=== PATIENT | female | born 1995 | race African-American/Black ===

== ENCOUNTER 2020-06-04 20:45 | Inpatient (IN) | payer SELFPAY ==
[2020-06-04 20:51] VITALS: BMI 21.8
--- NOTE | 2020-06-04 21:06 | PDOC ---
History of Present Illness - General Chief Complaint: Pain Stated Complaint: VOMITTING Time Seen by Provider: 06/04/20 21:05 - History of Present Illness Initial Comments: 25 yo F w/ history of ulcers p/w one day of vomiting and ABD pain. The vomiting started at 5am. She initially vomited a yellow-green, but by this evening it has turned brown w/ red streaks. She has been unable to eat since yesterday. States that when she cannot keep any food or drink down. A similar but less severe episode occurred in August 2019. She is prescribed pantoprazole, ranitidine, and carafate but admits to not being adherent. The ABD pain started this morning as well. It is on the R ABD anterior and posterior from the epigastric area to the level of the umbilicus. It is constant sharp and 7-8/10 that goes up to 10/10 when she wretches/dry heaves. She states the location of the pain is where her ulcers are/were. She has not had a recent endoscopy. Denies recent illness, recent travel, or EtOH use. Denies recent use of marijuana or any other illicit drug. +sexually active a few days ago with a man and does not use protection (no control or condom). Denies dysuria, hematuria, discharge +passed gas today and reports some diarrhea. 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 MSK: no loss of strength Neuro: no vertigo, WILSON, sleep changes. PE VS: 100.2deg F , 96bpm, 19RR, 100%ora Constitutional: Young female in moderate-severe distress. no odor of alcohol or marijuana Neuro: A/O x3 Skin: appears dry and hot HEENT: head is AT/NC, eyes not jaundiced, PERRLA, nares w/o erythema or exudate CV: RRR, normal S1/S2, no mgr appreciated Lungs: no deformities, normal expansion and respiratory effort, lungs are CTAB ABD: nondistended, no mottling appreciated, no deformities appreciated, ++bowel sounds , heartbeat auscultated on abdomen, non-tympanic, no HSM appreciated, palpation of R epigastric down to R umbilical region on anterior and posterior torso. +CVAtenderness on R. (-) Torres's sign. : deferred Assessment: :25yo sexually active febrile female w/ h/o ulcers p/w CVA tenderness, ABD pain + n/v today. Plan: 1. ABD pain - tylenol, Xray, ABD US, EKG,CT, test 2. n/v - zofran, reglan, IV rehydration, CMP, CBC, Past History - Medical History Allergies/Adverse Reactions: Allergies Allergy/AdvReac Type Severity Reaction Status Date / Time naproxen Allergy Verified 06/04/20 20:51 COPD: No GI Disorders: Yes (ulcer) - Psycho-Social/Smoking History Smoking History: Never smoked - Substance Abuse Hx (Audit-C & DAST Scrn) How often the patient has a drink containing alcohol: Monthly or less How often the patient has six or more drinks on one occasion: Less than monthly Score: In Men: 4 or > Positive; In Women: 3 or > Positive: 2 Screen Result (Pos requires Nsg. Audit-10AR): Negative In the last yr the pt used illegal drug/Rx for NonMed reason: No Score: Yes response is considered Positive: 0 Screen Result (Positive result requires Nsg. DAST-10): Negative *Physical Exam - Vital Signs Last Vital Signs Temp Pulse Resp BP Pulse Ox 98.7 F 96 H 19 100/78 100 06/04/20 20:48 06/04/20 20:48 06/04/20 20:48 06/04/20 20:48 06/04/20 20:48 ED Treatment Course - LABORATORY CBC & Chemistry Diagram: 06/04/20 21:25 06/04/20 21:25 Discharge - Discharge Information Problems reviewed: Yes Clinical Impression/Diagnosis: Intractable abdominal pain, Elevated temperature, History of ulcer disease Vomiting Qualifiers: Vomiting type: unspecified Vomiting Intractability: unspecified Condition: Fair - Admission Yes - Follow up/Referral Referrals: Joseph Muro MD [Staff Physician] - - Patient Discharge Instructions Patient Printed Discharge Instructions: DI for Prescription Opioid Use - Post Discharge Activity
[2020-06-04] MEDS ORDERED: SODIUM CHLORIDE 0.9% 500 ML INFUS.BAG IV ONE ×2 (21:16→23:51)
[2020-06-04] MEDS ORDERED: LACTATED RINGERS SOLUTION 1000 ML INFUS.BAG IV ONE (21:16)
[2020-06-04] MEDS ORDERED: ONDANSETRON 4 MG/2 ML VIAL IVPUSH ONE (21:17)
[2020-06-04] MEDS ORDERED: ACETAMINOPHEN 1000 MG/100 ML VIAL (NON FORMULARY) IVPB ONE (21:18)
--- NOTE | 2020-06-04 21:28 | PDOC ---
Attending Attestation - Resident Resident Name: Fabio Lainez - ED Attending Attestation I have performed the following: I have examined & evaluated the patient, The case was reviewed & discussed with the resident, I agree w/resident's findings & plan - HPI HPI: 06/04/20 21:28 Pt comes with complaint of vomiting and nausea since 5AM; she has a hx of peptic ulcers. Pt has RUQ pain no fam hx of disease. Pt not able to tolerate oral intake Pt smokes pot This may be cannabis hyperemesis - Physicial Exam PE: 06/05/20 00:17 Pt has musculoskeletal pain in her low back on the right side. Pt has no midline tenderness Afebrile VSS diffuse abd pain heart and lungs normal exam - Medical Decision Making 06/04/20 22:15 CBC is normal Hb/HCT is elevated; likely due to dehydration 06/05/20 02:37 Patient Name: ERIKA VALADEZ THIS IS A PRELIMINARY REPORT FROM [facility] DATE OF SERVICE: 2020-06-05 01:07:28 IMAGES: [id number] EXAM: Right upper quadrant abdominal ultrasound HISTORY: Abdominal pain nausea vomiting COMPARISON: None. FINDINGS: Heterogeneous appearing normal-sized liver. Normal gallbladder. No gallstones pericholecystic fluid or gallbladder wall thickening. Normal common bile duct measuring 1.5 mm. No right hydronephrosis. No right upper quadrant free fluid. No obvious pancreatic abnormalities) pancreatitis is best evaluated on CT). 06/05/20 02:38 Pt still feels nauseous and has right sided abd pain. She will get a CT scan of her bad pelvis to r/o pathology including appendicitis. Regardless of the finding, pt will be admitted, as she has nausea and cannot keep food down 06/05/20 03:38 Patient Name: ERIKA VALADEZ THIS IS A PRELIMINARY REPORT FROM [facility] DATE OF SERVICE: 2020-06-05 02:27:21 IMAGES: [id number] EXAM: CT abdomen and pelvis without and with contrast HISTORY: Vomiting and refractory nausea COMPARISON: None. FINDINGS There is no bowel obstruction or inflammation. Negative for diverticulitis or colitis. Normal appendix. No free intraperitoneal air or free fluid. Normal liver. Normal spleen. Normal pancreas. Normal adrenal glands. No urinary tract stone or obstruction. Left renal cyst. On the noncontrast scan the medullary pyramids are slightly dense and they do have a slight brush-like appearance. Nonspecific and not definitive that this can be seen in medullary sponge kidney/renal tubular ectasia. No obvious gallbladder abnormalities. Osseous structures are intact. 06/05/20 04:18 Pt will be admitted to hospitalists for continued pain and nausea. Heart Score/ECG Review - ECG Intrepretation Rhythm: Regular Rhythm - Archer Archer: Normal - P and NM Delta Wave(s) Present: No WPW: No - QRS Poor R Wave Progression: No Q Wave Present: No - ST and T Early Repolarization: No Non Specific ST-T Wave changes: No Flattened T Waves: No Prolonged Q-T Interval: No - ECG Impressions Normal ECG: Yes Non-specific ST Elevation: No Ischemic Changes: No Bradycardia: No Torsades lloyd Pointes: No Discharge - Discharge Information Problems reviewed: Yes Clinical Impression/Diagnosis: Intractable vomiting with nausea, Intractable abdominal pain, Elevated temperature, History of ulcer disease Vomiting Qualifiers: Vomiting type: unspecified Vomiting Intractability: unspecified Condition: Improved - Follow up/Referral - Patient Discharge Instructions - Post Discharge Activity
[2020-06-04 21:40] LABS: BASO % 0.7 % (0-2.0); HEMATOCRIT 46.3 % (32.4-45.2); HEMOGLOBIN 15.6 GM/dL (10.7-15.3); LYMPH % 7.9 % (8-40); MCH 31.1 pg (25.7-33.7); MCHC 33.7 g/dl (32.0-36.0); MEAN CELL VOLUME 92.4 fl (80-96); MEAN PLT VOLUME 9.5 fl (7.5-11.1); MONO % 6.7 % (3.8-10.2); NEUT % 84.7 % (42.8-82.8); PLATELET COUNT 286 K/MM3 (134-434); RBC 5.01 M/mm3 (3.60-5.2); RDW 13.9 % (11.6-15.6); WHITE BLOOD COUNT 10.3 K/mm3 (4.0-10.0)
[2020-06-04] MEDS ORDERED: ACETAMINOPHEN INJECTION 100 ML IVPB ONE (21:54)
[2020-06-04] MEDS ORDERED: DICYCLOMINE HCL 20 MG/2 ML AMPUL IM ONE (21:54)
[2020-06-04] MEDS ORDERED: METOCLOPRAMIDE HCL INJECTION 10 MG/2 ML VIAL IVPUSH ONE (21:55)
[2020-06-04] MEDS ORDERED: METOCLOPRAMIDE HCL INJECTION 10 MG/2 ML VIAL ONE (22:02)
[2020-06-04] MEDS ORDERED: FAMOTIDINE 20 MG/50 ML IVPB 20 MG/50 ML MG IVPB ONE ×2 (22:04→22:31)
[2020-06-04 22:18] LABS: ALBUMIN 5.4 g/dl (3.4-5.0); BLOOD UREA NITROGEN 23.3 mg/dL (7-18); CALCIUM 10.7 mg/dL (8.5-10.1); CREATININE 1.1 mg/dL (0.55-1.3); POTASSIUM 3.7 mmol/L (3.5-5.1); TOT PROT 9.4 g/dl (6.4-8.2)
[2020-06-04] MEDS ORDERED: LACTATED RINGERS SOLUTION 1,000 ML/1,000 ML INFUS.BAG IV STA (22:42)
[2020-06-04] MEDS ORDERED: PANTOPRAZOLE SODIUM 40 MG VIAL IVPUSH ONE (23:28)
[2020-06-04] MEDS ORDERED: PANTOPRAZOLE SODIUM 40 MG VIAL ONE (23:30)
[2020-06-04 23:44] LABS: COCAINE, UR NEGATIVE ng/ml (CUTOFF=300); OPIATES, URI NEGATIVE ng/ml (CUTOFF=300); URINE AMPHETAMINES NEGATIVE ng/ml (CUTOFF=500); URINE BARBITURATES NEGATIVE ng/ml (CUTOFF=200)
[2020-06-04 23:46] LABS: URINE COLOR YELLOW
[2020-06-04 23:47] LABS: PH,URINE 5.5 (5.0-8.0); URINE APPEARANCE CLOUDY; URINE BILIRUBIN NEGATIVE (NEGATIVE); URINE GLUCOSE (UA) NEGATIVE (NEGATIVE); URINE KETONE 3+ (NEGATIVE); URINE LEUK ESTERASE NEGATIVE (NEGATIVE); URINE NITRITE NEGATIVE (NEGATIVE); URINE PROTEIN 2+ (NEGATIVE)
[2020-06-04] MEDS ORDERED: HALOPERIDOL LACTATE 5 MG/ML IV ONE (23:51)
[2020-06-04] MEDS ORDERED: HALOPERIDOL LACTATE 5 MG/ML ONE (23:51)
[2020-06-04 23:52] LABS: METHADONE, UR NEGATIVE ng/ml (CUTOFF=300); PHENCYCLIDINE,URINE NEGATIVE ng/ml (CUTOFF=25); URINE BENZODIAZEPINES NEGATIVE ng/ml (CUTOFF=200)
[2020-06-05] MEDS ORDERED: morphine CARPU-JECT 2 MG/1 ML DISP.SYRIN IVPUSH ONE (01:43)
[2020-06-05] MEDS ORDERED: ONDANSETRON 4 MG/2 ML VIAL IVPUSH ONE (01:47)
[2020-06-05] MEDS ORDERED: LACTATED RINGERS SOLUTION 1,000 ML/1,000 ML INFUS.BAG IV STA (01:48)
[2020-06-05] MEDS ORDERED: MORPHINE SULFATE 2 MG/ML VIAL ONE (02:07)
--- NOTE | 2020-06-05 04:40 | PDOC ---
*Physical Exam - Vital Signs Last Vital Signs Temp Pulse Resp BP Pulse Ox 98.7 F 78 17 122/74 98 06/04/20 20:48 06/05/20 00:30 06/05/20 00:30 06/05/20 00:30 06/05/20 00:30 ED Treatment Course - LABORATORY CBC & Chemistry Diagram: 06/04/20 21:25 06/04/20 21:25 - ADDITIONAL ORDERS Additional order review: Laboratory Results 06/04/20 06/04/20 06/04/20 23:28 23:28 23:28 Sodium Potassium Chloride Carbon Dioxide Anion Gap BUN Creatinine Est GFR (CKD-EPI)AfAm Est GFR (CKD-EPI)NonAf Random Glucose Calcium Total Bilirubin AST ALT Alkaline Phosphatase Total Protein Albumin Lipase Urine Color Yellow Urine Appearance Cloudy Urine pH 5.5 Ur Specific [place] 1.038 H Urine Protein 2+ H Urine Glucose (UA) Negative Urine Ketones 3+ H Urine Blood Negative Urine Nitrite Negative Urine Bilirubin Negative Urine Urobilinogen 1.0 Ur Leukocyte Esterase Negative Urine HCG, Qual Negative Opiates Screen Negative Methadone Screen Negative Barbiturate Screen Negative Phencyclidine Screen Negative Ur Amphetamines Screen Negative MDMA (Ecstasy) Screen Negative Benzodiazepines Screen Negative Cocaine Screen Negative U Marijuana (THC) Screen Positive A* 06/04/20 21:25 Sodium 136 Potassium 3.7 Chloride 95 L Carbon Dioxide 24 Anion Gap 17 H BUN 23.3 H Creatinine 1.1 Est GFR (CKD-EPI)AfAm 79.68 Est GFR (CKD-EPI)NonAf 68.75 Random Glucose 117 H Calcium 10.7 H Total Bilirubin 1.0 AST 23 ALT 22 Alkaline Phosphatase 72 Total Protein 9.4 H Albumin 5.4 H Lipase 31 L Urine Color Urine Appearance Urine pH Ur Specific [place] Urine Protein Urine Glucose (UA) Urine Ketones Urine Blood Urine Nitrite Urine Bilirubin Urine Urobilinogen Ur Leukocyte Esterase Urine HCG, Qual Opiates Screen Methadone Screen Barbiturate Screen Phencyclidine Screen Ur Amphetamines Screen MDMA (Ecstasy) Screen Benzodiazepines Screen Cocaine Screen U Marijuana (THC) Screen 06/04/20 21:25 RBC 5.01 MCV 92.4 MCHC 33.7 RDW 13.9 MPV 9.5 Neutrophils % 84.7 H Lymphocytes % 7.9 L Monocytes % 6.7 Eosinophils % 0.0 Basophils % 0.7 - Medications Given in the ED: ED Medications Discontinued Medications Generic Name Dose Route Start Last Admin Trade Name Itz PRN Reason Stop Dose Admin Acetaminophen 1,000 mg 06/04/20 21:18 06/04/20 21:59 Ofirmev Injection - IVPB 06/04/20 21:19 1,000 mg ONCE ONE Administration Dicyclomine HCl 20 mg 06/04/20 21:54 06/04/20 22:08 Bentyl Injection - IM 06/04/20 21:55 20 mg ONCE ONE Administration Diphenhydramine HCl 50 mg 06/04/20 23:32 06/05/20 03:45 Benadryl Injection - IVPB 06/04/20 23:33 Not Given ONCE ONE Haloperidol 5 mg 06/04/20 23:51 06/04/20 23:58 Haldol Injection (Fast Acting) - IV 06/04/20 23:52 5 mg ONCE ONE Administration Famotidine/Sodium Chloride 20 mg in 50 mls @ 100 mls/hr 06/04/20 22:04 06/04/20 22:43 Pepcid 20 Mg Premixed Ivpb - IVPB 06/04/20 22:33 100 mls/hr ONCE ONE Administration Lactated Ringer's 1,000 ml in 1,000 mls @ 1,000 mls/hr 06/04/20 22:42 06/04/20 23:06 Lactated Ringers Solution IV 06/04/20 23:41 1,000 mls/hr ONCE STA Administration Lactated Ringer's 1,000 ml in 1,000 mls @ 1,000 mls/hr 06/05/20 01:48 06/05/20 02:24 Lactated Ringers Solution IV 06/05/20 02:47 1,000 mls/hr ONCE STA Administration Lactated Ringer's 1,000 ml 06/04/20 21:16 06/04/20 21:59 Lactated Ringers Solution IV 06/04/20 21:17 1,000 ml NOW ONE Administration Metoclopramide HCl 10 mg 06/04/20 21:55 06/04/20 22:08 Reglan Injection - IVPUSH 06/04/20 21:56 10 mg ONCE ONE Administration Morphine Sulfate 1 mg 06/05/20 01:43 06/05/20 03:45 Morphine Injection - IVPUSH 06/05/20 01:44 Not Given ONCE ONE Ondansetron HCl 4 mg 06/04/20 21:17 06/04/20 21:27 Zofran Injection IVPUSH 06/04/20 21:18 4 mg ONCE ONE Administration Ondansetron HCl 4 mg 06/05/20 01:47 06/05/20 02:24 Zofran Injection IVPUSH 06/05/20 01:48 4 mg ONCE ONE Administration Pantoprazole Sodium 40 mg 06/04/20 23:28 06/04/20 23:29 Protonix Iv IVPUSH 06/04/20 23:29 40 mg ONCE ONE Administration Sodium Chloride 1,000 ml 06/04/20 21:16 06/04/20 21:52 Normal Saline - IV 06/04/20 21:17 Not Given ONCE ONE Sodium Chloride 1,000 ml 06/04/20 23:51 06/05/20 00:34 Normal Saline - IV 06/04/20 23:52 1,000 ml ONCE ONE Administration Medical Decision Making - Medical Decision Making Discussed case with Dr. Bruce who accepted patient for admission under Dr. Barker 06/05/20 04:39 Discharge - Discharge Information Problems reviewed: Yes Clinical Impression/Diagnosis: Intractable vomiting with nausea Condition: Guarded - Admission Yes - Follow up/Referral Referrals: Joseph Muro MD [Staff Physician] - - Patient Discharge Instructions - Post Discharge Activity
--- NOTE | 2020-06-05 05:32 | HP ---
CHIEF COMPLAINT: I have abdominal pain PCP: none HISTORY OF PRESENT ILLNESS: 25 y F with a PMH of Peptic ulcer disease, presents to ED with 1 d of Abdominal pain associated with nausea, vomiting, anorexia and diarrhea. Patient report that the abdominal pain started while she was sleeping around 5 am. She has vomited about 40x since then. She reports that the pain was 10/10 sharp, constant and now in ED its crampy. She denies any recent endoscopy. She admits that she takes home meds(Zofran and Pepcid) for Ulcers, but is not compliant with her medications. She reports her LMP was at the end of last month with no abnormalities noted. She is currently sexually active with 1 partner, denies use of any control. Patient has no previous admissions to [facility]. ED Course: Patient was given multiple, medications (Acetaminophen 1000mg, Dicyclomine 20mg, Haloperidol 5mg, Metoclopromid inj 4mg, pepcid 20mg, pantoprazole 40mg) for pain and nausea, but patient reports no improvements. Labs were significant for WBC 10.3, BUN/Crea 23.3/1.1, Anion Gap 17 with Calium 10.7 albumin 5.4, UA reveal Protein +3 and Ketones 3+. Negative test. Imaging ( u/s, ABD/pelv CT, CXR, ABD XR) did not reveal any acute pathology. The patient is admitted to [facility] for Management of her acute abdominal pain. ER course was notable for: (1) WBC 10.3 (2) Calcium 10.7 / Albumin 5.4 (3) Proteins +3 albumin 5.4 Recent Travel: Denies PAST MEDICAL HISTORY: As above in HPI PAST SURGICAL HISTORY: Denies Social History: Smoking: Denies Alcohol: Occasionally Drugs: Denies Allergies naproxen Allergy (Verified 06/04/20 20:51) HOME MEDICATIONS: REVIEW OF SYSTEMS CONSTITUTIONAL: Present: loss of appetite Absent: fever, chills, diaphoresis, generalized weakness, malaise HEENT: Absent: rhinorrhea, nasal congestion, throat pain, difficulty swallowing, CARDIOVASCULAR: Absent: chest pain, syncope, palpitations, irregular heart rate, lightheadedness, peripheral edema RESPIRATORY: Absent: cough, shortness of breath, dyspnea with exertion, orthopnea, wheezing GASTROINTESTINAL: Absent: abdominal pain, abdominal distension, nausea, vomiting, diarrhea, constipation GENITOURINARY: Absent: dysuria, frequency, urgency, hesitancy, hematuria, flank pain, genital pain MUSCULOSKELETAL: Present: Back pain Absent: myalgia, arthralgia, joint swelling, back pain, neck pain PHYSICAL EXAMINATION Vital Signs - 24 hr 06/04/20 06/05/20 20:48 00:30 Temperature 98.7 F Pulse Rate 96 H Pulse Rate [ 78 Left Radial] Respiratory 19 17 Rate Blood Pressure 100/78 Blood Pressure 122/74 [Right Arm] O2 Sat by Pulse 100 98 Oximetry (%) GENERAL: Awake, alert, and fully oriented, in no acute distress. HEAD: Normal with no signs of trauma. EYES: Pupils equal, round and reactive to light, extraocular movements intact, sclera anicteric, conjunctiva clear. EARS, NOSE, THROAT: Ears normal, nares patent, oropharynx clear without exudates. Moist mucous membranes. NECK: Normal range of motion, supple without lymphadenopathy, JVD, or masses. LUNGS: Breath sounds equal, clear to auscultation bilaterally. No wheezes, and no crackles. No accessory muscle use. HEART: Regular rate and rhythm, normal S1 and S2 without murmur, rub or gallop. ABDOMEN: Soft, Tenderness to palpation of RUQ and RLQ, not distended, normoactive bowel sounds, no guarding, no rebound, no masses. MUSCULOSKELETAL: Normal range of motion at all joints. No bony deformities or tenderness. CVA tenderness. UPPER EXTREMITIES: 2+ pulses, warm, well-perfused. No cyanosis. No clubbing. No peripheral edema. LOWER EXTREMITIES: 2+ pulses, warm, well-perfused. No calf tenderness. No peripheral edema. NEUROLOGICAL: Cranial nerves II-XII intact. Normal speech. Normal gait. PSYCHIATRIC: Cooperative. Good eye contact. Appropriate mood and affect. SKIN: Warm, dry, normal turgor, no rashes or lesions noted, normal capillary refill. Laboratory Results - last 24 hr 06/04/20 06/04/20 06/04/20 21:25 21:25 23:28 WBC 10.3 H RBC 5.01 Hgb 15.6 H Hct 46.3 H MCV 92.4 MCH 31.1 MCHC 33.7 RDW 13.9 Plt Count 286 MPV 9.5 Absolute Neuts (auto) 8.7 H Neutrophils % 84.7 H Lymphocytes % 7.9 L Monocytes % 6.7 Eosinophils % 0.0 Basophils % 0.7 Nucleated RBC % 0 Sodium 136 Potassium 3.7 Chloride 95 L Carbon Dioxide 24 Anion Gap 17 H BUN 23.3 H Creatinine 1.1 Est GFR (CKD-EPI)AfAm 79.68 Est GFR (CKD-EPI)NonAf 68.75 Random Glucose 117 H Calcium 10.7 H Total Bilirubin 1.0 AST 23 ALT 22 Alkaline Phosphatase 72 Total Protein 9.4 H Albumin 5.4 H Lipase 31 L Urine Color Urine Appearance Urine pH Ur Specific [place] Urine Protein Urine Glucose (UA) Urine Ketones Urine Blood Urine Nitrite Urine Bilirubin Urine Urobilinogen Ur Leukocyte Esterase Urine HCG, Qual Negative Opiates Screen Methadone Screen Barbiturate Screen Phencyclidine Screen Ur Amphetamines Screen MDMA (Ecstasy) Screen Benzodiazepines Screen Cocaine Screen U Marijuana (THC) Screen 06/04/20 06/04/20 23:28 23:28 WBC RBC Hgb Hct MCV MCH MCHC RDW Plt Count MPV Absolute Neuts (auto) Neutrophils % Lymphocytes % Monocytes % Eosinophils % Basophils % Nucleated RBC % Sodium Potassium Chloride Carbon Dioxide Anion Gap BUN Creatinine Est GFR (CKD-EPI)AfAm Est GFR (CKD-EPI)NonAf Random Glucose Calcium Total Bilirubin AST ALT Alkaline Phosphatase Total Protein Albumin Lipase Urine Color Yellow Urine Appearance Cloudy Urine pH 5.5 Ur Specific [place] 1.038 H Urine Protein 2+ H Urine Glucose (UA) Negative Urine Ketones 3+ H Urine Blood Negative Urine Nitrite Negative Urine Bilirubin Negative Urine Urobilinogen 1.0 Ur Leukocyte Esterase Negative Urine HCG, Qual Opiates Screen Negative Methadone Screen Negative Barbiturate Screen Negative Phencyclidine Screen Negative Ur Amphetamines Screen Negative MDMA (Ecstasy) Screen Negative Benzodiazepines Screen Negative Cocaine Screen Negative U Marijuana (THC) Screen Positive A* ASSESSMENT/PLAN: 25 y F with a PMH of Peptic ulcer disease, presents to ED with 1 d of Abdominal pain associated with nausea, vomiting, anorexia and diarrhea. Labs were significant for WBC 10.3, BUN/Crea 23.3/1.1, Anion Gap 17 with Calium 10.7 albumin 5.4, UA reveal Protein +3 and Ketones 3+. Negative test. Imaging ( u/s, ABD/pelv CT, CXR, ABD XR) did not reveal any acute pathology. Physical exam was significant for CVA tenderness. Patient was admitted to [place] for management for her Intractable abdominal pain. #Intractable abdominal pain: - 1 D of 09/02 abdominal pain w/ vomiting, diarrhea and anorexia - Imaging revealed no acute pathology - Sexually active, No contraceptions, Negative urine test - Continue Pain med Acetaminophen 650mg - Continue Zofran 4mg - F/U with Blood culture and Urine Culture - F/U with STI (chlamydia and N. gonorrhea), HIV panel - Continue IVF N/S #Anion Gap #Hypercalcemia #Hyperalbuminemia - Anion Gap 17, Calcium 10.7, Albumin 5.4 - F/U PTH, TSH - F/U Magnesium - F/U HbA1c and BGM #FEN - N/S 83 mls/Hr - Monitor Mg, Calcium, and Albumin - Clear liquid diet # DVT PPx: No chemical PPX at this time, Hx of PUD - SCDs # Dispo: - will continue to monitor patient in [place] Visit type - Emergency Visit Emergency Visit: Yes ED Registration Date: 06/05/20 Care time: The patient presented to the Emergency Department on the above date and was hospitalized for further evaluation of their emergent condition. - New Patient This patient is new to me today: Yes Date on this admission: 06/05/20 - Critical Care Critical Care patient: No ATTENDING PHYSICIAN STATEMENT I saw and evaluated the patient. I reviewed the resident's note and discussed the case with the resident. I agree with the resident's findings and plan as documented. SUBJECTIVE: OBJECTIVE: ASSESSMENT AND PLAN:
--- NOTE | 2020-06-05 07:05 | PN ---
Teaching Attending Note Name of Resident: Louise Faustin ATTENDING PHYSICIAN STATEMENT I saw and evaluated the patient. I reviewed the resident's note and discussed the case with the resident. I agree with the resident's findings and plan as documented. SUBJECTIVE: OBJECTIVE: ASSESSMENT AND PLAN: 25 y Female with a PMHx notable for Peptic ulcer disease, who presents to ED with epigastric pain x [address] abdomen/pelvis with no acute findings. Agree further work-up : check hemoglobin A1c/thyroid function tests, follow-up UA
[2020-06-05] MEDS ORDERED: ACETAMINOPHEN 325 MG TABLET (FP) PO PRN (07:12)
[2020-06-05] MEDS ORDERED: ONDANSETRON 4 MG/2 ML VIAL IVPUSH PRN (07:14)
[2020-06-05] MEDS ORDERED: SODIUM CHLORIDE 1,000 ML IV SCH (07:15)
--- NOTE | 2020-06-05 08:14 | PN ---
Teaching Attending Note Name of Resident: Juliane Carrasco ATTENDING PHYSICIAN STATEMENT I saw and evaluated the patient. I reviewed the resident's note and discussed the case with the resident. I agree with the resident's findings and plan as documented. SUBJECTIVE: Patient feels improved able to tolerate p.o. wants to go home OBJECTIVE: Vital Signs Temperature 98.3 F 06/05/20 06:45 Pulse Rate 69 06/05/20 06:45 Respiratory Rate 17 06/05/20 06:45 Blood Pressure 111/53 L 06/05/20 06:45 O2 Sat by Pulse Oximetry (%) 98 06/05/20 06:45 General: Young female, comfortable, not in distress HEENT mucous membranes moist, no anemia, no jaundice, PERRLA, no nystagmus Neck: No JVD, supple, no bruit, thyroid palpably normal, normal carotid pulsations. Chest: Nontender, clear to auscultation bilaterally CVS: S1-S2 regular no murmur/gallop/rub Abdomen: Mild epigastric tenderness: Nondistended, soft, bowel sounds present. 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 , no gross motor sensory deficit CBC, BMP 06/05/20 11:10 06/05/20 11:10 Hepatic Panel Total Bilirubin 0.8 mg/dL (0.2-1) 06/05/20 11:10 AST 18 U/L (15-37) 06/05/20 11:10 ALT 19 U/L (13-61) 06/05/20 11:10 Alkaline Phosphatase 57 U/L (45-117) 06/05/20 11:10 Albumin 4.0 g/dl (3.4-5.0) 06/05/20 11:10 Lipase: Normal CT abdomen: No acute changes Abdominal ultrasound: No hepatobiliary abnormality ASSESSMENT AND PLAN: 25-year-old female no past medical history presents with acute onset nausea vomiting unable to tolerate, imaging unremarkable for Patient has starvation ketoacidosis with anion gap greatly improved overnight patient improved with conservative management IV hydration stop Zofran and PPI able to tolerate p.o. wants to go home Activity: 1. Acute gastritis: Improved switch to p.o. famotidine and PRN Zofran 2. A starvation ketoacidosis: Resolved tolerating p.o. 3. Anion gap acidosis:) IV hydration 4. Hypokalemia: We will replete before discharge Patient can be discharged home after hypokalemia repletion follow-up with the PMD.
[2020-06-05] MEDS ORDERED: D5-1/2NS+10 MEQ KCL - 10 MEQ/1,000 ML INFUS.BAG IV SCH (08:30)
[2020-06-05] MEDS ORDERED: FAMOTIDINE 20 MG/50 ML IVPB 20 MG/50 ML MG IVPB ONE (09:24)
--- NOTE | 2020-06-05 09:33 | EKG ---
Test Reason : Blood Pressure : / mmHG Vent. Rate : 068 BPM Atrial Rate : 068 BPM P-R Int : 144 ms QRS Dur : 082 ms QT Int : 426 ms P-R-T Axes : 072 072 060 degrees QTc Int : 452 ms SINUS RHYTHM WITH MARKED SINUS ARRHYTHMIA OTHERWISE NORMAL ECG NO PREVIOUS ECGS AVAILABLE Confirmed by Dwaine Chakraborty ([id number]) on 06/05/2020 9:33:18 AM Referred By: Confirmed By:Dwaine Chakraborty
[2020-06-05] MEDS ORDERED: FAMOTIDINE 20 MG/50 ML IVPB 20 MG/50 ML MG IVPB SCH (10:00)
[2020-06-05 11:30] LABS: BASO % 1.1 % (0-2.0); EOS % 0.4 % (0-4.5); HEMATOCRIT 37.2 % (32.4-45.2); HEMOGLOBIN 12.7 GM/dL (10.7-15.3); LYMPH % 26.8 % (8-40); MCH 31.5 pg (25.7-33.7); MCHC 34.1 g/dl (32.0-36.0); MEAN CELL VOLUME 92.2 fl (80-96); MEAN PLT VOLUME 8.7 fl (7.5-11.1); MONO % 12.1 % (3.8-10.2); NEUT % 59.6 % (42.8-82.8); PLATELET COUNT 203 K/MM3 (134-434); RBC 4.04 M/mm3 (3.60-5.2); RDW 14.1 % (11.6-15.6); WHITE BLOOD COUNT 5.4 K/mm3 (4.0-10.0)
[2020-06-05 12:14] LABS: BILIRUBIN,TOTAL 0.8 mg/dL (0.2-1); CALCIUM 8.7 mg/dL (8.5-10.1); CREATININE 0.7 mg/dL (0.55-1.3); MAGNESIUM 2.2 mg/dL (1.8-2.4); PHOSPHOROUS 3.5 mg/dL (2.5-4.9); POTASSIUM 3.3 mmol/L (3.5-5.1)
--- NOTE | 2020-06-05 12:15 | DS ---
Physical Exam: SUBJECTIVE: Patient seen and examined. Patient reports feeling well, has no complaints, and wants to go home. OBJECTIVE: Vital Signs Temperature 98.4 F 06/05/20 12:34 Pulse Rate 83 06/05/20 12:34 Respiratory Rate 20 06/05/20 12:34 Blood Pressure 116/69 06/05/20 12:34 O2 Sat by Pulse Oximetry (%) 98 06/05/20 12:34 PHYSICAL EXAM GENERAL: The patient is awake, alert, and fully oriented, in no acute distress. HEAD: Normal with no signs of trauma. EYES:PERRLA, EOMI, sclera anicteric, conjunctiva clear. ENT:moist mucous membranes. NECK: supple. LUNGS: Breath sounds equal, clear to auscultation bilaterally HEART: Regular rate and rhythm, S1, S2 ABDOMEN: Soft, nontender, nondistended, normoactive bowel sounds NEUROLOGICAL: Cranial nerves II through XII grossly intact. Normal speech PSYCH: Normal mood, normal affect. SKIN: Warm, dry, normal turgor LABS Laboratory Results - last 24 hr 06/04/20 06/04/20 06/04/20 21:25 21:25 23:28 WBC 10.3 H RBC 5.01 Hgb 15.6 H Hct 46.3 H MCV 92.4 MCH 31.1 MCHC 33.7 RDW 13.9 Plt Count 286 MPV 9.5 Absolute Neuts (auto) 8.7 H Neutrophils % 84.7 H Lymphocytes % 7.9 L Monocytes % 6.7 Eosinophils % 0.0 Basophils % 0.7 Nucleated RBC % 0 Sodium 136 Potassium 3.7 Chloride 95 L Carbon Dioxide 24 Anion Gap 17 H BUN 23.3 H Creatinine 1.1 Est GFR (CKD-EPI)AfAm 79.68 Est GFR (CKD-EPI)NonAf 68.75 Random Glucose 117 H Hemoglobin A1c % Calcium 10.7 H Phosphorus Magnesium Total Bilirubin 1.0 AST 23 ALT 22 Alkaline Phosphatase 72 Total Protein 9.4 H Albumin 5.4 H Lipase 31 L Urine Color Urine Appearance Urine pH Ur Specific [place] Urine Protein Urine Glucose (UA) Urine Ketones Urine Blood Urine Nitrite Urine Bilirubin Urine Urobilinogen Ur Leukocyte Esterase Urine HCG, Qual Negative Opiates Screen Methadone Screen Barbiturate Screen Phencyclidine Screen Ur Amphetamines Screen MDMA (Ecstasy) Screen Benzodiazepines Screen Cocaine Screen U Marijuana (THC) Screen 06/04/20 06/04/20 06/05/20 23:28 23:28 11:10 WBC 5.4 RBC 4.04 Hgb 12.7 Hct 37.2 D MCV 92.2 MCH 31.5 MCHC 34.1 RDW 14.1 Plt Count 203 D MPV 8.7 Absolute Neuts (auto) 3.2 Neutrophils % 59.6 D Lymphocytes % 26.8 D Monocytes % 12.1 H D Eosinophils % 0.4 D Basophils % 1.1 Nucleated RBC % 0 Sodium Potassium Chloride Carbon Dioxide Anion Gap BUN Creatinine Est GFR (CKD-EPI)AfAm Est GFR (CKD-EPI)NonAf Random Glucose Hemoglobin A1c % Calcium Phosphorus Magnesium Total Bilirubin AST ALT Alkaline Phosphatase Total Protein Albumin Lipase Urine Color Yellow Urine Appearance Cloudy Urine pH 5.5 Ur Specific [place] 1.038 H Urine Protein 2+ H Urine Glucose (UA) Negative Urine Ketones 3+ H Urine Blood Negative Urine Nitrite Negative Urine Bilirubin Negative Urine Urobilinogen 1.0 Ur Leukocyte Esterase Negative Urine HCG, Qual Opiates Screen Negative Methadone Screen Negative Barbiturate Screen Negative Phencyclidine Screen Negative Ur Amphetamines Screen Negative MDMA (Ecstasy) Screen Negative Benzodiazepines Screen Negative Cocaine Screen Negative U Marijuana (THC) Screen Positive A* 06/05/20 06/05/20 11:10 11:10 WBC RBC Hgb Hct MCV MCH MCHC RDW Plt Count MPV Absolute Neuts (auto) Neutrophils % Lymphocytes % Monocytes % Eosinophils % Basophils % Nucleated RBC % Sodium 138 Potassium 3.3 L Chloride 102 Carbon Dioxide 29 Anion Gap 7 L BUN 12.0 Creatinine 0.7 Est GFR (CKD-EPI)AfAm 137.62 Est GFR (CKD-EPI)NonAf 118.74 Random Glucose 96 Hemoglobin A1c % 5.4 Calcium 8.7 Phosphorus 3.5 Magnesium 2.2 Total Bilirubin 0.8 AST 18 ALT 19 Alkaline Phosphatase 57 Total Protein Albumin 4.0 Lipase Urine Color Urine Appearance Urine pH Ur Specific [place] Urine Protein Urine Glucose (UA) Urine Ketones Urine Blood Urine Nitrite Urine Bilirubin Urine Urobilinogen Ur Leukocyte Esterase Urine HCG, Qual Opiates Screen Methadone Screen Barbiturate Screen Phencyclidine Screen Ur Amphetamines Screen MDMA (Ecstasy) Screen Benzodiazepines Screen Cocaine Screen U Marijuana (THC) Screen HOSPITAL COURSE: Date of Admission:06/05/20 Date of Discharge: 06/05/20 Patient is a 25 y F with a PMH of Peptic ulcer disease, presents to ED with 1 d of Abdominal pain associated with nausea, vomiting, anorexia and diarrhea. Labs were significant for WBC 10.3, BUN/Crea 23.3/1.1, Anion Gap 17 with Calcium 10.7 albumin 5.4, UA reveal Protein +3 and Ketones 3+. Negative test. Imaging ( abdominal u/s, ABD/pelv CT, CXR, ABD XR) did not reveal any acute pathology. Patient was given Tylenol for pain. Patient reported resolution of pain and wanted to go home. Repeat labs in the morning were unremarkable except for hypokalemia. Patient was given KCl prior to discharge and was advised to follow up with [facility]. Minutes to complete discharge: 36 Discharge Summary Problems reviewed: Yes Reason For Visit: INTRACTABLE VOMITTING WITH NAUSEA Current Active Problems Elevated temperature (Acute) History of ulcer disease (Acute) Intractable abdominal pain (Acute) Vomiting (Acute) Condition: Improved - Instructions Diet, Activity, Other Instructions: Your visit You were admitted to the hospital because you had belly pain. CAT scan and ultrasound of your belly was done which was unremarkable. Medications Please take the following medications as prescribed. 1. Famotidine 20mg twice a day. 2. Zofran 4mg every 8 hours as needed for Followup Please follow up with your primary care provider in 1-2 weeks. If you do not have one, we provided you a referral. Additional info Please call 911 or go to the ED if with any worsening fevers, chills, headache, dizziness, chest pain, shortness of breath, belly pain, or any new concerns noted. Referrals: [facility] [place] [facility] [place] [Provider Group] Disposition: HOME - Home Medications Comprehensive Discharge Medication List: Ambulatory Orders Famotidine [Pepcid] 20 mg PO BID #30 tablet 06/05/20 Ondansetron HCl [Zofran] 4 mg PO Q8H PRN #10 tablet 06/05/20 This patient is new to me today: Yes Date on this admission: 06/05/20 Emergency Visit: Yes ED Registration Date: 06/05/20 Care time: The patient presented to the Emergency Department on the above date and was hospitalized for further evaluation of their emergent condition. Critical Care patient: No - Discharge Referral Referred to [facility] No ATTENDING PHYSICIAN STATEMENT I saw and evaluated the patient. I reviewed the resident's note and discussed the case with the resident. I agree with the resident's findings and plan as documented. SUBJECTIVE: OBJECTIVE: ASSESSMENT AND PLAN:
[2020-06-05 12:18] LABS: TOT PROT 7.1 g/dl (6.4-8.2)
[2020-06-05] MEDS ORDERED: POTASSIUM CHLORIDE TABS 10 MEQ TABLET.ER (FP) PO ONE (12:26)
[2020-06-05 12:34] VITALS: BP 116/69; PULSE 83; TEMP 98.4
[2020-06-05] MEDS ORDERED: POTASSIUM CHLORIDE TABS 20 MEQ TABLET.ER (FP) PO ONE (12:41)
[2020-06-05] MEDS ORDERED: POTASSIUM CHLORIDE ORAL LIQUID 20 MEQ/15 ML PO ONE (13:00)
== END 2020-06-05 12:36 | disposition home or self-care (01) | DRG 241 ==
LOC: JER 20:45 → JERBED 06-05 03:40
PROVIDERS: ADMIT Internal Medicine; ATTEND Internal Medicine
DX: K29.00 Acute gastritis without bleeding (principal); E83.52 Hypercalcemia; R10.9 Unspecified abdominal pain; R63.0 Anorexia; Z68.21 Body mass index [BMI] 21.0-21.9, adult; F12.90 Cannabis use, unspecified, uncomplicated; E87.6 Hypokalemia; R11.2 Nausea with vomiting, unspecified; E86.0 Dehydration; N28.1 Cyst of kidney, acquired; E87.2 Acidosis; Z87.11 Personal history of peptic ulcer disease
CPT/HCPCS: 36415; 71046-TC-FY; 74019-TC-FY; 74178-TC; 76705-TC; 80053; 80307; 81003; 83036; 83690; 83735; 83970; 84100; 84443; 84703; 85025; 87040; 87389; 93005; 93010; 99285-25; J0131; Q9967

== ENCOUNTER 2020-06-16 18:58 | Inpatient (IN) | payer OTHER ==
--- NOTE | 2020-06-16 19:10 | PDOC ---
Rapid Medical Evaluation Time Seen by Provider: 06/16/20 19:07 Medical Evaluation: Allergies Allergy/AdvReac Type Severity Reaction Status Date / Time naproxen Allergy Verified 06/04/20 20:51 06/16/20 19:07 Pt presents for evaluation of vomiting. Admits to marijuana use. States warm showers helps her symptoms. Currently with blood tinged vomit in her vomit back Exam: hunched over, actively vomiting Orders: labs, IV, meds Pt to proceed to the ER for further evaluation Discharge Disposition - Diagnosis Intractable vomiting with nausea - Referrals - Patient Instructions - Post Discharge Activity
[2020-06-16] MEDS ORDERED: ACETAMINOPHEN 1000 MG/100 ML VIAL (NON FORMULARY) IVPB ONE (19:11)
[2020-06-16] MEDS ORDERED: METOCLOPRAMIDE HCL INJECTION 10 MG/2 ML VIAL IVPB ONE (19:11)
[2020-06-16] MEDS ORDERED: SODIUM CHLORIDE 1,000 ML IV STA (19:11)
[2020-06-16] MEDS ORDERED: ONDANSETRON 4 MG/2 ML VIAL IVPUSH ONE ×2 (19:11→22:12)
[2020-06-16] MEDS ORDERED: ACETAMINOPHEN INJECTION 100 ML IVPB ONE (19:34)
[2020-06-16] MEDS ORDERED: METOCLOPRAMIDE HCL INJECTION 10 MG/2 ML VIAL ONE (19:34)
[2020-06-16 19:54] LABS: BASO % 0.8 % (0-2.0); EOS % 0.2 % (0-4.5); HEMATOCRIT 45.7 % (32.4-45.2); HEMOGLOBIN 15.6 GM/dL (10.7-15.3); LYMPH % 19.7 % (8-40); MCH 31.6 pg (25.7-33.7); MCHC 34.2 g/dl (32.0-36.0); MEAN CELL VOLUME 92.5 fl (80-96); MEAN PLT VOLUME 9.2 fl (7.5-11.1); MONO % 9.2 % (3.8-10.2); NEUT % 70.1 % (42.8-82.8); PLATELET COUNT 240 K/MM3 (134-434); RBC 4.93 M/mm3 (3.60-5.2); RDW 13.5 % (11.6-15.6); WHITE BLOOD COUNT 6.9 K/mm3 (4.0-10.0)
--- NOTE | 2020-06-16 20:01 | PDOC ---
History of Present Illness - General Chief Complaint: Pain Stated Complaint: ABD PAIN/VOMITING Time Seen by Provider: 06/16/20 19:07 - History of Present Illness Initial Comments: Lana Damon is a 25 y/o female with PMH significant for gastric ulcers presenting today with 1 week of abdominal pain, nausea and vomiting. Reports that she has been vomiting "hundreds" of times per day. Reports blood in the vomit. States that she has not eaten or drank anything for days because of the vomiting. She was recently seen here two weeks ago for similar symptoms and admitted for pain control. Reports diffuse abdominal pain and right flank pain. States that nausea is relieved with pressure on right CVA. No dysuria/diarrhea. Reports that she smokes marijuana 2-3x a day to help with her abdominal pain. No chest pain/shortness of breath. Reports lightheadedness. No leg swelling. No back pain. No fever/chills. Past History - Medical History Allergies/Adverse Reactions: Allergies Allergy/AdvReac Type Severity Reaction Status Date / Time naproxen Allergy Verified 06/16/20 19:11 Home Medications: Ambulatory Orders Famotidine [Pepcid] 20 mg PO BID #30 tablet 06/05/20 Ondansetron HCl [Zofran] 4 mg PO Q8H PRN #10 tablet 06/05/20 COPD: No GI Disorders: Yes (ulcer) - Psycho-Social/Smoking History Smoking History: Current every day smoker Information on smoking cessation initiated: No - Substance Abuse Hx (Audit-C & DAST Scrn) How often the patient has a drink containing alcohol: Never Score: In Men: 4 or > Positive; In Women: 3 or > Positive: 0 Screen Result (Pos requires Nsg. Audit-10AR): Negative In the last yr the pt used illegal drug/Rx for NonMed reason: Yes Score: Yes response is considered Positive: 1 Screen Result (Positive result requires Nsg. DAST-10): Positive Review of Systems - Review of Systems Comments:: GENERAL/CONSTITUTIONAL: No fever or chills. No weakness._ HEAD, EYES, EARS, NOSE AND THROAT: No change in vision. No change in hearing. No sore throat._ CARDIOVASCULAR: No chest pain or shortness of breath_ RESPIRATORY: Denies cough, hemoptysis_ GASTROINTESTINAL: Reports abdominal pain. Reports nausea and vomiting. No diarrhea or constipation._ GENITOURINARY: No dysuria, frequency, or change in urination._ MUSCULOSKELETAL: No joint or muscle swelling or pain. No neck or back pain._ SKIN: No rash_ NEUROLOGIC: Reports lightheadedness. No headache, vertigo, loss of consciousness, or change in strength/sensation._ ENDOCRINE: No increased thirst. No abnormal weight change_ HEMATOLOGIC/LYMPHATIC: No anemia, easy bleeding, or history of blood clots._ ALLERGIC/IMMUNOLOGIC: No hives or skin allergy._ *Physical Exam - Vital Signs Last Vital Signs Temp Pulse Resp BP Pulse Ox 98 F 105 H 18 107/77 99 06/16/20 19:07 06/16/20 19:07 06/16/20 19:07 06/16/20 19:07 06/16/20 19:07 - Physical Exam GENERAL: Awake, alert, and oriented to person/place/time, in no acute distress_ HEAD: No signs of trauma, normocephalic, atraumatic _ EYES: PERRLA, EOMI, sclera anicteric, conjunctiva clear_ ENT: Hearing grossly normal, nares patent, oropharynx clear without exudates. No uvular deviation. Moist mucosa_ NECK: Normal ROM, supple, no lymphadenopathy, JVD, or masses_ LUNGS: No distress, speaks in full sentences, clear to auscultation bilaterally _ HEART: Regular rate and rhythm, normal S1 and S2, no murmurs appreciated, lianna pheral pulses normal and equal bilaterally._ ABDOMEN: Soft, minimal TTP diffusely, normoactive bowel sounds. No guarding, no rebound. No masses_ BACK: No CVA TTP bilaterally. EXTREMITIES: Normal inspection, Normal range of motion, no edema. No clubbing or cyanosis_ NEUROLOGICAL: Cranial nerves II through XII grossly intact. Normal speech, normal gait, no focal sensorimotor deficits _ SKIN: Warm, Dry, normal turgor, no rashes or lesions noted_ ED Treatment Course - LABORATORY CBC & Chemistry Diagram: 06/18/20 04:50 06/18/20 04:50 - ADDITIONAL ORDERS Additional order review: 06/16/20 19:40 RBC 4.93 MCV 92.5 MCHC 34.2 RDW 13.5 MPV 9.2 Neutrophils % 70.1 Lymphocytes % 19.7 D Monocytes % 9.2 Eosinophils % 0.2 Basophils % 0.8 - Medications Given in the ED: ED Medications Discontinued Medications Generic Name Dose Route Start Last Admin Trade Name Itz PRN Reason Stop Dose Admin Acetaminophen 1,000 mg 06/16/20 19:11 06/16/20 19:59 Ofirmev Injection - IVPB 06/16/20 19:12 1,000 mg ONCE ONE Administration Diphenhydramine HCl 12.5 mg 06/16/20 19:11 06/16/20 19:59 Benadryl Injection - IVPB 06/16/20 19:12 Not Given ONCE ONE Metoclopramide HCl 10 mg 06/16/20 19:11 06/16/20 19:59 Reglan Injection - IVPB 06/16/20 19:12 10 mg ONCE ONE Administration Ondansetron HCl 4 mg 06/16/20 19:11 06/16/20 19:59 Zofran Injection IVPUSH 06/16/20 19:12 4 mg ONCE ONE Administration Medical Decision Making - Medical Decision Making 25F presenting today with abdominal pain, nausea, and vomiting for the past week. -labs -ekg -reglan -fluids -benadryl -lipase -urine 06/16/20 20:35 EKG 74 bpm, sinus rhythm, no axis deviation, WI 136, QTc 437, no ST elevation/depression. 06/16/20 20:39 Will obtain CXR to r/o perforation. Pt reassessed after reglan/fluids. Reports continued burning abdominal pain. Will give GI cocktail. Labs reviewed. Laboratory Last Values WBC 6.9 K/mm3 (4.0-10.0) 06/16/20 19:40 RBC 4.93 M/mm3 (3.60-5.2) 06/16/20 19:40 Hgb 15.6 GM/dL (10.7-15.3) H 06/16/20 19:40 Hct 45.7 % (32.4-45.2) H D 06/16/20 19:40 MCV 92.5 fl (80-96) 06/16/20 19:40 MCH 31.6 pg (25.7-33.7) 06/16/20 19:40 MCHC 34.2 g/dl (32.0-36.0) 06/16/20 19:40 RDW 13.5 % (11.6-15.6) 06/16/20 19:40 Plt Count 240 K/MM3 (134-434) 06/16/20 19:40 MPV 9.2 fl (7.5-11.1) 06/16/20 19:40 Absolute Neuts (auto) 4.9 K/mm3 (1.5-8.0) 06/16/20 19:40 Neutrophils % 70.1 % (42.8-82.8) 06/16/20 19:40 Lymphocytes % 19.7 % (8-40) D 06/16/20 19:40 Monocytes % 9.2 % (3.8-10.2) 06/16/20 19:40 Eosinophils % 0.2 % (0-4.5) 06/16/20 19:40 Basophils % 0.8 % (0-2.0) 06/16/20 19:40 Nucleated RBC % 0 % (0-0) 06/16/20 19:40 Sodium 138 mmol/L (136-145) 06/16/20 19:40 Potassium 3.4 mmol/L (3.5-5.1) L 06/16/20 19:40 Chloride 99 mmol/L (98-107) 06/16/20 19:40 Carbon Dioxide 22 mmol/L (21-32) 06/16/20 19:40 Anion Gap 17 MMOL/L (8-16) H 06/16/20 19:40 BUN 11.5 mg/dL (7-18) 06/16/20 19:40 Creatinine 0.9 mg/dL (0.55-1.3) 06/16/20 19:40 Est GFR (CKD-EPI)AfAm 101.56 06/16/20 19:40 Est GFR (CKD-EPI)NonAf 87.63 06/16/20 19:40 Random Glucose 100 mg/dL (74-106) 06/16/20 19:40 Calcium 10.0 mg/dL (8.5-10.1) 06/16/20 19:40 Total Bilirubin 0.7 mg/dL (0.2-1) 06/16/20 19:40 AST 15 U/L (15-37) 06/16/20 19:40 ALT 22 U/L (13-61) 06/16/20 19:40 Alkaline Phosphatase 52 U/L (45-117) 06/16/20 19:40 Total Protein 8.8 g/dl (6.4-8.2) H 06/16/20 19:40 Albumin 4.9 g/dl (3.4-5.0) 06/16/20 19:40 Lipase 45 U/L (73-393) L 06/16/20 19:40 Urine Color Yellow 06/16/20 21:52 Urine Appearance Clear 06/16/20 21:52 Urine pH 5.5 (5.0-8.0) 06/16/20 21:52 Ur Specific [place] 1.038 (1.010-1.035) H 06/16/20 21:52 Urine Protein 1+ (NEGATIVE) H 06/16/20 21:52 Urine Glucose (UA) Negative (NEGATIVE) 06/16/20 21:52 Urine Ketones 4+ (NEGATIVE) H 06/16/20 21:52 Urine Blood Negative (NEGATIVE) 06/16/20 21:52 Urine Nitrite Negative (NEGATIVE) 06/16/20 21:52 Urine Bilirubin Negative (NEGATIVE) 06/16/20 21:52 Urine Urobilinogen 1.0 mg/dL (0.2-1.0) 06/16/20 21:52 Ur Leukocyte Esterase Negative (NEGATIVE) 06/16/20 21:52 Urine WBC (Auto) 8 /uL (0-25.8) 06/16/20 21:52 Urine RBC (Auto) 3 /uL (0-23.9) 06/16/20 21:52 Urine Casts (Auto) 5 /uL (0-3.1) 06/16/20 21:52 U Epithel Cells (Auto) >36 /uL (0-25.1) 06/16/20 21:52 Urine Bacteria (Auto) 551 /uL (0-1359) 06/16/20 21:52 Urine HCG, Qual Negative 06/16/20 21:52 06/16/20 23:30 CXR negative for acute intrathoracic pathology. No obvious free air seen. 06/16/20 23:31 EKG #2 shows 71 bpm, sinus rhythm, no axis deviation, WI 150, QTc 449, no ST elevation/depression. Pt reassessed after GI cocktail. Reports continued abdominal pain and vomiting. Will give IV haldol. 06/17/20 00:17 Pt reassessed after haldol. Reports that the pain has not resolved and she does not think that she can go home. Will admit for intractable abdominal pain and vomiting. 06/17/20 00:33 D/w [facility] [place] who accepts the patient for admission. Discharge - Discharge Information Problems reviewed: Yes Clinical Impression/Diagnosis: Intractable vomiting with nausea - Follow up/Referral - Patient Discharge Instructions - Post Discharge Activity
[2020-06-16] MEDS ORDERED: FAMOTIDINE 20 MG/50 ML IVPB 20 MG/50 ML MG IVPB ONE (20:38)
[2020-06-16] MEDS ORDERED: MAG HYDROX/AL HYDROX/SIMETH -MYLANTA- ORAL SUSPENSION PO ONE ×2 (20:38→22:29)
[2020-06-16] MEDS ORDERED: LIDOCAINE VISCOUS 2% ORAL/TOP 20 ML UNIT-DOSE CUP MM ONE (20:38)
[2020-06-16 20:55] LABS: ALBUMIN 4.9 g/dl (3.4-5.0); BILIRUBIN,TOTAL 0.7 mg/dL (0.2-1); BLOOD UREA NITROGEN 11.5 mg/dL (7-18); CREATININE 0.9 mg/dL (0.55-1.3); POTASSIUM 3.4 mmol/L (3.5-5.1); TOT PROT 8.8 g/dl (6.4-8.2)
[2020-06-16] MEDS ORDERED: LIDOCAINE VISCOUS 2% ORAL/TOP 20 ML UNIT-DOSE CUP ONE (22:03)
[2020-06-16] MEDS ORDERED: FAMOTIDINE 20 MG TABLET ONE (22:04)
[2020-06-16] MEDS ORDERED: MAG HYDROX/AL HYDROX/SIMETH 30 ML UNIT-DOSE CUP ONE ×2 (22:04→23:32)
[2020-06-16 22:06] LABS: EPI CELLS >36 /uL (0-25.1); HYALINE CASTS 5 /uL (0-3.1); PH,URINE 5.5 (5.0-8.0); URINE APPEARANCE CLEAR; URINE BACTERIA 551 /uL (0-1359); URINE BILIRUBIN NEGATIVE (NEGATIVE); URINE COLOR YELLOW; URINE GLUCOSE (UA) NEGATIVE (NEGATIVE); URINE KETONE 4+ (NEGATIVE); URINE LEUK ESTERASE NEGATIVE (NEGATIVE); URINE NITRITE NEGATIVE (NEGATIVE); URINE PROTEIN 1+ (NEGATIVE); URINE RBC 3 /uL (0-23.9); URINE WBC 8 /uL (0-25.8)
[2020-06-16] MEDS ORDERED: SODIUM CHLORIDE 0.9% 500 ML INFUS.BAG IV ONE (22:29)
[2020-06-16] MEDS ORDERED: HALOPERIDOL LACTATE 5 MG/ML IV ONE (23:34)
[2020-06-16] MEDS ORDERED: HALOPERIDOL LACTATE 5 MG/ML ONE (23:40)
--- NOTE | 2020-06-17 00:28 | PDOC ---
Attending Attestation - Resident Resident Name: Marcelo Beckman - HPI HPI: 06/17/20 00:15 Pt presents to the ED complaining of burning epigastric pain, nausea and profuse watery nausea and vomiting. History of cyclic vomiting that has required multiple doses of antiemetics in the past. - Physicial Exam PE: 06/17/20 00:28 Agree with resident exam. Patient is alert, appears uncomfortable. + actively vomiting clear saliva. Abdomen soft, non tender, non distended, no guarding or rebound. - Medical Decision Making 06/17/20 00:31 Pt presents to the ED complaining of persistent nausea and vomiting. History of cyclic vomiting syndrome, symptoms are similar today. Labs are within normal limits. Patient is persistently vomiting despite multiple antiemetics. Abdominal imaging (CT and US) obtained on last visit and were negative. Will not repeat on this visit since her symptoms are extremely similar. Will admit for intractable vomiting. 06/17/20 00:32 06/17/20 00:33 Discharge - Discharge Information Problems reviewed: Yes Clinical Impression/Diagnosis: Intractable vomiting with nausea - Follow up/Referral - Patient Discharge Instructions - Post Discharge Activity
[2020-06-17] MEDS ORDERED: KCL 10 MEQ IVPB 10 MEQ/100 ML INFUS.BAG IVPB SCH (00:45)
--- NOTE | 2020-06-17 00:45 | HP ---
CHIEF COMPLAINT: Abdominal Pain, Nausea and Vomiting PCP: None HISTORY OF PRESENT ILLNESS: This is a 25 y/o female with a PMHx of PUD, Gastritis, Marijuana Dependency, recent admission 06/05 for Gastritis. Who presents to the ED for abdominal pain with episodes of nausea and NBNB emesis x 1 week. Patient reports not being able to tolerate anything PO since last admission. She has not followed up with GI or a PCP due to lack of insurance. Patient reports smoking Marijuana daily for pain relief. Patient denies eating spicy, greasy or acidic foods. Patient denies fever, chills, cough, SOB, dizziness, WILSON, CP, palpitations, diarrhea, constipation, vaginal discharge, dysuria. Patient denies recent sick contacts or travel. ER course was notable for: (1) K 3.4 (2) UA- +4 Ketones, +1 Protein, 551 Bacteria (3) Recent Travel: None PAST MEDICAL HISTORY: see HPI PAST SURGICAL HISTORY: Denies Social History: Smoking: Denies Alcohol: Denies Drugs: Marijuana use daily Allergies naproxen Allergy (Verified 06/16/20 19:11) HOME MEDICATIONS: Home Medications Medication Instructions Recorded Famotidine [Pepcid] 20 mg PO BID #30 tablet 06/05/20 Ondansetron HCl [Zofran] 4 mg PO Q8H PRN #10 tablet 06/05/20 REVIEW OF SYSTEMS CONSTITUTIONAL: loss of appetite Absent: fever, chills, diaphoresis, generalized weakness, malaise, weight change HEENT: Absent: rhinorrhea, nasal congestion, throat pain, throat swelling, difficulty swallowing, mouth swelling, ear pain, eye pain, visual changes CARDIOVASCULAR: Absent: chest pain, syncope, palpitations, irregular heart rate, lightheadedness, peripheral edema RESPIRATORY: Absent: cough, shortness of breath, dyspnea with exertion, orthopnea, wheezing, stridor, hemoptysis GASTROINTESTINAL:abdominal pain, nausea, vomiting Absent: abdominal distension, diarrhea, constipation, melena, hematochezia GENITOURINARY: Absent: dysuria, frequency, urgency, hesitancy, hematuria, flank pain, genital pain MUSCULOSKELETAL: Absent: myalgia, arthralgia, joint swelling, back pain, neck pain SKIN: Absent: rash, itching, pallor HEMATOLOGIC/IMMUNOLOGIC: Absent: easy bleeding, easy bruising, lymphadenopathy, frequent infections ENDOCRINE: Absent: unexplained weight gain, unexplained weight loss, heat intolerance, cold intolerance NEUROLOGIC: Absent: headache, focal weakness or paresthesias, dizziness, unsteady gait, seizure, mental status changes, bladder or bowel incontinence PSYCHIATRIC: Absent: anxiety, depression, suicidal or homicidal ideation, hallucinations. PHYSICAL EXAMINATION Vital Signs - 24 hr 06/16/20 06/16/20 19:07 22:08 Temperature 98 F Pulse Rate 105 H Pulse Rate [ 77 Apical] Respiratory 18 20 Rate Blood Pressure 107/77 Blood Pressure 105/73 [Left Arm] O2 Sat by Pulse 99 100 Oximetry (%) GENERAL: Awake, alert, and fully oriented, in moderate distress. HEAD: Normal with no signs of trauma. EYES: Pupils equal, round and reactive to light, extraocular movements intact, sclera anicteric, conjunctiva clear. No lid lag. EARS, NOSE, THROAT: Ears normal, nares patent, oropharynx clear without exudates. Dry mucous membranes. NECK: Normal range of motion, supple without lymphadenopathy, JVD, or masses. LUNGS: Breath sounds equal, clear to auscultation bilaterally. No wheezes, and no crackles. No accessory muscle use. HEART: Regular rate and rhythm, normal S1 and S2 without murmur, rub or gallop. ABDOMEN:generalized tenderness,hyperactive bowel sounds, soft, not distended, no guarding, no rebound, no masses. No hepatomegaly or splenomegaly. MUSCULOSKELETAL: Bilateral CVA tenderness. Normal range of motion at all joints. No bony deformities or tenderness. UPPER EXTREMITIES: 2+ pulses, warm, well-perfused. No cyanosis. No clubbing. No peripheral edema. LOWER EXTREMITIES: 2+ pulses, warm, well-perfused. No calf tenderness. No peripheral edema. NEUROLOGICAL: Cranial nerves II-XII intact. Normal speech. Normal gait. PSYCHIATRIC: Cooperative. Good eye contact. Appropriate mood and affect. SKIN: Warm, dry, normal turgor, no rashes or lesions noted, normal capillary refill. Laboratory Results - last 24 hr 06/16/20 06/16/20 06/16/20 19:40 19:40 21:52 WBC 6.9 RBC 4.93 Hgb 15.6 H Hct 45.7 H D MCV 92.5 MCH 31.6 MCHC 34.2 RDW 13.5 Plt Count 240 MPV 9.2 Absolute Neuts (auto) 4.9 Neutrophils % 70.1 Lymphocytes % 19.7 D Monocytes % 9.2 Eosinophils % 0.2 Basophils % 0.8 Nucleated RBC % 0 Sodium 138 Potassium 3.4 L Chloride 99 Carbon Dioxide 22 Anion Gap 17 H BUN 11.5 Creatinine 0.9 Est GFR (CKD-EPI)AfAm 101.56 Est GFR (CKD-EPI)NonAf 87.63 Random Glucose 100 Calcium 10.0 Total Bilirubin 0.7 AST 15 ALT 22 Alkaline Phosphatase 52 Total Protein 8.8 H Albumin 4.9 Lipase 45 L Urine Color Yellow Urine Appearance Clear Urine pH 5.5 Ur Specific [place] 1.038 H Urine Protein 1+ H Urine Glucose (UA) Negative Urine Ketones 4+ H Urine Blood Negative Urine Nitrite Negative Urine Bilirubin Negative Urine Urobilinogen 1.0 Ur Leukocyte Esterase Negative Urine WBC (Auto) 8 Urine RBC (Auto) 3 Urine Casts (Auto) 5 U Epithel Cells (Auto) >36 Urine Bacteria (Auto) 551 Urine HCG, Qual 06/16/20 21:52 WBC RBC Hgb Hct MCV MCH MCHC RDW Plt Count MPV Absolute Neuts (auto) Neutrophils % Lymphocytes % Monocytes % Eosinophils % Basophils % Nucleated RBC % Sodium Potassium Chloride Carbon Dioxide Anion Gap BUN Creatinine Est GFR (CKD-EPI)AfAm Est GFR (CKD-EPI)NonAf Random Glucose Calcium Total Bilirubin AST ALT Alkaline Phosphatase Total Protein Albumin Lipase Urine Color Urine Appearance Urine pH Ur Specific [place] Urine Protein Urine Glucose (UA) Urine Ketones Urine Blood Urine Nitrite Urine Bilirubin Urine Urobilinogen Ur Leukocyte Esterase Urine WBC (Auto) Urine RBC (Auto) Urine Casts (Auto) U Epithel Cells (Auto) Urine Bacteria (Auto) Urine HCG, Qual Negative ASSESSMENT/PLAN: This is a 25 y/o female with a PMhx of PUD, Gastritis, Marijuana Dependency. Admitted for Intractable Abdominal Pain, Vomiting, Hypokalemia for further evaluation of their emergent condition. Plan: See Problem List FEN D50.45%NS@125ml/hr Repleted K with K- rider, monitor lytes NPO DVT ppx OOB SCDs Dispo: Requires Inpatient Care Family Medical History Family Hx Cancer: Grandmother (maternal) (Breast, Maternal Aunt- Diabetes) Other Family History: Uncle- Ulcer Problem List - Problem (1) Intractable abdominal pain Assessment/Plan: Likely due to Gastritis vs Cyclic Vomiting Syndrome Abdominal US 06/05- normal abdominal US CTAP- no acute inflammatory changes, no signs of bowel obstruction or hernia Ofirmev prn IVF Monitor CBC, CMP Consider GI consult if condition worsens Code(s): R10.9 - UNSPECIFIED ABDOMINAL PAIN (2) Vomiting Assessment/Plan: Likely secondary to Cyclic Vomiting Syndrome due to Cannabis use Abdominal US 06/05 reviewed- no acute pathology CTAP 06/05 reviewed- no acute pathology Continue IVF Reglan prn NPO Monitor CMP EKG reviewed no ischemic changes Code(s): R11.10 - VOMITING, UNSPECIFIED Qualifiers: Vomiting type: unspecified Vomiting Intractability: unspecified (3) UTI (urinary tract infection) Assessment/Plan: Will treat secondary to b/l Flank Pain on exam UA showed +1 protein, +4 ketones, 8WBC, 551 bacteria Urine Culture-ordered Rocephin to treat empirically, adjust when urine culture resulted Monitor CBC, CMP Monitor vitals Code(s): N39.0 - URINARY TRACT INFECTION, SITE NOT SPECIFIED (4) Cannabis dependence Assessment/Plan: Counseled patient on Cannibus cessation, she is not amendable Risks and Benefits discussed Code(s): F12.20 - CANNABIS DEPENDENCE, UNCOMPLICATED (5) History of ulcer disease Assessment/Plan: Continue PPI Code(s): Z87.898 - PERSONAL HISTORY OF OTHER SPECIFIED CONDITIONS (6) Encounter for screening laboratory testing for COVID-19 virus Assessment/Plan: [employer] 0. low risk Covid PCR-pending Isolation Precautions Code(s): Z11.59 - ENCOUNTER FOR SCREENING FOR OTHER VIRAL DISEASES Visit type - Emergency Visit Emergency Visit: Yes ED Registration Date: 06/16/20 Care time: The patient presented to the Emergency Department on the above date and was hospitalized for further evaluation of their emergent condition. - New Patient This patient is new to me today: Yes Date on this admission: 06/17/20 - Critical Care Critical Care patient: No
[2020-06-17] MEDS ORDERED: KCL 10 MEQ IVPB 10 MEQ/100 ML INFUS.BAG IVPB ONE (01:00)
[2020-06-17] MEDS: DEXTROSE 5%-0.45% SALINE 1,000 ML IV SCH ×2 (01:05→09:14)
[2020-06-17] MEDS ORDERED: ONDANSETRON 4 MG/2 ML VIAL IVPUSH ONE ×2 (01:24→01:29)
[2020-06-17] MEDS ORDERED: CEFTRIAXONE 1 GM in DEXTROSE 5%-WATER - 50 ML IVPB ONE (02:12)
[2020-06-17] MEDS ORDERED: CEFTRIAXONE 1 GM/50 ML BAG ONE (02:21)
[2020-06-17] MEDS: ACETAMINOPHEN 1000 MG/100 ML VIAL (NON FORMULARY) IVPB PRN ×3 (03:30→18:45)
[2020-06-17 04:24] VITALS: BMI 19.3
[2020-06-17] MEDS: METOCLOPRAMIDE HCL INJECTION 10 MG/2 ML VIAL IVPUSH PRN ×3 (05:17→22:56)
[2020-06-17 08:26] LABS: BASO % 0.8 % (0-2.0); EOS % 1.2 % (0-4.5); HEMATOCRIT 35.9 % (32.4-45.2); HEMOGLOBIN 12.1 GM/dL (10.7-15.3); LYMPH % 30.5 % (8-40); MCH 30.8 pg (25.7-33.7); MCHC 33.8 g/dl (32.0-36.0); MONO % 14.6 % (3.8-10.2); NEUT % 52.9 % (42.8-82.8); PLATELET COUNT 188 K/MM3 (134-434); RBC 3.94 M/mm3 (3.60-5.2); RDW 13.5 % (11.6-15.6); WHITE BLOOD COUNT 5.7 K/mm3 (4.0-10.0)
[2020-06-17 08:54] LABS: ALBUMIN 3.6 g/dl (3.4-5.0); BILIRUBIN,TOTAL 0.7 mg/dL (0.2-1); BLOOD UREA NITROGEN 8.6 mg/dL (7-18); CALCIUM 8.1 mg/dL (8.5-10.1); CREATININE 0.6 mg/dL (0.55-1.3); TOT PROT 6.7 g/dl (6.4-8.2)
[2020-06-17 09:01] LABS: COCAINE, UR NEGATIVE ng/ml (CUTOFF=300); METHADONE, UR NEGATIVE ng/ml (CUTOFF=300); OPIATES, URI NEGATIVE ng/ml (CUTOFF=300); PHENCYCLIDINE,URINE NEGATIVE ng/ml (CUTOFF=25); URINE AMPHETAMINES NEGATIVE ng/ml (CUTOFF=500); URINE BARBITURATES NEGATIVE ng/ml (CUTOFF=200); URINE BENZODIAZEPINES NEGATIVE ng/ml (CUTOFF=200)
[2020-06-17] MEDS: FAMOTIDINE 20 MG/50 ML IVPB 20 MG/50 ML MG IVPB SCH ×2 (09:14→21:52)
--- NOTE | 2020-06-17 13:33 | PN ---
Physical Exam: SUBJECTIVE: Patient seen and examined at bedside, stated her nausea is better and no recent episodes of vomiting OBJECTIVE: Vital Signs Period Temp Pulse Resp BP Sys/Shields Pulse Ox Last 24 Hr 98 F-98.7 F 66-105 16-20 85-122/49-77 97-100 GENERAL: The patient is awake, alert, and fully oriented, in no acute distress. HEAD: Normal with no signs of trauma. EYES: PERRL, extraocular movements intact, sclera anicteric, conjunctiva clear. No ptosis. ENT: Ears normal, nares patent, oropharynx clear without exudates, moist mucous membranes. NECK: Trachea midline, full range of motion, supple. LUNGS: Breath sounds equal, clear to auscultation bilaterally, no wheezes, no crackles, no accessory muscle use. HEART: Regular rate and rhythm, S1, S2 without murmur, rub or gallop. ABDOMEN: Soft, nontender, nondistended, normoactive bowel sounds, no guarding, no rebound, no hepatosplenomegaly, no masses. EXTREMITIES: 2+ pulses, warm, well-perfused, no edema. NEUROLOGICAL: Cranial nerves II through XII grossly intact. Normal speech, gait not observed. slightly tender rt lower chestwall. PSYCH: Normal mood, normal affect. SKIN: Warm, dry, normal turgor, no rashes or lesions noted Laboratory Results - last 24 hr 06/16/20 06/16/20 06/16/20 19:40 19:40 21:52 WBC 6.9 RBC 4.93 Hgb 15.6 H Hct 45.7 H D MCV 92.5 MCH 31.6 MCHC 34.2 RDW 13.5 Plt Count 240 MPV 9.2 Absolute Neuts (auto) 4.9 Neutrophils % 70.1 Lymphocytes % 19.7 D Monocytes % 9.2 Eosinophils % 0.2 Basophils % 0.8 Nucleated RBC % 0 Sodium 138 Potassium 3.4 L Chloride 99 Carbon Dioxide 22 Anion Gap 17 H BUN 11.5 Creatinine 0.9 Est GFR (CKD-EPI)AfAm 101.56 Est GFR (CKD-EPI)NonAf 87.63 Random Glucose 100 Calcium 10.0 Total Bilirubin 0.7 AST 15 ALT 22 Alkaline Phosphatase 52 Total Protein 8.8 H Albumin 4.9 Lipase 45 L Urine Color Yellow Urine Appearance Clear Urine pH 5.5 Ur Specific [place] 1.038 H Urine Protein 1+ H Urine Glucose (UA) Negative Urine Ketones 4+ H Urine Blood Negative Urine Nitrite Negative Urine Bilirubin Negative Urine Urobilinogen 1.0 Ur Leukocyte Esterase Negative Urine WBC (Auto) 8 Urine RBC (Auto) 3 Urine Casts (Auto) 5 U Epithel Cells (Auto) >36 Urine Bacteria (Auto) 551 Urine HCG, Qual Opiates Screen Methadone Screen Barbiturate Screen Phencyclidine Screen Ur Amphetamines Screen MDMA (Ecstasy) Screen Benzodiazepines Screen Cocaine Screen U Marijuana (THC) Screen 06/16/20 06/17/20 06/17/20 21:52 07:12 07:12 WBC 5.7 RBC 3.94 Hgb 12.1 Hct 35.9 D MCV 91.0 MCH 30.8 MCHC 33.8 RDW 13.5 Plt Count 188 D MPV 9.0 Absolute Neuts (auto) 3.0 Neutrophils % 52.9 D Lymphocytes % 30.5 D Monocytes % 14.6 H Eosinophils % 1.2 D Basophils % 0.8 Nucleated RBC % 0 Sodium 137 Potassium 3.0 L Chloride 102 Carbon Dioxide 24 Anion Gap 11 BUN 8.6 Creatinine 0.6 Est GFR (CKD-EPI)AfAm 144.78 Est GFR (CKD-EPI)NonAf 124.92 Random Glucose 112 H Calcium 8.1 L Total Bilirubin 0.7 AST 10 L ALT 15 Alkaline Phosphatase 40 L Total Protein 6.7 Albumin 3.6 Lipase Urine Color Urine Appearance Urine pH Ur Specific [place] Urine Protein Urine Glucose (UA) Urine Ketones Urine Blood Urine Nitrite Urine Bilirubin Urine Urobilinogen Ur Leukocyte Esterase Urine WBC (Auto) Urine RBC (Auto) Urine Casts (Auto) U Epithel Cells (Auto) Urine Bacteria (Auto) Urine HCG, Qual Negative Opiates Screen Methadone Screen Barbiturate Screen Phencyclidine Screen Ur Amphetamines Screen MDMA (Ecstasy) Screen Benzodiazepines Screen Cocaine Screen U Marijuana (THC) Screen 06/17/20 07:30 WBC RBC Hgb Hct MCV MCH MCHC RDW Plt Count MPV Absolute Neuts (auto) Neutrophils % Lymphocytes % Monocytes % Eosinophils % Basophils % Nucleated RBC % Sodium Potassium Chloride Carbon Dioxide Anion Gap BUN Creatinine Est GFR (CKD-EPI)AfAm Est GFR (CKD-EPI)NonAf Random Glucose Calcium Total Bilirubin AST ALT Alkaline Phosphatase Total Protein Albumin Lipase Urine Color Urine Appearance Urine pH Ur Specific [place] Urine Protein Urine Glucose (UA) Urine Ketones Urine Blood Urine Nitrite Urine Bilirubin Urine Urobilinogen Ur Leukocyte Esterase Urine WBC (Auto) Urine RBC (Auto) Urine Casts (Auto) U Epithel Cells (Auto) Urine Bacteria (Auto) Urine HCG, Qual Opiates Screen Negative Methadone Screen Negative Barbiturate Screen Negative Phencyclidine Screen Negative Ur Amphetamines Screen Negative MDMA (Ecstasy) Screen Negative Benzodiazepines Screen Negative Cocaine Screen Negative U Marijuana (THC) Screen Positive A* Active Medications Generic Name Dose Route Start Last Admin Trade Name Freq PRN Reason Stop Dose Admin Acetaminophen 1,000 mg 06/17/20 01:00 06/17/20 10:40 Ofirmev Injection - IVPB 1,000 mg Q6H PRN Administration PAIN LEVEL 6-10 Dextrose/Sodium Chloride 1,000 mls @ 125 mls/hr 06/17/20 00:30 06/17/20 09:14 D5-1/2ns - IV 125 mls/hr ASDIR KWAME Administration Famotidine/Sodium Chloride 20 mg in 50 mls @ 100 mls/hr 06/17/20 10:00 06/17/20 09:14 Pepcid 20 Mg Premixed Ivpb - IVPB 100 mls/hr BID KWAME Administration Ceftriaxone Sodium 1 gm/ 50 mls @ 100 mls/hr 06/18/20 10:00 Dextrose IVPB DAILY KWAME Protocol Metoclopramide HCl 10 mg 06/17/20 04:00 06/17/20 13:17 Reglan Injection - IVPUSH 10 mg Q8H PRN Administration NAUSEA AND/OR VOMITING ASSESSMENT/PLAN: 25 y/o female with a PMhx of PUD, Gastritis, Marijuana Dependency. Admitted for Intractable Abdominal Pain, Vomiting # Intractable vomiting cyclic vomiting vs marijuana hyperemesis syndrome pt uses marijuana, last use was yesterday discuss risks and benefits of behavior c/w antiemetics PRN, IVF, PPI CXR reviewed will keep NPO today, may advance diet in AM replace electrolytes as needed encourage to ambulate DVT prophylaxis with SCD Visit type - Emergency Visit Emergency Visit: Yes ED Registration Date: 06/17/20 Care time: The patient presented to the Emergency Department on the above date and was hospitalized for further evaluation of their emergent condition. - New Patient This patient is new to me today: Yes Date on this admission: 07/25/20 - Critical Care Critical Care patient: No - Discharge Referral Referred to [facility] Med P.C.: No
[2020-06-17] MEDS ORDERED: LIDOCAINE 5% TOPICAL PATCH TP ONE (13:34)
[2020-06-17] MEDS ORDERED: LIDOCAINE PATCH REMOVAL MC SCH (22:00)
[2020-06-18] MEDS: ACETAMINOPHEN 1000 MG/100 ML VIAL (NON FORMULARY) IVPB PRN ×3 (00:38→19:59)
[2020-06-18] MEDS: DEXTROSE 5%-0.45% SALINE 1,000 ML IV SCH ×2 (00:41→13:41)
[2020-06-18] MEDS ORDERED: MORPHINE SULFATE 2 MG/ML VIAL IVPUSH PRN (00:50)
[2020-06-18] MEDS: ONDANSETRON 4 MG/2 ML VIAL IVPUSH PRN ×4 (01:12→23:27)
[2020-06-18] MEDS ORDERED: POTASSIUM CHLORIDE TABS 20 MEQ TABLET.ER (FP) PO ONE (04:08)
[2020-06-18] MEDS ORDERED: traMADol HCL 50 MG TABLET PO ONE (04:16)
[2020-06-18] MEDS ORDERED: PANTOPRAZOLE SODIUM 40 MG VIAL IVPUSH ONE (04:34)
[2020-06-18] MEDS ORDERED: MORPHINE SULFATE 2 MG/ML VIAL IVPUSH ONE (04:35)
[2020-06-18 05:14] LABS: BASO % 2.6 % (0-2.0); EOS % 1.6 % (0-4.5); HEMATOCRIT 39.4 % (32.4-45.2); HEMOGLOBIN 13.3 GM/dL (10.7-15.3); LYMPH % 26.7 % (8-40); MCH 30.8 pg (25.7-33.7); MCHC 33.8 g/dl (32.0-36.0); MEAN CELL VOLUME 91.3 fl (80-96); MEAN PLT VOLUME 9.2 fl (7.5-11.1); MONO % 8.9 % (3.8-10.2); NEUT % 60.2 % (42.8-82.8); PLATELET COUNT 199 K/MM3 (134-434); RBC 4.31 M/mm3 (3.60-5.2); RDW 13.4 % (11.6-15.6); WHITE BLOOD COUNT 4.2 K/mm3 (4.0-10.0)
[2020-06-18] MEDS: KCL 10 MEQ IVPB 10 MEQ/100 ML INFUS.BAG IVPB SCH ×5 (05:20→13:08)
[2020-06-18 05:37] LABS: ALBUMIN 4.1 g/dl (3.4-5.0); BILIRUBIN,TOTAL 0.6 mg/dL (0.2-1); BLOOD UREA NITROGEN 5.8 mg/dL (7-18); CALCIUM 8.8 mg/dL (8.5-10.1); CREATININE 0.7 mg/dL (0.55-1.3); POTASSIUM 3.3 mmol/L (3.5-5.1); TOT PROT 7.2 g/dl (6.4-8.2)
[2020-06-18] MEDS: METOCLOPRAMIDE HCL INJECTION 10 MG/2 ML VIAL IVPUSH PRN ×2 (06:51→18:21)
[2020-06-18 09:16] LABS: MAGNESIUM 2.3 mg/dL (1.8-2.4)
[2020-06-18] MEDS ORDERED: CEFTRIAXONE 1 GM in DEXTROSE 5%-WATER - 50 ML IVPB SCH (10:00)
[2020-06-18] MEDS: FAMOTIDINE 20 MG/50 ML IVPB 20 MG/50 ML MG IVPB SCH (10:15)
--- NOTE | 2020-06-18 12:04 | CON.GI ---
Consult Consult Specialty:: Gastroenterology ( covering the [facility] GI service) Referred by:: Dr Francisco Muller Reason for Consultation:: Abdominal pain - History of Present Illness Chief Complaint: Epigastric pain, nausea and vomiting History of Present Illness: 25F presents with c/o epigastric burning pain, nausea, vomiting and unable to keep any substantial nutrition down. She reports that she has chronic GI problems that include variable food intolerances, postprandial vomiting and constipation. She tells me that she was found to have a duodenal ulcer at EGD at [facility] 5 years ago. She last had an EGD there in August when only gastritis was found. She has noted blood in her emesis and reports several episodes of black loose BMs. She takes no medications and does not have medical followup as she has no medical insurance. She has had multiple ER visits for this pain but has never had to be transfused. She denies taking NSAIDs. She smokes marijuana daily as this alleviates both her pain and her nausea and vomiting - History Source History Provided By: Patient Limitations to Obtaining History: No Limitations - Past Medical History Gastrointestinal: Yes: Constipation, Peptic Ulcer Disease - Past Surgical History Past Surgical History: Yes: None, Upper Endoscopy - Alcohol/Substance Use Hx Alcohol Use: Yes (rare) History of Substance Use: reports: Marijuana (smokes daily) - Smoking History Smoking history: Never smoked Have you smoked in the past 12 months: No - Social History Usual Living Arrangement: Alone ADL: Independent 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 Loss, Weakness Eyes: reports: No Symptoms HENT: reports: No Symptoms Neck: reports: No Symptoms Cardiovascular: reports: No Symptoms Respiratory: reports: No Symptoms Gastrointestinal: reports: Abdominal Pain, Constipation, Melena, Nausea, Vomiting, Vomiting Blood Genitourinary: reports: No Symptoms Musculoskeletal: reports: Muscle Pain Physical Exam-GI Vital Signs: Vital Signs Temperature 98.5 F 06/18/20 03:00 Pulse Rate 72 06/18/20 03:00 Respiratory Rate 18 06/17/20 21:00 Blood Pressure 114/62 06/18/20 03:00 O2 Sat by Pulse Oximetry (%) 100 06/17/20 21:00 CBC, BMP 06/18/20 04:50 06/18/20 04:50 CBC,CMP WBC 4.2 K/mm3 (4.0-10.0) 06/18/20 04:50 RBC 4.31 M/mm3 (3.60-5.2) 06/18/20 04:50 Hgb 13.3 GM/dL (10.7-15.3) 06/18/20 04:50 Hct 39.4 % (32.4-45.2) 06/18/20 04:50 MCV 91.3 fl (80-96) 06/18/20 04:50 MCH 30.8 pg (25.7-33.7) 06/18/20 04:50 MCHC 33.8 g/dl (32.0-36.0) 06/18/20 04:50 RDW 13.4 % (11.6-15.6) 06/18/20 04:50 Plt Count 199 K/MM3 (134-434) 06/18/20 04:50 MPV 9.2 fl (7.5-11.1) 06/18/20 04:50 Absolute Neuts (auto) 2.5 K/mm3 (1.5-8.0) 06/18/20 04:50 Neutrophils % 60.2 % (42.8-82.8) 06/18/20 04:50 Lymphocytes % 26.7 % (8-40) 06/18/20 04:50 Monocytes % 8.9 % (3.8-10.2) 06/18/20 04:50 Eosinophils % 1.6 % (0-4.5) 06/18/20 04:50 Basophils % 2.6 % (0-2.0) H D 06/18/20 04:50 Nucleated RBC % 0 % (0-0) 06/18/20 04:50 Sodium 140 mmol/L (136-145) 06/18/20 04:50 Potassium 3.3 mmol/L (3.5-5.1) L 06/18/20 04:50 Chloride 107 mmol/L (98-107) 06/18/20 04:50 Carbon Dioxide 22 mmol/L (21-32) 06/18/20 04:50 Anion Gap 10 MMOL/L (8-16) 06/18/20 04:50 BUN 5.8 mg/dL (7-18) L 06/18/20 04:50 Creatinine 0.7 mg/dL (0.55-1.3) 06/18/20 04:50 Est GFR (CKD-EPI)AfAm 137.62 06/18/20 04:50 Est GFR (CKD-EPI)NonAf 118.74 06/18/20 04:50 POC Glucometer 102 UNITS (80-120) 06/18/20 04:30 Random Glucose 104 mg/dL (74-106) 06/18/20 04:50 Calcium 8.8 mg/dL (8.5-10.1) 06/18/20 04:50 Magnesium 2.3 mg/dL (1.8-2.4) 06/18/20 04:50 Total Bilirubin 0.6 mg/dL (0.2-1) 06/18/20 04:50 AST 13 U/L (15-37) L 06/18/20 04:50 ALT 18 U/L (13-61) 06/18/20 04:50 Alkaline Phosphatase 43 U/L (45-117) L 06/18/20 04:50 Total Protein 7.2 g/dl (6.4-8.2) 06/18/20 04:50 Albumin 4.1 g/dl (3.4-5.0) 06/18/20 04:50 Lipase 45 U/L (73-393) L 06/16/20 19:40 Current Medications Generic Name Dose Route Start Last Admin Trade Name Freq PRN Reason Stop Dose Admin Acetaminophen 1,000 mg 06/18/20 11:38 Ofirmev Injection - IVPB 06/19/20 11:38 Q6H PRN PAIN LEVEL 6-10 Dextrose/Sodium Chloride 1,000 mls @ 125 mls/hr 06/17/20 00:30 06/18/20 00:41 D5-1/2ns - IV 125 mls/hr ASDIR KWAME Administration Famotidine/Sodium Chloride 20 mg in 50 mls @ 100 mls/hr 06/17/20 10:00 06/18/20 10:15 Pepcid 20 Mg Premixed Ivpb - IVPB 100 mls/hr BID KWAME Administration Metoclopramide HCl 10 mg 06/17/20 04:00 06/18/20 06:51 Reglan Injection - IVPUSH 10 mg Q8H PRN Administration NAUSEA AND/OR VOMITING Ondansetron HCl 4 mg 06/18/20 00:51 06/18/20 04:49 Zofran Injection IVPUSH 4 mg Q4H PRN Administration NAUSEA AND/OR VOMITING Constitutional: Yes: Anxious Eyes: Yes: Conjunctiva Clear HENT: Yes: Atraumatic Neck: Yes: Supple Cardiovascular: Yes: Regular Rate and Rhythm Respiratory: Yes: CTA Bilaterally Gastrointestinal Inspection: Yes: WNL ...Auscultate: Yes: Normoactive Bowel Sounds ...Palpate: Yes: Soft, Other (mild right epigastric tendernes) ...Rectal Exam: Yes: Deferred (declined) Labs: CBC, BMP 06/18/20 04:50 06/18/20 04:50 Laboratory Tests 06/05/20 06/05/20 06/05/20 11:10 11:10 11:10 Hemoglobin A1c % 5.4 TSH 1.06 COVID-19 ([facility]) HIV Ag/Ab Combo Qual Negative 06/17/20 01:10 Hemoglobin A1c % TSH COVID-19 ([facility]Y) Not detected HIV Ag/Ab Combo Qual Imaging - Results Cat Scan: Report Reviewed ( Final Report CT ABDOMEN & PELVIS CT W/WO CONTR Show Printer-Friendly Version Patient Name: Lana Valadez : 1995 ID: [id number] Study Date: 05-Jun-2020 02:27 [place] Jo Name: LANA VALADEZ DEPARTMENT OF RADIOLOGY Phys: Fabio Lainze RES EM : 1995 Age: 25 Sex: F [facility] Acct: [id number] Loc: [address] Exam Date: 06/05/20 Status: [place] [address] Unit Number: [id number] EXAM#: [id number] PE/EXAM: RESULT: [id number] CT/ABDOMEN PELVIS CT W/WO CONTR CT abdomen and pelvis with and without intravenous contrast Comparison studies: None Clinical history: Persistent nausea and vomiting Axial imaging completed with coronal and sagittal reformations before and after injection of 94 cc Omnipaque 350, oral contrast is not administered. Lung windows demonstrate no suspicious findings in the lung bases with no signs of pneumonia, nodule or effusion. Bone windows demonstrate no suspicious osseous lesions. CT imaging completed with no free air or free fluid and no signs of bowel obstruction or hernia No CT evidence of appendicitis, colitis or diverticulitis No bowel wall thickening. Normal visualization of the liver and spleen including region of pancreas and adrenal glands. Normal gallbladder Noncontrast images demonstrate symmetric appearance of slightly dense medullary elements , this finding is nonspecific and can be seen in cases of dehydration and less likely the possibility of medullary sponge kidney or renal tubular ectasia . Corresponding sonogram was performed with normal appearance of the kidneys and therefore these findings are unlikely. Normal visualization of the urinary bladder including region of uterus and both ovaries. No hydronephrosis or stones in the kidneys, incidental findings in the left kidney of a renal cyst. Small subcentimeter cyst anterior portion of midpole left kidney. There are foci of subcutaneous emphysema in the right gluteal subcutaneous tissues possibly due to injection in the region with some localized soft tissue edema, correlate if there has been intramuscular injection in the region. No signs of abscess or fluid collection identified. No enlarged inguinal lymph nodes, small superficial subcentimeter short axis inguinal lymph nodes are seen. Impression: CT imaging completed with no free air or free fluid, no acute inflammatory changes, no signs of bowel obstruction or hernia. Reported By: Flip Babb MD 06/05/20 1315 Fabio Lainez RES EM Technologist: Flip Shrestha Transcribed Date/Time: 06/05/201314 Digital Marketing Officer: Flip Babb Printed Date/Time: By: Signed by: Flip Babb Signed on: 05-Jun-2020 13:16) Problem List - Problems (1) Chronic upper abdominal pain Code(s): R10.10 - UPPER ABDOMINAL PAIN, UNSPECIFIED; G89.29 - OTHER CHRONIC PAIN (2) Nausea and vomiting Code(s): R11.2 - NAUSEA WITH VOMITING, UNSPECIFIED (3) Hematemesis Code(s): K92.0 - HEMATEMESIS (4) History of ulcer disease Code(s): Z87.898 - PERSONAL HISTORY OF OTHER SPECIFIED CONDITIONS Assessment/Plan Impression: - Given the burning quality of her pain and previous peptic ulcer disease I have advised an EGD to exclude a recurrent ulcer, GERD and celiac disease. She had recent imaging of the biliary tract, liver and pancreas so I will not repeat it. Does not fit cyclical vomiting syndrome pattern as she has no periods of normality in between and no triggers. Plan: -- PPI drip -- Antacids prn -- Serum gastrin level, PBG, SPEP, RISSA, IBD and celiac panels - I have informed Lana of the potential for such complications as perforation and hemorrhage associated with an EGD and she has signed an informed consent. I have scheduled for tomorrow with Dr. Turpin or perhaps by me -- If unrevealing then she may need a gastric emptying study
--- NOTE | 2020-06-18 12:41 | PN ---
Physical Exam: SUBJECTIVE: Patient seen and examined, feeling tired from vomiting episodes overnight OBJECTIVE: Vital Signs Period Temp Pulse Resp BP Sys/Shields Pulse Ox Last 24 Hr 98.5 F-98.8 F 72-76 16-18 114-118/56-62 100-100 GENERAL: The patient is awake, alert, and fully oriented, in no acute distress. HEAD: Normal with no signs of trauma. EYES: PERRL, extraocular movements intact, sclera anicteric, conjunctiva clear. No ptosis. ENT: Ears normal, nares patent, oropharynx clear without exudates, moist mucous membranes. NECK: Trachea midline, full range of motion, supple. LUNGS: Breath sounds equal, clear to auscultation bilaterally, no wheezes, no crackles, no accessory muscle use. HEART: Regular rate and rhythm, S1, S2 without murmur, rub or gallop. ABDOMEN: Soft, nontender, nondistended, normoactive bowel sounds, no guarding, no rebound, no hepatosplenomegaly, no masses. EXTREMITIES: 2+ pulses, warm, well-perfused, no edema. NEUROLOGICAL: Cranial nerves II through XII grossly intact. Normal speech, gait not observed. slightly tender rt lower chestwall. PSYCH: Normal mood, normal affect. SKIN: Warm, dry, normal turgor, no rashes or lesions noted Laboratory Results - last 24 hr 06/17/20 06/18/20 06/18/20 01:10 04:30 04:50 WBC 4.2 RBC 4.31 Hgb 13.3 Hct 39.4 MCV 91.3 MCH 30.8 MCHC 33.8 RDW 13.4 Plt Count 199 MPV 9.2 Absolute Neuts (auto) 2.5 Neutrophils % 60.2 Lymphocytes % 26.7 Monocytes % 8.9 Eosinophils % 1.6 Basophils % 2.6 H D Nucleated RBC % 0 Sodium Potassium Chloride Carbon Dioxide Anion Gap BUN Creatinine Est GFR (CKD-EPI)AfAm Est GFR (CKD-EPI)NonAf POC Glucometer 102 Random Glucose Calcium Magnesium Total Bilirubin AST ALT Alkaline Phosphatase Total Protein Albumin COVID-19 (ROSY) Not detected 06/18/20 04:50 WBC RBC Hgb Hct MCV MCH MCHC RDW Plt Count MPV Absolute Neuts (auto) Neutrophils % Lymphocytes % Monocytes % Eosinophils % Basophils % Nucleated RBC % Sodium 140 Potassium 3.3 L Chloride 107 Carbon Dioxide 22 Anion Gap 10 BUN 5.8 L Creatinine 0.7 Est GFR (CKD-EPI)AfAm 137.62 Est GFR (CKD-EPI)NonAf 118.74 POC Glucometer Random Glucose 104 Calcium 8.8 Magnesium 2.3 Total Bilirubin 0.6 AST 13 L ALT 18 Alkaline Phosphatase 43 L Total Protein 7.2 Albumin 4.1 COVID-19 (ROSY) Active Medications Generic Name Dose Route Start Last Admin Trade Name Freq PRN Reason Stop Dose Admin Acetaminophen 1,000 mg 06/18/20 11:38 Ofirmev Injection - IVPB 06/19/20 11:38 Q6H PRN PAIN LEVEL 6-10 Al Hydroxide/Mg Hydroxide 30 ml 06/18/20 12:32 Mylanta Oral Suspension - PO Q6H PRN DYSPEPSIA Dextrose/Sodium Chloride 1,000 mls @ 125 mls/hr 06/17/20 00:30 06/18/20 00:41 D5-1/2ns - IV 125 mls/hr ASDIR KWAME Administration Pantoprazole Sodium 80 mg/ 100 mls @ 10 mls/hr 06/18/20 12:45 Sodium Chloride IVPB 06/21/20 12:32 Q10H KWAME 8 MG/HR Metoclopramide HCl 10 mg 06/17/20 04:00 06/18/20 06:51 Reglan Injection - IVPUSH 10 mg Q8H PRN Administration NAUSEA AND/OR VOMITING Ondansetron HCl 4 mg 06/18/20 00:51 06/18/20 04:49 Zofran Injection IVPUSH 4 mg Q4H PRN Administration NAUSEA AND/OR VOMITING ASSESSMENT/PLAN: 25 y/o female with a PMhx of PUD, Gastritis, Marijuana Dependency. Admitted for Intractable Abdominal Pain, Vomiting # Intractable vomiting cyclic vomiting vs marijuana hyperemesis syndrome couldn't tolerate liquid, placed back on NPO c/w antiemetics PRN, IVF, PPI Plan for EGD in AM to work up gastritis/PUD GI recommended S.gastrin level, PBG, SPEP, RISSA, IBD and celiac panels replace electrolytes as needed encourage to ambulate DVT prophylaxis with SCD Visit type - Emergency Visit Emergency Visit: Yes ED Registration Date: 06/17/20 Care time: The patient presented to the Emergency Department on the above date and was hospitalized for further evaluation of their emergent condition. - New Patient This patient is new to me today: No - Critical Care Critical Care patient: No - Discharge Referral Referred to [facility] Med P.C.: No
[2020-06-18] MEDS: MAG HYDROX/AL HYDROX/SIMETH 30 ML UNIT-DOSE CUP PO PRN ×2 (13:39→15:41)
[2020-06-18] MEDS: PANTOPRAZOLE SODIUM 80 MG in SODIUM CHLORIDE 100 ML IVPB SCH ×2 (15:41→23:30)
--- NOTE | 2020-06-18 17:33 | EKG ---
Test Reason : Blood Pressure : / mmHG Vent. Rate : 071 BPM Atrial Rate : 071 BPM P-R Int : 150 ms QRS Dur : 084 ms QT Int : 414 ms P-R-T Axes : 068 074 057 degrees QTc Int : 449 ms SINUS RHYTHM WITH MARKED SINUS ARRHYTHMIA OTHERWISE NORMAL ECG WHEN COMPARED WITH ECG OF 16-JUN-2020 20:15, NONSPECIFIC T WAVE ABNORMALITY, IMPROVED IN ANTERIOR LEADS Confirmed by MD Robbin, Gary ([id number]) on 06/18/2020 5:33:09 PM Referred By: Confirmed By:Gary Siegel MD
--- NOTE | 2020-06-18 17:34 | EKG ---
Test Reason : Blood Pressure : / mmHG Vent. Rate : 074 BPM Atrial Rate : 074 BPM P-R Int : 136 ms QRS Dur : 084 ms QT Int : 394 ms P-R-T Axes : 073 080 056 degrees QTc Int : 437 ms SINUS RHYTHM WITH MARKED SINUS ARRHYTHMIA OTHERWISE NORMAL ECG WHEN COMPARED WITH ECG OF 04-JUN-2020 21:48, NO SIGNIFICANT CHANGE WAS FOUND Confirmed by MD Robbin, Gary ([id number]) on 06/18/2020 5:33:52 PM Referred By: Confirmed By:Gary Siegel MD
[2020-06-19] MEDS: ACETAMINOPHEN 1000 MG/100 ML VIAL (NON FORMULARY) IVPB PRN ×3 (01:50→16:43)
[2020-06-19] MEDS: METOCLOPRAMIDE HCL INJECTION 10 MG/2 ML VIAL IVPUSH PRN (01:51)
[2020-06-19] MEDS: DEXTROSE 5%-0.45% SALINE 1,000 ML IV SCH ×2 (03:49→17:00)
[2020-06-19] MEDS ORDERED: ONDANSETRON 4 MG/2 ML VIAL IVPUSH ONE (05:53)
[2020-06-19 08:55] LABS: EOS % 1.4 % (0-4.5); HEMATOCRIT 38.6 % (32.4-45.2); LYMPH % 28.8 % (8-40); MCH 30.7 pg (25.7-33.7); MCHC 33.6 g/dl (32.0-36.0); MEAN CELL VOLUME 91.2 fl (80-96); MEAN PLT VOLUME 9.5 fl (7.5-11.1); MONO % 9.7 % (3.8-10.2); NEUT % 59.1 % (42.8-82.8); PLATELET COUNT 197 K/MM3 (134-434); RBC 4.23 M/mm3 (3.60-5.2); RDW 13.5 % (11.6-15.6); WHITE BLOOD COUNT 4.1 K/mm3 (4.0-10.0)
--- NOTE | 2020-06-19 09:18 | PN.GI ---
GI Progress Note Subjective: GI Procedure NOte ( covering Dr Turpin): Please see EGD report. GERD and gastritis noted. Has gaseous discomfort but has finally had a BM. Had not moved her bowels in several days. - Objective Vital Signs: Vital Signs Temperature 97.8 F 06/19/20 08:29 Pulse Rate 70 06/19/20 08:44 Respiratory Rate 16 06/19/20 08:44 Blood Pressure 102/89 06/19/20 08:44 O2 Sat by Pulse Oximetry (%) 100 06/19/20 08:44 Constitutional: Anxious ...Auscultate: Yes: Hypoactive Bowel Sounds ...Palpate: Yes: Other (nonlocalizing tenderness) Labs: CBC, BMP 06/19/20 07:40 Assessment/Plan Impression: - Gastritis and GERD on EGD. Plan: -- PPI BID -- Antacids prn -- Serum gastrin level, PBG, SPEP, RISSA, IBD and celiac panels -- Miralax TID Discussed with Dr Turpin Problem List - Problems (1) Gastritis Code(s): K29.70 - GASTRITIS, UNSPECIFIED, WITHOUT BLEEDING (2) GERD with esophagitis Code(s): K21.0 - GASTRO-ESOPHAGEAL REFLUX DISEASE WITH ESOPHAGITIS (3) Chronic upper abdominal pain Code(s): R10.10 - UPPER ABDOMINAL PAIN, UNSPECIFIED; G89.29 - OTHER CHRONIC PAIN (4) Nausea and vomiting Code(s): R11.2 - NAUSEA WITH VOMITING, UNSPECIFIED (5) Hematemesis Code(s): K92.0 - HEMATEMESIS (6) History of ulcer disease Code(s): Z87.898 - PERSONAL HISTORY OF OTHER SPECIFIED CONDITIONS (7) Constipation Code(s): K59.00 - CONSTIPATION, UNSPECIFIED
[2020-06-19 09:25] LABS: ALBUMIN 3.8 g/dl (3.4-5.0); ALK PHOS 41 U/L (45-117); ANION GAP 9 MMOL/L (8-16); BILIRUBIN,TOTAL 0.7 mg/dL (0.2-1); BLOOD UREA NITROGEN 4.7 mg/dL (7-18); CHLORIDE 106 mmol/L (98-107); CO2 24 mmol/L (21-32); CREATININE 0.7 mg/dL (0.55-1.3); GLUCOSE,RANDOM 83 mg/dL (74-106); LIPASE 39 U/L (73-393); POTASSIUM 3.9 mmol/L (3.5-5.1); SGOT/AST 11 U/L (15-37); SGPT/ALT 15 U/L (13-61); SODIUM 139 mmol/L (136-145); TOT PROT 6.8 g/dl (6.4-8.2)
--- NOTE | 2020-06-19 09:44 | PN ---
Teaching Attending Note Name of Resident: Juliane Carrasco ATTENDING PHYSICIAN STATEMENT I saw and evaluated the patient. I reviewed the resident's note and discussed the case with the resident. I agree with the resident's findings and plan as documented. SUBJECTIVE: seen and examined post EGD OBJECTIVE: Last Vital Signs Temp Pulse Resp BP Pulse Ox 97.8 F 70 16 102/89 100 06/19/20 08:29 06/19/20 08:44 06/19/20 08:44 06/19/20 08:44 06/19/20 08:44 GENERAL: The patient is awake, alert, and fully oriented, in no acute distress. HEENT: NC/AT, not pale/cyanosed or jaundiced, PERRLA LUNGS: CTA bilaterally, no wheezes, no crackles, no accessory muscle use. HEART: Regular rate and rhythm, S1, S2 without murmur, rub or gallop. ABDOMEN: Soft, nontender, nondistended, normoactive bowel sounds, no guarding, no rebound, no hepatosplenomegaly, no masses. EXTREMITIES: 2+ pulses, warm, well-perfused, no edema. NEUROLOGICAL: Cranial nerves II through XII grossly intact. Normal speech, gait not observed. slightly tender rt lower chestwall. PSYCH: Normal mood, normal affect. SKIN: Warm, dry, normal turgor, no rashes or lesions noted CBCD WBC 4.1 K/mm3 (4.0-10.0) 06/19/20 07:40 RBC 4.23 M/mm3 (3.60-5.2) 06/19/20 07:40 Hgb 13.0 GM/dL (10.7-15.3) 06/19/20 07:40 Hct 38.6 % (32.4-45.2) 06/19/20 07:40 MCV 91.2 fl (80-96) 06/19/20 07:40 MCHC 33.6 g/dl (32.0-36.0) 06/19/20 07:40 RDW 13.5 % (11.6-15.6) 06/19/20 07:40 Plt Count 197 K/MM3 (134-434) 06/19/20 07:40 MPV 9.5 fl (7.5-11.1) 06/19/20 07:40 CMP Sodium 139 mmol/L (136-145) 06/19/20 07:40 Potassium 3.9 mmol/L (3.5-5.1) 06/19/20 07:40 Chloride 106 mmol/L (98-107) 06/19/20 07:40 Carbon Dioxide 24 mmol/L (21-32) 06/19/20 07:40 Anion Gap 9 MMOL/L (8-16) 06/19/20 07:40 BUN 4.7 mg/dL (7-18) L 06/19/20 07:40 Creatinine 0.7 mg/dL (0.55-1.3) 06/19/20 07:40 Calcium 9.0 mg/dL (8.5-10.1) 06/19/20 07:40 Total Bilirubin 0.7 mg/dL (0.2-1) 06/19/20 07:40 AST 11 U/L (15-37) L 06/19/20 07:40 ALT 15 U/L (13-61) 06/19/20 07:40 Alkaline Phosphatase 41 U/L (45-117) L 06/19/20 07:40 Total Protein 6.8 g/dl (6.4-8.2) 06/19/20 07:40 Albumin 3.8 g/dl (3.4-5.0) 06/19/20 07:40 Active Medications Acetaminophen (Ofirmev Injection -) 1,000 mg IVPB Q6H PRN PRN Reason: PAIN LEVEL 6-10 Stop: 06/19/20 11:38 Last Admin: 06/19/20 01:50 Dose: 1,000 mg Documented by: Al Hydroxide/Mg Hydroxide (Mylanta Oral Suspension -) 30 ml PO Q6H PRN PRN Reason: DYSPEPSIA Last Admin: 06/18/20 15:41 Dose: 30 ml Documented by: Dextrose/Sodium Chloride (D5-1/2ns -) 1,000 mls @ 125 mls/hr IV ASDIR KWAME Last Admin: 06/19/20 03:49 Dose: Not Given Documented by: Pantoprazole Sodium (Protonix Iv) 40 mg IVPUSH BID KWAME Polyethylene Glycol (Miralax (For Daily Use) -) 17 gm PO TID KWAME ASSESSMENT AND PLAN: 25 y/o female with a PMhx of PUD, Gastritis, Marijuana Dependency. Admitted for Intractable Abdominal Pain, Vomiting # Intractable vomiting marijuana hyperemesis syndrome s/p EGD, gastritis and GERD c/w antiemetics PRN, IVF, PPI, Mylanta S.gastrin level, PBG, SPEP, RISSA, IBD and celiac panels pending clear liquid diet as tolerated DVT prophylaxis with SCD Plan: still unable to tolerate solid diet, will plan discharge once tolerated regular diet
[2020-06-19] MEDS: PANTOPRAZOLE SODIUM 40 MG VIAL IVPUSH SCH ×2 (09:59→21:21)
[2020-06-19] MEDS: MAG HYDROX/AL HYDROX/SIMETH 30 ML UNIT-DOSE CUP PO PRN ×3 (09:59→21:30)
[2020-06-19] MEDS: PANTOPRAZOLE SODIUM 80 MG in SODIUM CHLORIDE 100 ML IVPB SCH (09:59)
--- NOTE | 2020-06-19 11:07 | PN ---
Physical Exam: SUBJECTIVE: Patient seen and examined at bedside this morning. Patient sleeping comfortably. She reported having NBNB vomiting overnight and abdominal pain from the vomiting, but denies any fevers, chills, headache, chest pain, SOB, diarrhea, urinary symptoms. OBJECTIVE: Vital Signs Temperature 98.2 F 06/19/20 10:00 Pulse Rate 63 06/19/20 10:00 Respiratory Rate 18 06/19/20 10:00 Blood Pressure 130/75 06/19/20 10:00 O2 Sat by Pulse Oximetry (%) 100 06/19/20 10:00 GENERAL: The patient is awake, alert, and fully oriented, in no acute distress. NECK: full range of motion, supple. LUNGS: Breath sounds equal, clear to auscultation bilaterally HEART: Regular rate and rhythm, S1, S2 ABDOMEN: Soft, nontender, nondistended, normoactive bowel sounds EXTREMITIES: 2+ pulses, warm, well-perfused, no edema. NEUROLOGICAL: Cranial nerves II through XII grossly intact. Normal speech PSYCH: Normal mood, normal affect. SKIN: Warm, dry, normal turgor Laboratory Results - last 24 hr 06/19/20 06/19/20 07:40 07:40 WBC 4.1 RBC 4.23 Hgb 13.0 Hct 38.6 MCV 91.2 MCH 30.7 MCHC 33.6 RDW 13.5 Plt Count 197 MPV 9.5 Absolute Neuts (auto) 2.4 Neutrophils % 59.1 Lymphocytes % 28.8 Monocytes % 9.7 Eosinophils % 1.4 Basophils % 1.0 Nucleated RBC % 0 Sodium 139 Potassium 3.9 Chloride 106 Carbon Dioxide 24 Anion Gap 9 BUN 4.7 L Creatinine 0.7 Est GFR (CKD-EPI)AfAm 137.62 Est GFR (CKD-EPI)NonAf 118.74 Random Glucose 83 Calcium 9.0 Total Bilirubin 0.7 AST 11 L ALT 15 Alkaline Phosphatase 41 L C-Reactive Protein < 0.3 Total Protein 6.8 Albumin 3.8 Lipase 39 L Active Medications Generic Name Dose Route Start Last Admin Trade Name Freq PRN Reason Stop Dose Admin Acetaminophen 1,000 mg 06/18/20 11:38 06/19/20 09:58 Ofirmev Injection - IVPB 06/19/20 11:38 1,000 mg Q6H PRN Administration PAIN LEVEL 6-10 Al Hydroxide/Mg Hydroxide 30 ml 06/18/20 12:32 06/19/20 09:59 Mylanta Oral Suspension - PO 30 ml Q6H PRN Administration DYSPEPSIA Dextrose/Sodium Chloride 1,000 mls @ 125 mls/hr 06/17/20 00:30 06/19/20 03:49 D5-1/2ns - IV Not Given ASDIR KWAME Pantoprazole Sodium 40 mg 06/19/20 10:00 06/19/20 09:59 Protonix Iv IVPUSH 40 mg BID KWAME Administration Polyethylene Glycol 17 gm 06/19/20 14:00 Miralax (For Daily Use) - PO TID KWAME ASSESSMENT/PLAN: Patient is a 25 y/o female with a PMhx of PUD, Gastritis, Marijuana Dependency. Admitted for Intractable Abdominal Pain, Vomiting, Hypokalemia. #Abdominal pain and intractable vomiting -possibly 2/2 cyclical vomiting 2/2 marijuana use -EGD done showed Gastritis and GERD -Continue Protonix 40mg bid -Mylanta prn, antiemetics prn -Miralax for constipation -Serum gastrin level, PBG, SPEP, RISSA, IBD and celiac panels pending -GI (Dr. Stanley) cosulted. Recommendations appreciated. #FEn -D5-1/2NS @ 125cc/hr -Electrolytes wnl, routine bmp monitoring -Soft diet #PRophylaxis -SCDs, early ambulation #Disposition -full code -med surg Visit type - Emergency Visit Emergency Visit: Yes ED Registration Date: 06/17/20 Care time: The patient presented to the Emergency Department on the above date and was hospitalized for further evaluation of their emergent condition. - New Patient This patient is new to me today: Yes Date on this admission: 06/19/20 - Critical Care Critical Care patient: No ATTENDING PHYSICIAN STATEMENT I saw and evaluated the patient. I reviewed the resident's note and discussed the case with the resident. I agree with the resident's findings and plan as documented. SUBJECTIVE: OBJECTIVE: ASSESSMENT AND PLAN:
[2020-06-19] MEDS ORDERED: ONDANSETRON 4 MG/2 ML VIAL IVPUSH PRN (11:33)
[2020-06-19] MEDS: ONDANSETRON 4 MG/2 ML VIAL IVPUSH PRN ×2 (12:25→16:43)
[2020-06-19] MEDS ORDERED: POLYETHYLENE GLYCOL 3350 119 GM BTL PO SCH (14:00)
[2020-06-19 18:19] LABS: ALBUMIN 3.7 g/dl (3.4-5.0); BILIRUBIN,TOTAL 0.4 mg/dL (0.2-1); BLOOD UREA NITROGEN 5.4 mg/dL (7-18); CALCIUM 8.7 mg/dL (8.5-10.1); CREATININE 0.6 mg/dL (0.55-1.3); POTASSIUM 3.4 mmol/L (3.5-5.1); TOT PROT 6.6 g/dl (6.4-8.2)
[2020-06-20] MEDS: ONDANSETRON 4 MG/2 ML VIAL IVPUSH PRN ×3 (00:34→11:45)
[2020-06-20] MEDS: DEXTROSE 5%-0.45% SALINE 1,000 ML IV SCH (03:00)
[2020-06-20] MEDS ORDERED: POTASSIUM CHLORIDE ORAL LIQUID 20 MEQ/15 ML PO ONE (06:49)
[2020-06-20] MEDS: ACETAMINOPHEN 1000 MG/100 ML VIAL (NON FORMULARY) IVPB PRN (07:43)
[2020-06-20] MEDS ORDERED: POTASSIUM CHLORIDE TABS 20 MEQ TABLET.ER (FP) PO ONE (08:15)
[2020-06-20] MEDS: PANTOPRAZOLE SODIUM 40 MG VIAL IVPUSH SCH (09:18)
[2020-06-20] MEDS: MAG HYDROX/AL HYDROX/SIMETH 30 ML UNIT-DOSE CUP PO PRN (09:39)
--- NOTE | 2020-06-20 11:59 | PN.GI ---
GI Progress Note Subjective: Was walking round room, appeared comfortable States that her "stomach is unsettld but doesn't know why". EGD yesterday revealed antral gastritis and mild reflux esophagitis - Objective Vital Signs: Vital Signs Temperature 98.6 F 06/20/20 05:56 Pulse Rate 78 06/20/20 10:00 Respiratory Rate 18 06/20/20 10:00 Blood Pressure 119/73 06/20/20 10:00 O2 Sat by Pulse Oximetry (%) 99 06/20/20 10:00 Constitutional: Calm Eyes: No: Sclera Icterus Cardiovascular: Yes: Regular Rate and Rhythm. No: Murmur Respiratory: Yes: CTA Bilaterally Gastrointestinal Inspection: Yes: Other (decorative umbilica ring) ...Auscultate: Yes: Normoactive Bowel Sounds ...Palpate: Yes: Tenderness (marked TTP right paramedian and RLQ. This caused her to cry when palpated and retched) ...Percussion: No: Tympanitic Edema: No (No LE edema) Neurological: Yes: Alert Labs: CBC, BMP 06/19/20 07:40 Problem List - Problems (1) Abdominal pain Assessment/Plan: Significant abdominal tenderness on exam today Advise: NPO except meds IV hydration per primary team CT scan A/P Ordered CBC/CMP for today Serum gastrin level pending Dr. Stanley ordered SPEP: F/U per primary team Random Urine PBG pending Needs complete marijuana cessation Code(s): R10.9 - UNSPECIFIED ABDOMINAL PAIN Qualifiers: Abdominal location: right lower quadrant Qualified Code(s): R10.31 - Right lower quadrant pain
[2020-06-20 12:08] LABS: ALBUMIN 4.2 g/dl (3.4-5.0); BILIRUBIN,TOTAL 0.6 mg/dL (0.2-1); CALCIUM 9.3 mg/dL (8.5-10.1); CREATININE 0.8 mg/dL (0.55-1.3); MAGNESIUM 2.5 mg/dL (1.8-2.4)
[2020-06-20 12:14] LABS: TOT PROT 7.6 g/dl (6.4-8.2)
[2020-06-20 12:26] LABS: BLOOD UREA NITROGEN 2.2 mg/dL (7-18)
[2020-06-20 13:33] LABS: BASO % 0.7 % (0-2.0); HEMATOCRIT 33.5 % (32.4-45.2); LYMPH % 41.1 % (8-40); MCH 30.8 pg (25.7-33.7); MCHC 32.8 g/dl (32.0-36.0); MEAN CELL VOLUME 93.9 fl (80-96); MEAN PLT VOLUME 10.3 fl (7.5-11.1); MONO % 10.6 % (3.8-10.2); NEUT % 43.6 % (42.8-82.8); PLATELET COUNT 165 K/MM3 (134-434); RBC 3.57 M/mm3 (3.60-5.2); RDW 13.8 % (11.6-15.6); WHITE BLOOD COUNT 3.3 K/mm3 (4.0-10.0)
[2020-06-20 14:45] VITALS: BP 115/65; PULSE 59; TEMP 98.5
--- NOTE | 2020-06-20 14:50 | PATH ---
Surgical Pathology Report Patient Name: ERIKA VALADEZ [facility]. Rec. #: [id number] /Age/Gender: 1995 (Age: 25) / F Account: [id number] Location: [address] [place] [address] Taken: 06/19/2020 Received: 06/19/2020 Reported: 06/20/2020 Physicians: Leta Stanley M.D. Specimen(s) Received A: DUODENUM AND DUODENAL BULB B: ANTRUM C: GE JUNCTION AND MID ESOPHAGUS Clinical History Abdominal pain Final Diagnosis A. SECOND PORTION DUODENAL AND DUODENAL BULB, BIOPSY: DUODENAL MUCOSA WITH NO SIGNIFICANT PATHOLOGIC CHANGE. NO HISTOLOGIC EVIDENCE OF INTRAEPITHELIAL LYMPHOCYTOSIS. B. ANTRUM, BIOPSY: GASTRIC MUCOSA WITH CHRONIC GASTRITIS AND REACTIVE GASTROPATHY. IMMUNOSTAIN FOR H. PYLORI IS NEGATIVE. NEGATIVE FOR INTESTINAL METAPLASIA. C. GE JUNCTION AND ESOPHAGUS, BIOPSY: SQUAMOUS MUCOSA WITH NO SIGNIFICANT PATHOLOGIC CHANGE. NO HISTOLOGIC EVIDENCE OF EOSINOPHILIC ESOPHAGITIS. NEGATIVE FOR INTESTINAL METAPLASIA. Electronically Signed Augusto Gonzalez M.D. Gross Description A. Received in formalin, labeled "second portion duodenum and duodenal bulb" are 4 rubio, irregular soft tissue measuring 0.3 cm. in greatest dimension. The specimen is submitted in toto in one cassette. B. Received in formalin, labeled "antrum" are 4 rubio soft tissue measuring 0.1-0.3 cm. in greatest dimension. The specimen is submitted in toto in one cassette. C. Received in formalin, labeled "GE junction and mid esophagus" are 4 rubio, irregular soft tissue measuring 0.1 to 0.2 cm. in greatest dimension. The specimen is submitted in toto in one cassette. KWJacey/06/19/2020 jt/06/19/2020
--- NOTE | 2020-06-20 16:50 | DS ---
Physical Exam: SUBJECTIVE: Patient seen and examined. OBJECTIVE: Vital Signs Temperature 98.5 F 06/20/20 14:43 Pulse Rate 59 L 06/20/20 14:43 Respiratory Rate 18 06/20/20 14:43 Blood Pressure 115/65 06/20/20 14:43 O2 Sat by Pulse Oximetry (%) 99 06/20/20 10:00 PHYSICAL EXAM GENERAL: The patient is awake, alert, and fully oriented, in no acute distress. NECK: full range of motion, supple. LUNGS: Breath sounds equal, clear to auscultation bilaterally HEART: Regular rate and rhythm, S1, S2 ABDOMEN: Soft, nontender, nondistended, normoactive bowel sounds EXTREMITIES: 2+ pulses, warm, well-perfused, no edema. NEUROLOGICAL: Cranial nerves II through XII grossly intact. Normal speech PSYCH: Normal mood, normal affect. SKIN: Warm, dry, normal turgor LABS Laboratory Results - last 24 hr 06/19/20 06/20/20 06/20/20 14:34 06:40 06:40 WBC 3.3 L RBC 3.57 L Hgb 11.0 Hct 33.5 MCV 93.9 MCH 30.8 MCHC 32.8 RDW 13.8 Plt Count 165 MPV 10.3 Absolute Neuts (auto) 1.4 L Neutrophils % 43.6 D Lymphocytes % 41.1 H D Monocytes % 10.6 H Eosinophils % 4.0 D Basophils % 0.7 Nucleated RBC % 0 Sodium 135 L Cancelled Potassium 3.4 L Cancelled Chloride 106 Cancelled Carbon Dioxide 22 Cancelled Anion Gap 7 L Cancelled BUN 5.4 L Cancelled Creatinine 0.6 Cancelled Est GFR (CKD-EPI)AfAm 144.78 Cancelled Est GFR (CKD-EPI)NonAf 124.92 Cancelled Random Glucose 99 Cancelled Calcium 8.7 Cancelled Phosphorus Cancelled Magnesium Cancelled Total Bilirubin 0.4 Cancelled AST 10 L Cancelled ALT 15 Cancelled Alkaline Phosphatase 42 L Cancelled Total Protein 6.6 Cancelled Albumin 3.7 Cancelled 06/20/20 10:20 WBC RBC Hgb Hct MCV MCH MCHC RDW Plt Count MPV Absolute Neuts (auto) Neutrophils % Lymphocytes % Monocytes % Eosinophils % Basophils % Nucleated RBC % Sodium 139 Potassium 4.0 Chloride 106 Carbon Dioxide 26 Anion Gap 6 L BUN 2.2 L* Creatinine 0.8 Est GFR (CKD-EPI)AfAm 117.10 Est GFR (CKD-EPI)NonAf 101.04 Random Glucose 81 Calcium 9.3 Phosphorus Magnesium 2.5 H Total Bilirubin 0.6 AST 10 L ALT 15 Alkaline Phosphatase 46 Total Protein 7.6 Albumin 4.2 HOSPITAL COURSE: Date of Admission:06/17/20 Date of Discharge: 06/20/20 Patient is a 25 y/o female with a PMhx of PUD, Gastritis, Marijuana Dependency. Admitted for Intractable Abdominal Pain, Vomiting, Hypokalemia, possibly cyclical vomiting 2/2 marijuana use. Patient was evaluated by GI. EGD was done which showed gastritis and GERD. Patient was placed on PPI and antiemetics prn. Serum gastrin level, PBG, SPEP, RISSA, IBD and celiac panels pending. Patient continued to have episodes of vomiting, and was placed back on NPo and CT abdomen ordered. Patient however, refused any more care, understands the risk of leaving against medical advise, but she still signed out AMA. Minutes to complete discharge: 36 Discharge Summary Problems reviewed: Yes Reason For Visit: INTRACTABLE ABDOMINAL PAIN, INTRACTABLE VOMITING - Instructions Disposition: AGAINST MEDICAL ADVICE - Home Medications Comprehensive Discharge Medication List: Ambulatory Orders Famotidine [Pepcid] 20 mg PO BID #30 tablet 06/05/20 Ondansetron HCl [Zofran] 4 mg PO Q8H PRN #10 tablet 06/05/20 This patient is new to me today: No Emergency Visit: Yes ED Registration Date: 06/17/20 Care time: The patient presented to the Emergency Department on the above date and was hospitalized for further evaluation of their emergent condition. Critical Care patient: No - Discharge Referral Referred to [facility] Med P.C.: No ATTENDING PHYSICIAN STATEMENT I saw and evaluated the patient. I reviewed the resident's note and discussed the case with the resident. I agree with the resident's findings and plan as documented. SUBJECTIVE: OBJECTIVE: ASSESSMENT AND PLAN:
[2020-06-21] MEDS ORDERED: BANATROL PLUS POWDER PACKET PO SCH (06:00)
[2020-06-21 17:08] LABS: ATYPICAL pANCA <1:20 titer (Neg:<1:20); C-ANCA <1:20 titer (Neg:<1:20)
--- NOTE | 2020-06-21 18:26 | PN ---
Teaching Attending Note Name of Resident: Juliane Carrasco ATTENDING PHYSICIAN STATEMENT I saw and evaluated the patient. I reviewed the resident's note and discussed the case with the resident. I agree with the resident's findings and plan as documented. SUBJECTIVE: Patient seen and examined at bedside, denies abdominal pain currently and abdominal exam benign, ?Still vomiting but not witnessed. VSS. OBJECTIVE: GENERAL: The patient is awake, alert, and fully oriented, in no acute distress. HEENT: NC/AT, not pale/cyanosed or jaundiced, PERRLA LUNGS: CTA bilaterally, no wheezes, no crackles, no accessory muscle use. HEART: Regular rate and rhythm, S1, S2 without murmur, rub or gallop. ABDOMEN: Soft, nontender, nondistended, normoactive bowel sounds, no guarding, no rebound, no hepatosplenomegaly, no masses. EXTREMITIES: 2+ pulses, warm, well-perfused, no edema. NEUROLOGICAL: Cranial nerves II through XII grossly intact. Normal speech, gait not observed. slightly tender rt lower chestwall. PSYCH: Anxious, answers to questions appropriately SKIN: Warm, dry, normal turgor, no rashes or lesions noted Vital Signs (72 hours) 06/18/20 06/19/20 06/19/20 21:00 03:00 05:46 Temperature 98.7 F 98.6 F 98.4 F Pulse Rate 68 66 73 Respiratory 18 17 18 Rate Blood Pressure 120/78 123/80 100/55 L O2 Sat by Pulse 100 100 75 L Oximetry (%) 06/19/20 06/19/20 06/19/20 08:29 08:44 09:00 Temperature 97.8 F Pulse Rate 83 70 Respiratory 20 16 Rate Blood Pressure 123/76 102/89 O2 Sat by Pulse 100 100 100 Oximetry (%) 06/19/20 06/19/20 06/19/20 09:05 10:00 14:31 Temperature 98.2 F Pulse Rate 74 63 96 H Respiratory 16 18 Rate Blood Pressure 126/79 130/75 137/70 O2 Sat by Pulse 100 100 100 Oximetry (%) 06/19/20 06/19/20 06/20/20 20:10 20:13 05:56 Temperature 98.8 F 98.6 F Pulse Rate 74 64 Respiratory 18 18 18 Rate Blood Pressure 134/66 129/64 O2 Sat by Pulse 99 99 99 Oximetry (%) 06/20/20 06/20/20 10:00 14:43 Temperature 98.5 F Pulse Rate 78 59 L Respiratory 18 18 Rate Blood Pressure 119/73 115/65 O2 Sat by Pulse 99 Oximetry (%) Microbiology 06/17/20 07:30 Urine - Urine Clean Catch Urine Culture - Final Diphtheroid/Corynebacterium Laboratory Tests 06/16/20 06/16/20 06/16/20 19:40 19:40 21:52 WBC 6.9 RBC 4.93 Hgb 15.6 H Hct 45.7 H D MCV 92.5 MCH 31.6 MCHC 34.2 RDW 13.5 Plt Count 240 MPV 9.2 Absolute Neuts (auto) 4.9 Neutrophils % 70.1 Lymphocytes % 19.7 D Monocytes % 9.2 Eosinophils % 0.2 Basophils % 0.8 Nucleated RBC % 0 Sodium 138 Potassium 3.4 L Chloride 99 Carbon Dioxide 22 Anion Gap 17 H BUN 11.5 Creatinine 0.9 Est GFR (CKD-EPI)AfAm 101.56 Est GFR (CKD-EPI)NonAf 87.63 POC Glucometer Random Glucose 100 Calcium 10.0 Phosphorus Magnesium Total Bilirubin 0.7 AST 15 ALT 22 Alkaline Phosphatase 52 C-Reactive Protein Total Protein 8.8 H Albumin 4.9 Lipase 45 L Gastrin Urine Color Yellow Urine Appearance Clear Urine pH 5.5 Ur Specific [place] 1.038 H Urine Protein 1+ H Urine Glucose (UA) Negative Urine Ketones 4+ H Urine Blood Negative Urine Nitrite Negative Urine Bilirubin Negative Urine Urobilinogen 1.0 Ur Leukocyte Esterase Negative Urine WBC (Auto) 8 Urine RBC (Auto) 3 Urine Casts (Auto) 5 U Epithel Cells (Auto) >36 Urine Bacteria (Auto) 551 Urine HCG, Qual Opiates Screen Methadone Screen Barbiturate Screen Phencyclidine Screen Ur Amphetamines Screen MDMA (Ecstasy) Screen Benzodiazepines Screen Cocaine Screen U Marijuana (THC) Screen c-ANCA Proteinase 3 (PR3) p-ANCA Atypical p-ANCA Myeloperoxidase Ab COVID-19 (ROSY) S.cerevisiae IgG Ab S. cerevisiae IgG/IgA 06/16/20 06/17/20 06/17/20 21:52 01:10 07:12 WBC 5.7 RBC 3.94 Hgb 12.1 Hct 35.9 D MCV 91.0 MCH 30.8 MCHC 33.8 RDW 13.5 Plt Count 188 D MPV 9.0 Absolute Neuts (auto) 3.0 Neutrophils % 52.9 D Lymphocytes % 30.5 D Monocytes % 14.6 H Eosinophils % 1.2 D Basophils % 0.8 Nucleated RBC % 0 Sodium Potassium Chloride Carbon Dioxide Anion Gap BUN Creatinine Est GFR (CKD-EPI)AfAm Est GFR (CKD-EPI)NonAf POC Glucometer Random Glucose Calcium Phosphorus Magnesium Total Bilirubin AST ALT Alkaline Phosphatase C-Reactive Protein Total Protein Albumin Lipase Gastrin Urine Color Urine Appearance Urine pH Ur Specific [place] Urine Protein Urine Glucose (UA) Urine Ketones Urine Blood Urine Nitrite Urine Bilirubin Urine Urobilinogen Ur Leukocyte Esterase Urine WBC (Auto) Urine RBC (Auto) Urine Casts (Auto) U Epithel Cells (Auto) Urine Bacteria (Auto) Urine HCG, Qual Negative Opiates Screen Methadone Screen Barbiturate Screen Phencyclidine Screen Ur Amphetamines Screen MDMA (Ecstasy) Screen Benzodiazepines Screen Cocaine Screen U Marijuana (THC) Screen c-ANCA Proteinase 3 (PR3) p-ANCA Atypical p-ANCA Myeloperoxidase Ab COVID-19 (ROSY) Not detected S.cerevisiae IgG Ab S. cerevisiae IgG/IgA 06/17/20 06/17/20 06/18/20 07:12 07:30 04:30 WBC RBC Hgb Hct MCV MCH MCHC RDW Plt Count MPV Absolute Neuts (auto) Neutrophils % Lymphocytes % Monocytes % Eosinophils % Basophils % Nucleated RBC % Sodium 137 Potassium 3.0 L Chloride 102 Carbon Dioxide 24 Anion Gap 11 BUN 8.6 Creatinine 0.6 Est GFR (CKD-EPI)AfAm 144.78 Est GFR (CKD-EPI)NonAf 124.92 POC Glucometer 102 Random Glucose 112 H Calcium 8.1 L Phosphorus Magnesium Total Bilirubin 0.7 AST 10 L ALT 15 Alkaline Phosphatase 40 L C-Reactive Protein Total Protein 6.7 Albumin 3.6 Lipase Gastrin Urine Color Urine Appearance Urine pH Ur Specific [place] Urine Protein Urine Glucose (UA) Urine Ketones Urine Blood Urine Nitrite Urine Bilirubin Urine Urobilinogen Ur Leukocyte Esterase Urine WBC (Auto) Urine RBC (Auto) Urine Casts (Auto) U Epithel Cells (Auto) Urine Bacteria (Auto) Urine HCG, Qual Opiates Screen Negative Methadone Screen Negative Barbiturate Screen Negative Phencyclidine Screen Negative Ur Amphetamines Screen Negative MDMA (Ecstasy) Screen Negative Benzodiazepines Screen Negative Cocaine Screen Negative U Marijuana (THC) Screen Positive A* c-ANCA Proteinase 3 (PR3) p-ANCA Atypical p-ANCA Myeloperoxidase Ab COVID-19 (ROSY) S.cerevisiae IgG Ab S. cerevisiae IgG/IgA 06/18/20 06/18/20 06/19/20 04:50 04:50 07:40 WBC 4.2 RBC 4.31 Hgb 13.3 Hct 39.4 MCV 91.3 MCH 30.8 MCHC 33.8 RDW 13.4 Plt Count 199 MPV 9.2 Absolute Neuts (auto) 2.5 Neutrophils % 60.2 Lymphocytes % 26.7 Monocytes % 8.9 Eosinophils % 1.6 Basophils % 2.6 H D Nucleated RBC % 0 Sodium 140 139 Potassium 3.3 L 3.9 Chloride 107 106 Carbon Dioxide 22 24 Anion Gap 10 9 BUN 5.8 L 4.7 L Creatinine 0.7 0.7 Est GFR (CKD-EPI)AfAm 137.62 137.62 Est GFR (CKD-EPI)NonAf 118.74 118.74 POC Glucometer Random Glucose 104 83 Calcium 8.8 9.0 Phosphorus Magnesium 2.3 Total Bilirubin 0.6 0.7 AST 13 L 11 L ALT 18 15 Alkaline Phosphatase 43 L 41 L C-Reactive Protein < 0.3 Total Protein 7.2 6.8 Albumin 4.1 3.8 Lipase 39 L Gastrin Urine Color Urine Appearance Urine pH Ur Specific [place] Urine Protein Urine Glucose (UA) Urine Ketones Urine Blood Urine Nitrite Urine Bilirubin Urine Urobilinogen Ur Leukocyte Esterase Urine WBC (Auto) Urine RBC (Auto) Urine Casts (Auto) U Epithel Cells (Auto) Urine Bacteria (Auto) Urine HCG, Qual Opiates Screen Methadone Screen Barbiturate Screen Phencyclidine Screen Ur Amphetamines Screen MDMA (Ecstasy) Screen Benzodiazepines Screen Cocaine Screen U Marijuana (THC) Screen c-ANCA Proteinase 3 (PR3) p-ANCA Atypical p-ANCA Myeloperoxidase Ab COVID-19 (ROSY) S.cerevisiae IgG Ab S. cerevisiae IgG/IgA 06/19/20 06/19/20 06/19/20 07:40 07:40 14:34 WBC 4.1 RBC 4.23 Hgb 13.0 Hct 38.6 MCV 91.2 MCH 30.7 MCHC 33.6 RDW 13.5 Plt Count 197 MPV 9.5 Absolute Neuts (auto) 2.4 Neutrophils % 59.1 Lymphocytes % 28.8 Monocytes % 9.7 Eosinophils % 1.4 Basophils % 1.0 Nucleated RBC % 0 Sodium 135 L Potassium 3.4 L Chloride 106 Carbon Dioxide 22 Anion Gap 7 L BUN 5.4 L Creatinine 0.6 Est GFR (CKD-EPI)AfAm 144.78 Est GFR (CKD-EPI)NonAf 124.92 POC Glucometer Random Glucose 99 Calcium 8.7 Phosphorus Magnesium Total Bilirubin 0.4 AST 10 L ALT 15 Alkaline Phosphatase 42 L C-Reactive Protein Total Protein 6.6 Albumin 3.7 Lipase [place] 170 H Urine Color Urine Appearance Urine pH Ur Specific [place] Urine Protein Urine Glucose (UA) Urine Ketones Urine Blood Urine Nitrite Urine Bilirubin Urine Urobilinogen Ur Leukocyte Esterase Urine WBC (Auto) Urine RBC (Auto) Urine Casts (Auto) U Epithel Cells (Auto) Urine Bacteria (Auto) Urine HCG, Qual Opiates Screen Methadone Screen Barbiturate Screen Phencyclidine Screen Ur Amphetamines Screen MDMA (Ecstasy) Screen Benzodiazepines Screen Cocaine Screen U Marijuana (THC) Screen c-ANCA <1:20 Proteinase 3 (PR3) <3.5 p-ANCA <1:20 Atypical p-ANCA <1:20 Myeloperoxidase Ab <9.0 COVID-19 (ROSY) S.cerevisiae IgG Ab <20.0 S. cerevisiae IgG/IgA <20.0 06/20/20 06/20/20 06/20/20 06:40 06:40 10:20 WBC 3.3 L RBC 3.57 L Hgb 11.0 Hct 33.5 MCV 93.9 MCH 30.8 MCHC 32.8 RDW 13.8 Plt Count 165 MPV 10.3 Absolute Neuts (auto) 1.4 L Neutrophils % 43.6 D Lymphocytes % 41.1 H D Monocytes % 10.6 H Eosinophils % 4.0 D Basophils % 0.7 Nucleated RBC % 0 Sodium Cancelled 139 Potassium Cancelled 4.0 Chloride Cancelled 106 Carbon Dioxide Cancelled 26 Anion Gap Cancelled 6 L BUN Cancelled 2.2 L* Creatinine Cancelled 0.8 Est GFR (CKD-EPI)AfAm Cancelled 117.10 Est GFR (CKD-EPI)NonAf Cancelled 101.04 POC Glucometer Random Glucose Cancelled 81 Calcium Cancelled 9.3 Phosphorus Cancelled Magnesium Cancelled 2.5 H Total Bilirubin Cancelled 0.6 AST Cancelled 10 L ALT Cancelled 15 Alkaline Phosphatase Cancelled 46 C-Reactive Protein Total Protein Cancelled 7.6 Albumin Cancelled 4.2 Lipase Gastrin Urine Color Urine Appearance Urine pH Ur Specific [place] Urine Protein Urine Glucose (UA) Urine Ketones Urine Blood Urine Nitrite Urine Bilirubin Urine Urobilinogen Ur Leukocyte Esterase Urine WBC (Auto) Urine RBC (Auto) Urine Casts (Auto) U Epithel Cells (Auto) Urine Bacteria (Auto) Urine HCG, Qual Opiates Screen Methadone Screen Barbiturate Screen Phencyclidine Screen Ur Amphetamines Screen MDMA (Ecstasy) Screen Benzodiazepines Screen Cocaine Screen U Marijuana (THC) Screen c-ANCA Proteinase 3 (PR3) p-ANCA Atypical p-ANCA Myeloperoxidase Ab COVID-19 (ROSY) S.cerevisiae IgG Ab S. cerevisiae IgG/IgA Home Medications Medication Instructions Recorded Famotidine [Pepcid] 20 mg PO BID #30 tablet 06/05/20 Ondansetron HCl [Zofran] 4 mg PO Q8H PRN #10 tablet 06/05/20 ASSESSMENT AND PLAN: 25 F THC induced cyclical vomiting syndrome H/o depression Anxiety GERD Plan: Cont. PPI, Zofran PRN for nausea Recommend strict abstinence from THC use, avoid ETOH use as well Patient under stress d/t grandmother being in hospital, denies SI/HI/AH/VH, ?psychologically induced vomiting Wanting to leave AMA and follow with PMD Dispo: Patient signed out of unit AMA
== END 2020-06-20 15:12 | disposition left against medical advice (07) | DRG 241 ==
LOC: JER 18:58 → JERBED 06-17 00:32 → J6S 06-17 03:26
PROVIDERS: ADMIT Internal Medicine
PROC: 0DB68ZX Excision of Stomach, Via Natural or Artificial Opening Endoscopic, Diagnostic (ICD-10-PCS; 2020-06-19)
PROC: 0DB98ZX Excision of Duodenum, Via Natural or Artificial Opening Endoscopic, Diagnostic (ICD-10-PCS; 2020-06-19)
PROC: 0DB58ZX Excision of Esophagus, Via Natural or Artificial Opening Endoscopic, Diagnostic (ICD-10-PCS; principal; 2020-06-19 08:00)
DX: K29.70 Gastritis, unspecified, without bleeding (principal); N39.0 Urinary tract infection, site not specified; F12.20 Cannabis dependence, uncomplicated; R10.31 Right lower quadrant pain; E87.6 Hypokalemia; K21.9 Gastro-esophageal reflux disease without esophagitis; R11.2 Nausea with vomiting, unspecified
CPT/HCPCS: 36415; 71045-TC-FY; 80053; 80307; 81003; 82784; 82941; 82962; 83520; 83690; 83735; 84110; 84155; 84165; 84703; 85025; 86038; 86140; 86256; 86334; 86671; 87077; 87086; 88305-TC; 93005; 93010; 99285-25; J0131; U0003

== ENCOUNTER 2020-09-24 16:03 | Inpatient (IN) | payer BC ==
[2020-09-24] MEDS ORDERED: ACETAMINOPHEN 1000 MG/100 ML VIAL (NON FORMULARY) IVPB ONE (16:40)
[2020-09-24] MEDS ORDERED: SODIUM CHLORIDE 0.9% 500 ML INFUS.BAG IV ONE ×2 (16:40→19:08)
[2020-09-24] MEDS ORDERED: ONDANSETRON 4 MG/2 ML VIAL IVPUSH ONE (16:41)
[2020-09-24] MEDS ORDERED: diazePAM CARPU-JECT 10 MG/2 ML DISP.SYRIN IVPUSH ONE ×2 (16:43→18:37)
[2020-09-24] MEDS ORDERED: MECLIZINE HCL 25 MG TABLET (FP) PO ONE (16:48)
--- NOTE | 2020-09-24 16:48 | PDOC ---
History of Present Illness - General Chief Complaint: Pain Stated Complaint: ABDOMINAL PAIN Time Seen by Provider: 09/24/20 16:34 - History of Present Illness Initial Comments: HPI: 09/24/20 16:45 25 yo F PMH marijuana use, PUD, gastritis, presenting with severe muscle spasms of abdomen into her neck. Reports progressively worsening spasms since Friday, associated with severe nausea and repeat episodes of vomiting with severe retching. Smoked marijuana the last two days with some relief of nausea, but without any relief of her spasms. Has never had these sorts of symptoms before. Endorses dizziness that she describes as identical to prior episode of vertigo. Denies CP, SOB, fevers/chills, constipation/diarrhea, urinary changes. LMP yesterday. ROS: GENERAL/CONSTITUTIONAL: denies fever, chills, diaphoresis, generalized weakness HEAD, EYES, EARS, NOSE AND THROAT: denies rhinorrhea, nasal congestion NEUROLOGIC: endorses dizziness. Denies headache, focal weakness, mental status changes CARDIOVASCULAR: denies chest pain, syncope, palpitations, irregular heart rate, lightheadedness RESPIRATORY: denies cough, shortness of breath, dyspnea with exertion, wheezing GASTROINTESTINAL: endorses nausea and vomiting. Denies abdominal pain, abdominal distension, diarrhea, constipation GENITOURINARY: denies dysuria, frequency, urgency MUSCULOSKELETAL: endorses muscle spasms all over her body, especially abdomen, low back, and neck SKIN: denies rash, itching PE: Gen: well-developed, well-nourished, appears distressed and in pain Neuro: AAOX4, CN II-XII intact, unable to track finger due to immediate nausea and dizziness HEENT: atraumatic, normocephalic, dry mucous membranes Neck: trachea midline, supple CV: regular rate, regular rhythm, no murmurs, rubs, or gallops Pulm: CTA b/l, no wheezing Abd: soft, non-distended, non-tender MSK: full ROM, intact pulses Extr: no edema, no deformities Skin: warm, dry MDM: Concern for muscle spasms, electrolyte abnormality, pain 2/2 retching, vertigo. - CBC, CMP - serum preg - Ofirmev - 1L NS - Valium 2.5 mg - meclizine 25 mg PO 09/24/20 17:36 CBC hemoconcentrated, CMP consistent with dehydration. 09/24/20 17:54 Reassessed, feeling better. Still complaining of mild pain and ongoing dizziness. Will continue to monitor. 09/24/20 18:37 Reassessed, once again screaming in pain, complaining of severe muscle spasms. Will give 2mg of morphine, 5 mg of Valium. 09/24/20 18:59 Patient signed out to night team. Follow up symptomatic improvement. If still having symptoms, admit. Past History - Medical History Allergies/Adverse Reactions: Allergies Allergy/AdvReac Type Severity Reaction Status Date / Time naproxen Allergy Verified 09/24/20 18:05 Home Medications: Ambulatory Orders NK [No Known Home Medication] 09/24/20 COPD: No GI Disorders: Yes (ulcer) - Reproductive History Is Patient Now?: No - Psycho-Social/Smoking History Smoking History: Never smoked Have you smoked in the past 12 months: No - Substance Abuse Hx (Audit-C & DAST Scrn) How often the patient has a drink containing alcohol: Never Score: In Men: 4 or > Positive; In Women: 3 or > Positive: 0 Screen Result (Pos requires Nsg. Audit-10AR): Negative *Physical Exam - Vital Signs Last Vital Signs Temp Pulse Resp BP Pulse Ox 98.3 F 92 H 18 115/76 100 09/24/20 16:14 09/24/20 16:14 09/24/20 16:14 09/24/20 16:14 09/24/20 16:14 ED Treatment Course - LABORATORY CBC & Chemistry Diagram: 09/25/20 07:10 09/25/20 07:10 Discharge - Discharge Information Problems reviewed: Yes Clinical Impression/Diagnosis: Muscle spasms of neck, Spasm of abdominal muscles Condition: Stable Disposition: AGAINST MEDICAL ADVICE - Follow up/Referral - Patient Discharge Instructions - Post Discharge Activity
--- OUTSIDE RECORDS SUMMARY | 2020-09-24 16:56 | XMS ---
:1995 Author Organization [facility] Care Team Providers Name Role Phone CATERINA MOY Unavailable Unavailable NÉSTOR ANA Unavailable Unavailable COCTONG MARIAH Unavailable Unavailable Re-disclosure Warning The records that you are about to access may contain information from federally- assisted alcohol or drug abuse programs. If such information is present, then the following federally mandated warning applies: This information has been disclosed to you from records protected by federal confidentiality rules (42 CFR part 2). The federal rules prohibit you from making any further disclosure of this information unless further disclosure is expressly permitted by the written consent of the person to whom it pertains or as otherwise permitted by 42 CFR part 2. A general authorization for the release of medical or other information is NOT sufficient for this purpose. The Federal rules restrict any use of the information to criminally investigate or prosecute any alcohol or drug abuse patient.The records that you are about to access may contain highly sensitive health information, the redisclosure of which is protected by Article 27-F of the [facility] Public Health law. If you continue you may haveaccess to information: Regarding HIV / AIDS; Provided by facilities licensed or operated by the [facility] Office of Mental Health; or Provided by the [facility] Office for People With Developmental Disabilities. If such information is present, then the following [facility] mandated warning applies: This information has been disclosed to you from confidential records which are protected by state law. State law prohibits you from making any further disclosure of this information without the specific written consent of the person to whom it pertains, or as otherwise permitted by law. Any unauthorized further disclosure in violation of state law may result in a fine or assisted sentence or both. A general authorization for the release of medical or other information is NOT sufficient authorization for further disclosure. Allergies and Adverse Reactions Type Description Substance Reaction Status Data Source(s ) Animal Allergy Cats Cats [facility] Encounters Encounter Providers Location Date Indications Data Source(s ) Outpatient 08/24/2019 ABDOMINAL PAIN, [facility] 09:15:00 PM [facility]ITTING [email or web address] ABDOMINAL PAIN, VOMITTING Emergency 08/24/2019 05:33:00 PM EDT VOMITTING 4 DAYS [facility] Corporati on VOMITTING 4 DAYS Outpatient Attender: CHINMAY, 07/22/2019 06:00:00 [facility] EDWARDAdmitter: AM EDT [facility] re SANJANA MOYDRUMRIGHT Corporat ion Inpatient 06/28/2019 12:38:00 VOMITING [facility] PM EDT - 07/01/2019 [facility] 03:00:00 PM EDT Corporati on VOMITING Emergency Attender: NÉSTOR 06/23/2019 07:57:00 [facility] VOM[facility] PAIN Emergency Attender: ABDULLAHI, 02/12/2019 09:51:00 LEFT ARM DOG [facility] TINAAdmitter: EUGENIO FERNANDO EDT BITE [facility] LEFT ARM DOG BITE Insurance Providers Payer name Policy type Policy ID Covered Covered republican's Policy P cassidy / Coverage republican ID relationship to [facility] Inf ormation type pena SELF PAY SP INSURANCE MEDICAID [id number] SP [id number] PENDING EXCHANGE Problems, Conditions, and Diagnoses Code Display Name Description Problem Type Effective Dates Data Source(s) Z87.11 Personal history PERSONAL HISTORY Diagnosis 08/24/2019 De[place]vi [place] of peptic ulcer OF PEPTIC ULCER 09:15:00 PM [facility] disease DISEASE Care Corporati on K92.0 Hematemesis HEMATEMESIS Diagnosis 08/24/2019 [place] 09:15:00 PM [facility] alth Care Corporati on F43.20 Adjustment ADJUSTMENT Diagnosis 08/24/2019 [place] disorder, DISORDER, 09:15:00 PM [facility] alth unspecified UNSPECIFIED Care Corpora tion 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 08/24/2019 [facility] stress disorder, STRESS DISORDER, 09:15:00 PM E [facility] unspecified UNSPECIFIED Care Corpora tion G47.00 Insomnia, INSOMNIA, Diagnosis 08/24/2019 [place] unspecified UNSPECIFIED 09:15:00 PM EDT [facility] Care Corporati on F41.9 Anxiety disorder, ANXIETY DISORDER, Diagnosis 08/24/2019 [place] unspecified UNSPECIFIED 09:15:00 PM EDT [facility] Care Corporati on R10.11 Right upper RIGHT UPPER Diagnosis 08/24/2019 [place] quadrant pain QUADRANT PAIN 09:15:00 PM EDT Cou [facility] Corporati on R10.9 Unspecified UNSPECIFIED Diagnosis 08/24/2019 [place] abdominal pain ABDOMINAL PAIN 09:15:00 [facility] Results ID Date Data Source [id number] 09/08/2020 11:20:00 AM EDT [facility] Name Value Range Interpretation Code Description Data Yain rce(s) Supporting Document(s ) Rapid Covid [facility] Test (Nasal Swab) This lab was ordered by Mendoza kennedy nd reported by M[facility] Galvin. ID Date Data Source [id number] 09/08/2020 12:04:00 AM EDT [facility] Name Value Range Interpretation Code Description Data Yani rce(s) Supporting Document(s ) SARS-COV-2 [facility] RNA RESP Diagnostics QL ROSY+PROBE This lab was ordered by MENDOZA kennedy nd reported by [facility]. ID Date Data Source [id number] 06/17/2020 01:10:00 AM EDT [facility] Name Value Range Interpretation Description Data Sup porting Code Source(s) Document(s ) SARS [facility] coronavirus 2 RNA This lab was ordered by [facility] and reported by [facility]. ID Date Data Source [id number] 08/26/2019 06:55:00 AM EDT [facility] [id number] Corporation Name Value Range Interpretation Description Data Sup porting Code Source(s) Document(s ) Leukocytes 2.5 k/mm3 4.5-10 <td> 08/26/2019 [place] [#/volume] in .8 06:55</td><td> County Blood by k/mm3 [facility] Automated count </td><td><Cira[employer]ova[employer] ion raph styleCode="Bold "> 2.5 L </paragraph>
(4.5-10.8) k/mm3 </td> Hemoglobin 11.3 g/dL 11.6-1 <td> 08/26/2019 [facility] [Mass/volume] 5.0 06:55</td><td> County in Blood g/dL [facility] </td><td><[address] raph styleCode="Bold "> 11.3 L </paragraph>
(11.6-15.0) g/dL </td> Erythrocytes 3.74 m/mm3 3.80-5 <td> 08/26/2019 [facility] r [#/volume] in .10 06:55</td><td> County Blood m/mm3 RBC Health Care </td><td><[address] raph styleCode="Bold "> 3.74 L </paragraph>
(3.80-5.10) m/mm3 </td> Hematocrit 32.9 % 36.0-4 <td> 08/26/2019 [place] [Volume 5.0 % 06:55</td><td> County Fraction] of HCT Health Care Blood by </td><td><[address] Automated count raph styleCode="Bold "> 32.9 L </paragraph>
(36.0-45.0) % </td> Erythrocyte 34.3 % 32.0-3 <td> 08/26/2019 [place] mean 6.0 % 06:55</td><td> County corpuscular MCHC </td><td> Health Care hemoglobin Corporation concentration 34.3 [Mass/volume] in Blood from
Fetus by (32.0-36.0) % Automated count </td> Erythrocyte 13.4 % 11.5-1 <td> 08/26/2019 [place] distribution 4.5 % 06:55</td><td> County width [Entitic RDW </td><td> Health Car e volume] by Corporation Automated count 13.4
(11.5-14.5) % </td> Erythrocyte 30.2 pg 27.0-3 <td> 08/26/2019 [place] mean 1.5 pg 06:55</td><td> [facility] corpuscular MCH </td><td> Health Care hemoglobin Corporation [Entitic mass] 30.2 by Automated count
(27.0-31.5) pg </td> Erythrocyte 88.0 fL 80.0-9 <td> 08/26/2019 [facility] mean 6.0 fL 06:55</td><td> [facility] corpuscular MCV </td><td> Health Care volume [Entitic Corporation volume] by 88.0 Automated count
(80.0-96.0) fL </td> Basophils+Eosin 0.3 % 0.0-5. <td> 08/24/2019 [facility] ophils+Monocyte 0 % 18:30</td><td> County s [#/volume] in Eosinophils Health Care Blood by </td><td> [employer] Automated count 0.3
(0.0-5.0) % </td> Basophils 0.6 % 0.0-2. <td> 08/24/2019 [facility] [#/volume] in 0 % 18:30</td><td> [facility] Blood by Basophils Health Care Automated count </td><td> [employer] 0.6
(0.0-2.0) % </td> Platelets 186 k/mm3 160-41 <td> 08/26/2019 [facility] [#/volume] in 0 06:55</td><td> [facility] Blood by k/mm3 Platelet Count Health Care Automated count </td><td> [employer] 186
(160-410) k/mm3 </td> Lymphocytes 32.4 % 18.0-5 <td> 08/24/2019 [facility] [#/volume] in 3.0 % 18:30</td><td> [facility] Blood by Lymphocytes Health Care Automated count </td><td> [employer] 32.4
(18.0-53.0) % </td> Monocytes/Leuko 7.2 % 0.0-11 <td> 08/24/2019 [facility] cytes [Pure .0 % 18:30</td><td> County number Monocytes. Health Care fraction] in </td><td> [employer] Blood by Automated count 7.2
(0.0-11.0) % </td> Platelet mean 11.3 fL 9.8-12 <td> 08/26/2019 [facility] r volume [Entitic .8 fL 06:55</td><td> County volume] in MPV </td><td> Health Care Blood by [employer] Automated count 11.3
(9.8-12.8) fL </td> Potassium 3.9 mEq/L 3.5-5. <td> 08/26/2019 [facility] [Moles/volume] 1 06:55</td><td> County in Serum or mEq/L Potassium-Serum Health Care Plasma </td><td> [employer] 3.9
(3.5-5.1) mEq/L </td> Sodium 133 mEq/L 135-14 <td> 08/26/2019 [facility] [Moles/volume] 5 06:55</td><td> County in Serum or mEq/L Sodium-Serum Health Care Plasma </td><td><jayy [employer] raph styleCode="Bold "> 133 L </paragraph>
(135-145) mEq/L </td> Chloride 104 mEq/L 98-107 <td> 08/26/2019 [facility] [Moles/volume] mEq/L 06:55</td><td> [facility] in Serum or Chloride Health Care Plasma </td><td> [employer] 104
(98-107) mEq/L </td> Immature 0.1 % 0.0-0. <td> 08/24/2019 [place] granulocytes/10 5 % 18:30</td><td> County 0 leukocytes in IG% </td><td> Health Ca re Blood by [employer] Automated count 0.1
(0.0-0.5) %
The IG fraction represents metamyelocytes, myelocytes and/or
promyelocytes and is only reported as part of the automated
differential when found at a percentage of less than 6.
If higher than 6%, a manual differential will be performed.

(0.0-0.5) % </td> Neutrophils [#] 59.4 % 36.0-7 <td> 08/24/2019 [facility] in Body fluid 3.0 % 18:30</td><td> County by Manual count Neutrophils Health Care </td><td> [facility] 59.4
(36.0-73.0) % </td> Glucose 49 mg/dL 70-105 <td> 08/26/2019 [facility] [Mass/volume] mg/dL 06:55</td><td> County in Blood Glucose-Serum Health Care </td><td><[address] raph styleCode="Bold "> 49 L </paragraph>
(70-105) mg/dL </td> Urea nitrogen 8 mg/dL 6-22 <td> 08/26/2019 [facility] r [Mass/volume] mg/dL 06:55</td><td> County in Blood BUN </td><td> [facility] 8
(6-22) mg/dL </td> Carbon dioxide, 16 mEq/L 22-30 <td> 08/26/2019 [facility] total mEq/L 06:55</td><td> County [Moles/volume] CO2 Health Care in Serum or </td><td><[address] Plasma raph styleCode="Bold "> 16 L </paragraph>
(22-30) mEq/L </td> Aspartate 16 U/L 4-35 <td> 08/24/2019 [place] aminotransferas U/L 18:30</td><td> County e [Enzymatic AST (SGOT) Health Care activity/volume </td><td> Corporation ] in Serum or Plasma 16
(4-35) U/L </td> Alanine 9 U/L 6-55 <td> 08/24/2019 [place] aminotransferas U/L 18:30</td><td> County e [Enzymatic ALT (SGPT) Health Care activity/volume </td><td> [employer] ] in Serum or Plasma 9
(6-55) U/L </td> Creatinine 0.64 mg/dL 0.57-1 <td> 08/26/2019 [facility] [Moles/volume] .11 06:55</td><td> County in Serum or mg/dL Creatinine. Health Care Plasma </td><td> [employer] 0.64
(0.57-1.11) mg/dL </td> Bilirubin.total 0.9 mg/dL 0.2-1. <td> 08/24/2019 [facility] [Mass/volume] 3 18:30</td><td> County in Blood mg/dL Bilirubin - [facility] [employer] </td><td> 0.9
(0.2-1.3) mg/dL </td> Calcium 8.2 mg/dL 8.6-10 <td> 08/26/2019 [place] [Mass/volume] .2 06:55</td><td> [place] in Blood mg/dL Calcium Health Care </td><td><jayy [employer] raph styleCode="Bold "> 8.2 L </paragraph>
(8.6-10.2) mg/dL </td> Proteins - 8.3 g/dL 6.4-8. <td> 08/24/2019 [place] Total 3 g/dL 18:30</td><td> County Proteins - Health [employer] </td><td> 8.3
(6.4-8.3) g/dL </td> Anion gap in 13 mEq/L 7-13 <td> 08/26/2019 [facility] Serum or Plasma mEq/L 06:55</td><td> County Anion Gap Health Care </td><td> [employer] 13
(7-13) mEq/L </td> Albumin 4.8 g/dL 3.4-4. <td> 08/24/2019 [facility] [Mass/volume] 8 g/dL 18:30</td><td> County in Serum or Albumin Health Care Plasma </td><td> [employer] 4.8
(3.4-4.8) g/dL </td> Globulin 3.5 gm/dL 2.9-4. <td> 08/24/2019 [place] [Mass/volume] 0 18:30</td><td> County in Serum gm/dL Globulin Health Care </td><td> [facility] 3.5
(2.9-4.0) gm/dL </td> Prothrombin 10.8 secs 9.8-12 <td> 08/24/2019 [place] time (PT) .0 18:30</td><td> County secs Prothrombin Health Care Time. [facility] </td><td> 10.8
(9.8-12.0) secs </td> Icteric index Non <td> 08/26/2019 [facility] r of Serum or Icteric 06:55</td><td> [facility] Plasma Icteric Index Health Care </td><td> [facility] Non Icteric
</td> aPTT panel - 30.7 secs 25.0-3 <td> 08/24/2019 [place] Platelet poor 2.0 18:30</td><td> [facility] plasma secs Partial [facility] Care Thromboplastin [facility] Time </td><td> 30.7
(25.0-32.0) secs </td> Phosphate 2.9 mg/dL 2.3-4. <td> 08/26/2019 [place] [Mass/volume] 7 06:55</td><td> [facility] in Serum or mg/dL Inorganic Health Care Plasma Phosphorus [facility] </td><td> 2.9
(2.3-4.7) mg/dL </td> Hemolysis index No <td> 08/26/2019 [facility] of Serum or Hemolysis 06:55</td><td> [facility] Plasma Hemolysis Index Health Care </td><td> [facility] No Hemolysis
</td> Lipemic index No Lipemia <td> 08/26/2019 [facility] er of Serum or 06:55</td><td> [facility] Plasma Lipemia Index Health Care </td><td> Corporation No Lipemia
</td> Urobilinogen 0.2 mg/dL 0.0-2. <td> 08/25/2019 [place] [Presence] in 0 02:40</td><td> [facility] Urine by mg/dL Urobilinogen Health Care Automated test </td><td> Corporation strip 0.2
(0.0-2.0) mg/dL </td> Glucose Negative <td> 08/25/2019 [place] [Presence] in 02:40</td><td> [facility] Urine by Test Glucose_ Health Care strip </td><td> Corporation Negative
(NEGATIVE) </td> Specific >1.035 <td> 08/25/2019 [place] gravity of 02:40</td><td> [facility] Urine by Test Specific Health Care strip [place] Corporation </td><td> >1.035
(1.000-1.035) </td> Protein 2+ (100 <td> 08/25/2019 [place] [Presence] in MG/DL) 02:40</td><td> [facility] Urine by Protein Health Care Automated test [employer]itative Corporation strip </td><td><jayy raph styleCode="Bold "> 2+ (100 MG/DL) * AB </paragraph>
(NEGATIVE) </td> Appearance of Slightly-C <td> 08/25/2019 [facility] er Urine loudy 02:40</td><td> [facility] Appearance Health Care </td><td><jayy Corporation raph styleCode="Bold "> Slightly-Cloudy * AB </paragraph>
(CLEAR) </td> Leukocyte Negative <td> 08/25/2019 [place] esterase 02:40</td><td> [facility] [Presence] in Leukocytes Health Care Urine by Test Esterase Corporation strip </td><td> Negative
(NEGATIVE) </td> Leukocytes 3 /HPF 0-5 <td> 08/25/2019 [place] [Presence] in /HPF 02:40</td><td> [facility] Urine by WBC </td><td> Health Care Automated Corporation 3
(0-5) /HPF </td> Bacteria NONE SEEN <td> 08/25/2019 [place] [#/area] in 02:40</td><td> [facility] Urine sediment Bacteria Health Care by Microscopy </td><td> [employer] high power field NONE SEEN
(NONE) /HPF </td> Bacteria MODERATE <td> 08/25/2019 [place] [#/area] in <= FEW 02:40</td><td> [facility] Urine sediment Epithelial Health Care by Microscopy naaptol high power </td><td> field MODERATE
<= FEW
<paragraph styleCode="Bold "> * AB </paragraph>
/LPF </td> Erythrocytes 3 /HPF 0-2 <td> 08/25/2019 [place] [#/area] in /HPF 02:40</td><td> [facility] Urine sediment RBC Health Care by Automated </td><td><jayy [employer] count raph styleCode="Bold "> 3 * AB </paragraph>
(0-2) /HPF </td> Nitrite Negative <td> 08/25/2019 [place] [Presence] in 02:40</td><td> [facility] Urine by Test Nitrites Health Care strip </td><td> [employer] Negative
(NEGATIVE) </td> Glucose 96 mg/dL 70-105 <td> 08/26/2019 [place] [Mass/volume] mg/dL 16:51</td><td> [facility] in Capillary Glucose - Health Care blood by Finger Stick [employer] Glucometer </td><td> 96
(70-105) mg/dL </td> Magnesium 1.9 mg/dL 1.6-2. <td> 08/26/2019 [place] [Mass/volume] 6 06:55</td><td> County in Serum or mg/dL Magnesium Level Health Care Plasma </td><td> Corporation 1.9
(1.6-2.6) mg/dL </td> Mucous MASSIVE <td> 08/25/2019 [place] <= FEW 02:40</td><td> [facility] </td><td><jayy Corporation raph styleCode="Bold "> MASSIVE * AB </paragraph><b r/> /LPF
<= FEW
*
/LPF </td> ID Date Data Source [id number] 08/24/2019 09:15:00 PM EDT [facility] [id number] Corporation Name Value Range Interpretation Description Data Sup porting Code Source(s) Document(s ) Abdomen (PACSIMAGE <td> 08/25/2019 [place] Limited 16:33</td><td> [facility] ) Abdomen Limited [facility] Final Result </td><td><paragra Corporat ion Name: afia VALADEZ, styleCode="Italics RASHINDA ">(PACSIMAGE Sex: F : )</paragraph>
1995
Final Location: F Result Admitting

Physician: Name: ROXANN VALADEZ Requesting
MRN: Physician: [id number] Sex: F BRAYDON BORGES
Exam: US : 1995 ABDOMEN Location: F LIMITED
08/25/2019 Admitting 17:09 Physician: ROXANN SANCHEZ STATEMENT:
Abdominal Requesting pain. Physician: BRAYDON BORGES Rule out

gallstones... Exam: US ABDOMEN LIMITED 08/25/2019 TECHNIQUE: 17:09 Sonogram of

the abdomen CLINICAL was STATEMENT: performed. Abdominal pain. Static images Vomiting. Rule out are gallstones... submitted for

review. TECHNIQUE: COMPARISON: Sonogram of the CT abdomen abdomen was and pelvis performed. Static 06/23/2019, images ultrasound
are abdomen submitted for 09/30/2013. review. FINDINGS:

The liver COMPARISON: CT is normal in abdomen and pelvis echotexture 06/23/2019, and measures ultrasound abdomen approximately
13.8 cm in 09/30/2013. length. There

is no intra FINDINGS: or

extrahepatic The liver is biliary normal in dilatation. echotexture and The common measures bile duct approximately measures 3
mm. The 13.8 cm in length. gallbladder There is no intra is or extrahepatic unremarkable. biliary No
gallstones, dilatation. The pericholecyst common bile duct ic fluid or measures 3 mm. gallbladder

wall The gallbladder thickening. is unremarkable. There is No gallstones, sonographic pericholecystic Torres
sign. fluid or The main gallbladder wall portal vein thickening. There is patent is sonographic with Torres appropriate
sign. direction of

flow The main measuring 80 portal vein is cm/s. patent with Visualized appropriate pancreas is direction of unremarkable.
flow measuring 80 IMPRESSION: cm/s. Normal

sonographic Visualized appearance of pancreas is the unremarkable. gallbladder without

biliary IMPRESSION: ductal

dilatation or Normal stones seen, sonographic however there appearance of the is a positive gallbladder sonographic without biliary Torres sign.
ductal dilatation Resident or stones seen, Radiologist: however there is a Moe positive Keven Conrad
Resident sonographic Torres Radiologistt sign. Attending

<br Radiologist: /> Resident Althea Villegas Radiologist: MD Moe Conrad MD Resident Radiologist: Radiologistt Althea Villegas
Attending Transcribed Radiologist: Date: Althea Villegas MD 08/25/2019
16:51 Finalizing Finalized Radiologist: Date: Althea Villegas MD 08/25/2019
17:16 Transcribed Date: 08/25/2019 16:51
Finalized Date: 08/25/2019 17:16

</td> Abdomen (PACSIMAGE <td> 08/24/2019 [facility] And 21:15</td><td> [facility] ) Abdomen Flat And Health Care Final Result Upright Corporation Name: </td><td><nimesh Perea styleCode="Italics ">(PACSIMAGE Sex: F : 1995 )</paragraph>
Location: F
Final Admitting Result Physician:

EMERGENCY Name: SEBAS VALADEZ Requesting
MRN: Physician: [id number] Sex: F JHON SEDHOM
Exam: : 1995 ABDOMEN WITH Location: F UPRIGHT
08/24/2019 Admitting 21:21 Physician: Clinical EMERGENCY SERVICE information:
Vomiting Requesting Comparison: Physician: JHON CT abdomen SEDHOM and pelvis

06/23/2019 Exam: ABDOMEN WITH abdominal UPRIGHT 08/24/2019 radiograph.. 21:21

Technique: Clinical Supine and information: upright Vomiting abdominal and

pelvic Comparison: CT radiographs.. abdomen and pelvis 06/23/2019 Findings: abdominal There is a radiograph.. nonobstructed

bowel gas Technique: Supine pattern. and upright There is gas abdominal and and stool pelvic within the radiographs.. colon and

rectum. Findings: There is no

free air. There is a IMPRESSION: nonobstructed bowel gas pattern. Nonobstructed There is gas and bowel gas
pattern. No stool within the free air. colon and rectum. Resident

Radiologist: There is no free Beau air. Veto DELGADO

Resident IMPRESSION: Radiologistt

Attending Nonobstructed Radiologist: bowel gas pattern. Cong Barber No free air. Finalizing

<br Radiologist: /> Resident Cong Barber Radiologist: MD Beau Laws MD Transcribed Resident Date: Radiologistt 08/24/2019
21:25 Attending Finalized Radiologist: Date: Cong Barber MD 08/24/2019
21:36 Finalizing Radiologist: Cogn Barber MD
Transcribed Date: 08/24/2019 21:25
Finalized Date: 08/24/2019 21:36

</td> Chest (PACSIMAGE <td> 08/24/2019 [facility] Portable 18:16</td><td> [facility] Chest Portable Health Care Final Result </td><td><paragrap Corporat ion Name: nimesh VALADEZ, styleCode="Rogelio JAMES ">(PACSIMAGE Sex: F : )</paragraph>
1995
Final Location: F Result Admitting

Phys[facility]: [facility]
MRN: Requesting [id number] Sex: F Physician:
JHON DAMIAN : 1995 Exam: Location: F CHEST
PORTABLE Admitting 08/24/2019 Physician: 18:43 EMERGENCY SERVICE Clinical
information: Requesting Sepsis Physician: JHON DAMIAN Comparison:

06/26/2019 Exam: CHEST Technique: PORTABLE Portable 08/24/2019 18:43 chest x-ray. Findings:

Normal Clinical cardiomediast information: inal Sepsis protocol gareth.

No Comparison: pneumothorax. 06/26/2019 No pleural

effusion. Technique: Clear lungs. Portable chest x-ray. Impression:

Clear Findings: lungs.

Resident Normal Radiologist: cardiomediastinal Beau servin. No Veto DELGADO pneumothorax. No Resident pleural Radiologistt
Attending effusion. Clear Radiologist: lungs. Cong Barber

Impression: Finalizing

Radiologist: Clear lungs. Cong Barber MD

<br Transcribed /> Resident Date: Radiologist: 08/24/2019 Beau Laws MD 18:50 Resident Finalized Radiologistt Date:
08/24/2019 Attending 18:53 Radiologist: Cong Barber MD
Finalizing Radiologist: Cong Barber MD
Transcribed Date: 08/24/2019 18:50
Finalized Date: 08/24/2019 18:53

</td> Procedure Vital Signs ID Date Data Source UNK Name Value Range Interpretation Code Description Data Source(s) First Respiration 18.0000 {} Normal (applies to 18.0000 {} [facility] rate Set non-numeric results) Coun ty Health Care Corporati on Heart rate 89.0000 {} Normal (applies to 89.0000 {} [place] alejandro non-numeric results) Coun ty Health Care Corporati on Diastolic blood 60 {} Normal (applies to 60 {} [place] pressure non-numeric results) Coun ty Health Care Corporati on Systolic blood 106 {} Normal (applies to 106 {} [place] pressure non-numeric results) Coun ty Health Care Corporati on Body temperature 99.4000 {} Normal (applies to 99.4000 {} [facility] non-numeric results) Coun ty Health Care Corporati on wt - obtain Normal (applies to {} [facility] may non-numeric results) Coun ty [facility] weight - kg 64.0500 {} Normal (applies to 64.0500 {} [facility] may non-numeric results) Coun ty [facility]
[2020-09-24] MEDS ORDERED: diazePAM CARPU-JECT 10 MG/2 ML DISP.SYRIN ONE ×2 (17:07→18:49)
[2020-09-24] MEDS ORDERED: MECLIZINE HCL 25 MG TABLET (FP) ONE (17:07)
[2020-09-24 17:09] LABS: EOS % 0.2 % (0-4.5); HEMATOCRIT 49.2 % (32.4-45.2); HEMOGLOBIN 16.7 GM/dL (10.7-15.3); LYMPH % 19.7 % (8-40); MCH 31.1 pg (25.7-33.7); MCHC 33.9 g/dl (32.0-36.0); MEAN CELL VOLUME 91.7 fl (80-96); MEAN PLT VOLUME 9.7 fl (7.5-11.1); MONO % 10.6 % (3.8-10.2); NEUT % 68.5 % (42.8-82.8); PLATELET COUNT 313 K/MM3 (134-434); RBC 5.37 M/mm3 (3.60-5.2); RDW 13.1 % (11.6-15.6); WHITE BLOOD COUNT 6.3 K/mm3 (4.0-10.0)
[2020-09-24 17:24] LABS: POTASSIUM 3.7 mmol/L (3.5-5.1)
[2020-09-24 17:26] LABS: ALBUMIN 5.8 g/dl (3.4-5.0); BLOOD UREA NITROGEN 16.6 mg/dL (7-18); CALCIUM 10.9 mg/dL (8.5-10.1)
[2020-09-24 17:30] LABS: CREATININE 0.9 mg/dL (0.55-1.3)
[2020-09-24 17:31] LABS: BILIRUBIN,TOTAL 1.4 mg/dL (0.2-1); TOT PROT 10.6 g/dl (6.4-8.2)
[2020-09-24] MEDS ORDERED: morphine CARPU-JECT 4 MG/1 ML DISP.SYRIN IVPUSH ONE (18:37)
[2020-09-24] MEDS ORDERED: MORPHINE SULFATE 2 MG/ML VIAL ONE (18:50)
--- NOTE | 2020-09-24 18:58 | PDOC ---
Documentation entered by Cherelle Trujillo SCRIBE, acting as scribe for Tierra oRque MD. Tierra Roque MD: This documentation has been prepared by the Yani malik Sydney, SCRIBE, under my direction and personally reviewed by me in its entirety. I confirm that the documentation accurately reflects all work, treatment, procedures, and medical decision making performed by me. Attending Attestation - Resident Resident Name: Charles Zee - ED Attending Attestation I have performed the following: I have examined & evaluated the patient, The case was reviewed & discussed with the resident, I agree w/resident's findings & plan, Exceptions are as noted - HPI HPI: 09/24/20 17:07 Patient is a 25 year old female with a significant past medical history of marijuana use, PUD who presents to the ED with progressively worsening muscle spasms of her abdomen since Friday. As per patient, her symptoms are associated with nausea and she endorses retching and multiple episodes of NBNB vomiting. She reports smoking marijuana the past two days with some relief of her nausea, but with no relief of her spasms. Patients last bowel movement was yesterday. Patient denies having similar symptoms in the past. Denies headache, fever, chills, shortness of breath, chest pain, diarrhea, or urinary changes. Allergies: Naproxen - Physicial Exam PE: 09/24/20 18:55 this 25 yo female with complaint of muscle spasms to abdomen,neck and dizziness head ncat neck supple lungs cta b/l cvs [id number] abdomen tenderness skin warm and dry extremities no deformities neuro axox3, motor strength 5/5 b/l - Medical Decision Making 09/24/20 22:20 pt received IVF , muscle relaxants ,pain meds but still had severe muscle cramping and therefore she was admitted for further w/u Discharge - Discharge Information Problems reviewed: Yes Clinical Impression/Diagnosis: Muscle spasms of neck, Spasm of abdominal muscles Condition: Stable - Follow up/Referral - Patient Discharge Instructions - Post Discharge Activity
--- NOTE | 2020-09-24 19:05 | PDOC ---
*Physical Exam - Vital Signs Last Vital Signs Temp Pulse Resp BP Pulse Ox 97.8 F 85 18 87/63 L 99 09/24/20 18:32 09/24/20 18:32 09/24/20 16:14 09/24/20 18:32 09/24/20 18:32 ED Treatment Course - LABORATORY CBC & Chemistry Diagram: 09/24/20 17:00 09/24/20 17:00 - ADDITIONAL ORDERS Additional order review: Laboratory Results 09/24/20 09/24/20 17:00 17:00 Sodium 129 L Potassium 3.7 Chloride 87 L Carbon Dioxide 28 Anion Gap 14 BUN 16.6 Creatinine 0.9 Est GFR (CKD-EPI)AfAm 101.56 Est GFR (CKD-EPI)NonAf 87.63 Random Glucose 96 Calcium 10.9 H Total Bilirubin 1.4 H AST 28 ALT 23 Alkaline Phosphatase 68 Total Protein 10.6 H Albumin 5.8 H Serum , Qual Negative 09/24/20 17:00 RBC 5.37 H MCV 91.7 MCHC 33.9 RDW 13.1 MPV 9.7 Neutrophils % 68.5 D Lymphocytes % 19.7 D Monocytes % 10.6 H Eosinophils % 0.2 D Basophils % 1.0 - Medications Given in the ED: ED Medications Discontinued Medications Generic Name Dose Route Start Last Admin Trade Name Itz PRN Reason Stop Dose Admin Acetaminophen 1,000 mg 09/24/20 16:40 09/24/20 16:45 Ofirmev Injection - IVPB 09/24/20 16:41 1,000 mg ONCE ONE Administration Diazepam 2.5 mg 09/24/20 16:43 09/24/20 17:10 Valium Injection - IVPUSH 09/24/20 16:44 2.5 mg ONCE ONE Administration Diazepam 5 mg 09/24/20 18:37 09/24/20 18:55 Valium Injection - IVPUSH 09/24/20 18:38 5 mg ONCE ONE Administration Meclizine HCl 25 mg 09/24/20 16:48 09/24/20 17:05 Antivert - PO 09/24/20 16:49 25 mg ONCE ONE Administration Morphine Sulfate 2 mg 09/24/20 18:37 09/24/20 18:50 Morphine Injection - IVPUSH 09/24/20 18:38 2 mg ONCE ONE Administration Ondansetron HCl 4 mg 09/24/20 16:41 09/24/20 17:10 Zofran Injection IVPUSH 09/24/20 16:42 4 mg ONCE ONE Administration Sodium Chloride 1,000 ml 09/24/20 16:40 09/24/20 16:45 Normal Saline - IV 09/24/20 16:41 1,000 ml ONCE ONE Administration Medical Decision Making - Medical Decision Making 09/24/20 19:04 Pt received on s/o from Dr. Zee. This is a 25 y/o female with PMH significant for peptic ulcer disease, marijuana use, cyclic vomiting syndrome, presenting today with muscle aches, neck and back pain, neck spasms, abdominal spasms, dizziness, nausea, vomiting. ED course: valium 2.5 x2, morphine, meclizine, tylenol, fluids Pending: pain control, reassess 09/24/20 20:41 Pt reassessed. Reports that her neck spasms and abdominal spasms improved slightly and have worsened. Will give 0.5 mg ativan and plan to admit. 09/24/20 22:02 Case d/w Dr. Cordova who accepts the patient for admission. Discharge - Discharge Information Problems reviewed: Yes Clinical Impression/Diagnosis: Muscle spasms of neck, Spasm of abdominal muscles Condition: Stable - Admission Yes - Follow up/Referral - Patient Discharge Instructions - Post Discharge Activity
--- NOTE | 2020-09-24 22:00 | HP ---
CHIEF COMPLAINT: Nausea & Vomiting PCP: None HISTORY OF PRESENT ILLNESS: 25 y.o. F PMHx of PUD, Gastritis and marijuana induced hyperemesis (2 prior visits in may for this) presenting due to persistent nausea vomiting since Friday. Patient states she had woken up Friday morning and began having multiple episodes of emesis 30-40 a day that has progressed to around 2 today. Patient states she had eat tacos on Friday night but otherwise has been unable to tolerate food. Earlier in the week she said she saw some blood in her emesis but it has been only clear liquid for the past few days. Patient states she has also been having muscle spasms in her abdomen, neck and calves that come in episodes. She states she smoked marijuana 2 days ago in an attempt to relieve the nausea she reports no marijuana use prior to the episodes of emesis. Patient states she does not feel much better than she did on Friday although the number of episodes of emesis have decreased in frequency. Patient admits to dizziness, difficulty walking due to weakness, nausea and vomiting. Denies headache, chest pain, sob, diarrhea. ER course was notable for: (1) Zofran 4mg, Meclizine 25mg (2) tylenol 1g, Morphine 2mg (3) Valium 5mg, Ativan 0.5mg, 2L NS Recent Travel: No PAST MEDICAL HISTORY: PUD, Gastritis and marijuana induced hyperemesis PAST SURGICAL HISTORY: No Social History: Smoking: No Alcohol: No Drugs: Marijuana Allergies naproxen Allergy (Verified 09/24/20 18:05) HOME MEDICATIONS: Home Medications Medication Instructions Recorded NK [No Known Home Medication] 09/24/20 REVIEW OF SYSTEMS CONSTITUTIONAL: loss of appetite, generalized weakness Absent: fever, chills, diaphoresis, malaise, weight change HEENT: Absent: rhinorrhea, nasal congestion, throat pain, throat swelling, difficulty swallowing, mouth swelling, ear pain, eye pain, visual changes CARDIOVASCULAR: Absent: chest pain, syncope, palpitations, irregular heart rate, lightheadedness, peripheral edema RESPIRATORY: Absent: cough, shortness of breath, dyspnea with exertion, orthopnea, wheezing, stridor, hemoptysis GASTROINTESTINAL: nausea, vomiting Absent: abdominal pain, abdominal distension, diarrhea, constipation, melena, hematochezia GENITOURINARY: Absent: dysuria, frequency, urgency, hesitancy, hematuria, flank pain, genital pain MUSCULOSKELETAL: Absent: myalgia, arthralgia, joint swelling, back pain, neck pain SKIN: Absent: rash, itching, pallor HEMATOLOGIC/IMMUNOLOGIC: Absent: easy bleeding, easy bruising, lymphadenopathy, frequent infections ENDOCRINE: Absent: unexplained weight gain, unexplained weight loss, heat intolerance, cold intolerance NEUROLOGIC: dizziness Absent: headache, focal weakness or paresthesias unsteady gait, seizure, mental status changes, bladder or bowel incontinence PSYCHIATRIC: Absent: anxiety, depression, suicidal or homicidal ideation, hallucinations. PHYSICAL EXAMINATION Vital Signs - 24 hr 09/24/20 09/24/20 09/24/20 16:14 18:20 18:32 Temperature 98.3 F 97.8 F Pulse Rate 92 H Pulse Rate [ 85 Right] Respiratory 18 Rate Blood Pressure 115/76 Blood Pressure 87/63 L [Left] O2 Sat by Pulse 100 98 99 Oximetry (%) 09/24/20 20:26 Temperature 98.4 F Pulse Rate Pulse Rate [ 79 Right] Respiratory 16 Rate Blood Pressure Blood Pressure 118/74 [Left] O2 Sat by Pulse Oximetry (%) GENERAL: Awake, alert, and fully oriented, in no acute distress. HEAD: Normal with no signs of trauma. EYES: Pupils equal, round and reactive to light, extraocular movements intact, sclera anicteric, conjunctiva clear. EARS, NOSE, THROAT: Oropharynx clear without exudates. Moist mucous membranes. NECK: No JVD, or masses. LUNGS: Breath sounds equal, clear to auscultation bilaterally. No wheezes, and no crackles. No accessory muscle use. HEART: Regular rate and rhythm, normal S1 and S2 without murmur, rub or gallop. ABDOMEN: Soft, nontender, not distended, normoactive bowel sounds, no guarding, no rebound, no masses. MUSCULOSKELETAL: Normal range of motion at all joints. No bony deformities or tenderness. No CVA tenderness. Diffuse muscle spasms of the abdomen and b/l LE UPPER EXTREMITIES: 2+ pulses, warm, well-perfused. No cyanosis. No clubbing. No peripheral edema. LOWER EXTREMITIES: 2+ pulses, warm, well-perfused. No calf tenderness. No peripheral edema. NEUROLOGICAL: Cranial nerves II-XII intact. Normal speech. PSYCHIATRIC: Cooperative. Good eye contact. Appropriate mood and affect. SKIN: Warm, dry, normal turgor, no rashes or lesions noted. Laboratory Results - last 24 hr 09/24/20 09/24/20 09/24/20 17:00 17:00 17:00 WBC 6.3 RBC 5.37 H Hgb 16.7 H Hct 49.2 H D MCV 91.7 MCH 31.1 MCHC 33.9 RDW 13.1 Plt Count 313 D MPV 9.7 Absolute Neuts (auto) 4.3 Neutrophils % 68.5 D Lymphocytes % 19.7 D Monocytes % 10.6 H Eosinophils % 0.2 D Basophils % 1.0 Nucleated RBC % 0 Sodium 129 L Potassium 3.7 Chloride 87 L Carbon Dioxide 28 Anion Gap 14 BUN 16.6 Creatinine 0.9 Est GFR (CKD-EPI)AfAm 101.56 Est GFR (CKD-EPI)NonAf 87.63 Random Glucose 96 Calcium 10.9 H Total Bilirubin 1.4 H AST 28 ALT 23 Alkaline Phosphatase 68 Total Protein 10.6 H Albumin 5.8 H Serum , Qual Negative ASSESSMENT/PLAN: 25 y.o. F PMHx of PUD, Gastritis and marijuana induced hyperemesis (2 prior visits in may for this) presenting due to persistent nausea vomiting since Friday. # Abdominal pain w/ hyperemesis - Hydrate w/ IVF - Nausea Reglan 10mg or 5mg Compazine; Hold Zofran - Pain: Ofirmev 1g Q6 - Prior EKG QTc 449ms, Currently 491ms - EKG NSR rate 73 # Hyponatremia - Na 129, 6-8 per 24hr period, risk of osmotic demyelination - D5NS + 40K - Repeat CMP - Vitals stable # Hyperbilirubinemia - T bili 1.4 - Direct bili - Likely secondary to dehydration and emesis # FEN - Fluids: D5NS @ 83mL/hr - Diet: Regular diet as tolerated - Cont. to monitor and replete as appropriate # DVT ppx - Lovenox: 40 sq Daily - SCD'S - Early ambulation # Disposition - Admit to med-surg Family Medical History Family History: As Documented Visit type - Emergency Visit Emergency Visit: Yes ED Registration Date: 09/24/20 Care time: The patient presented to the Emergency Department on the above date and was hospitalized for further evaluation of their emergent condition. - New Patient This patient is new to me today: Yes Date on this admission: 09/25/20 - Critical Care Critical Care patient: No ATTENDING PHYSICIAN STATEMENT I saw and evaluated the patient. I reviewed the resident's note and discussed the case with the resident. I agree with the resident's findings and plan as documented. SUBJECTIVE: OBJECTIVE: ASSESSMENT AND PLAN:
[2020-09-24] MEDS ORDERED: LORazepam 2 MG/ML SDV VIAL ONE (22:09)
--- OUTSIDE RECORDS SUMMARY | 2020-09-24 22:14 | XMS ---
:1995 Author Organization [facility] Care Team Providers Name Role Phone CATERINA MOY Unavailable Unavailable ANA PALM Unavailable Unavailable ABDULLAHI MARIAH Unavailable Unavailable Re-disclosure Warning The records [...] is protected by Article 27-F of the [facility] Public Health law. If you continue you may haveaccess to information: Regarding HIV / AIDS; Provided by facilities licensed or operated by the [facility] Office of Mental Health; or Provided by the [facility] Office for People With Developmental Disabilities. If such information is present, then the following [facility] mandated warning applies: This information has been [...] law may result in a fine or [place] health care facility sentence or both. A general authorization for the release of medical or other information is NOT sufficient authorization for further disclosure. Allergies and Adverse Reactions Type Description Substance Reaction Status Data Source(s ) Animal Allergy Cats Cats [facility] Encounters Encounter Providers Location Date Indications Data Source(s ) Outpatient 08/24/2019 ABDOMINAL PAIN, [facility] 09:15:00 PM VOMITTING [facility] EDT [facility] ABDOMINAL PAIN, VOMITTING Emergency 08/24/2019 05:33:00 PM EDT VOMITTING 4 DAYS [facility] Corporati on VOMITTING 4 DAYS Outpatient Attender: CHINMAY, 07/22/2019 06:00:00 [facility] EDWARDAdmitter: AM EDT Health [facility] [place] Corpor[facility] Inpatient 06/28/2019 12:38:00 VOMITING [facility] PM EDT - 07/01/2019 [facility] 03:[facility]:00 PM EDT Corporati on VOMITING Emergency Attender: NÉSTOR 06/23/2019 07:57:[facility] VOM[facility] PAIN Emergency Attender: ABDULLAHI, 02/12/2019 09:51:00 LEFT ARM DOG [facility] TINAAdmitter: EUGENIO FERNANDO EDT BITE [facility] LEFT ARM DOG BITE Insurance Providers Payer name Policy type Policy ID Covered Covered republican's Policy P cassidy / Coverage republican ID relationship to Pena Inf ormation type pena BC OUT OF [id number] [facility] 55 SELF PAY SP INSURANCE MEDICAID [id number] SP [id number] PENDING EXCHANGE Problems, Conditions, and Diagnoses Code Display Name Description Problem Type Effective Dates Data Source(s) Z87.11 Personal history PERSONAL HISTORY Diagnosis 08/24/2019 Devyi singer of peptic ulcer OF PEPTIC ULCER 09:15:00 PM [facility] Health disease DISEASE Care Corporati on K92.0 Hematemesis HEMATEMESIS Diagnosis 08/24/2019 [place] 09:15:00 [facility] Care Corporati on F43.20 Adjustment ADJUSTMENT Diagnosis 08/24/2019 [place] disorder, DISORDER, 09:15:00 PM EDT [facility] unspecified UNSPECIFIED Care Corpora tion 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 08/24/2019 [facility] stress disorder, STRESS DISORDER, 09:15:00 PM [facility] unspecified UNSPECIFIED Care Corpora tion G47.00 Insomnia, INSOMNIA, Diagnosis 08/24/2019 [place] unspecified UNSPECIFIED 09:15:00 PM EDT [facility] Care Corporati on F41.9 Anxiety disorder, ANXIETY DISORDER, Diagnosis 08/24/2019 [place] unspecified UNSPECIFIED 09:15:00 PM EDT [facility] Care Corporati on R10.11 Right upper RIGHT UPPER Diagnosis 08/24/2019 [place] quadrant pain QUADRANT PAIN 09:15:00 PM EDT [facility] Care Corporati on R10.9 Unspecified UNSPECIFIED Diagnosis 08/24/2019 [place] abdominal pain [facility]BDOMINAL PAIN 09:15:00 [facility] Results ID Date Data Source [id number] 09/08/2020 11:20:00 AM EDT [facility] Name Value Range Interpretation Code Description Data Yani rce(s) Supporting Document(s ) Rapid Covid [facility] Test (Nasal Swab) This lab was ordered by Mendoza kennedy nd reported by [facility]. ID Date Data Source [id number] 09/08/2020 12:04:00 AM EDT [facility] Name Value Range Interpretation Code Description Data Yani rce(s) Supporting Document(s ) SARS-COV-2 [facility] RNA RESP Diagnostics QL ROSY+PROBE This lab was ordered by MENDZOA kennedy nd reported by [facility]. ID Date Data Source [id number] 06/17/2020 01:10:00 AM EDT [facility] Name Value Range Interpretation Description Data Sup porting Code Source(s) Document(s ) SARS [facility] coronavirus 2 RNA This lab was ordered by [facility] and reported by [facility]. ID Date Data Source [id number] 08/26/2019 06:55:00 AM EDT [facility] [id number] Corporation Name Value Range Interpretation Description Data Sup porting Code Source(s) Document(s ) Leukocytes 2.5 k/mm3 4.5-10 <td> 08/26/2019 [place] [#/volume] in .8 06:55</td><td> County Blood by k/mm3 [facility] Automated count </td><td><jayy [employer] raph styleCode="Bold "> 2.5 L </paragraph>
(4.5-10.8) k/mm3 </td> Hemoglobin 11.3 g/dL 11.6-1 <td> 08/26/2019 [place] [Mass/volume] 5.0 06:55</td><td> County in Blood g/dL [facility] </td><td><[employer] Corporation raph styleCode="Bold "> 11.3 L </paragraph>
(11.6-15.0) g/dL </td> Erythrocytes 3.74 m/mm3 3.80-5 <td> 08/26/2019 [facility] [#/volume] in .10 06:55</td><td> County Blood m/mm3 RBC Health Care </td><td><[employer] raph styleCode="Bold "> 3.74 L </paragraph>
(3.80-5.10) m/mm3 </td> Hematocrit 32.9 % 36.0-4 <td> 08/26/2019 [place] [Volume 5.0 % 06:55</td><td> County Fraction] of HCT Health Care Blood by </td><td><[employer] Automated count raph styleCode="Bold "> 32.9 L </paragraph>
(36.0-45.0) % </td> Erythrocyte 34.3 % 32.0-3 <td> 08/26/2019 [place] mean 6.0 % 06:55</td><td> County corpuscular MCHC </td><td> Health Care hemoglobin Corporation concentration 34.3 [Mass/volume] in Blood from
Fetus by (32.0-36.0) % Automated count </td> Erythrocyte 13.4 % 11.5-1 <td> 08/26/2019 [place] distribution 4.5 % 06:55</td><td> County width [Entitic RDW </td><td> Health Car e volume] by [employer] Automated count 13.4
(11.5-14.5) % </td> Erythrocyte 30.2 pg 27.0-3 <td> 08/26/2019 [place] mean 1.5 pg 06:55</td><td> [facility] corpuscular MCH </td><td> Health Care hemoglobin Corporation [Entitic mass] 30.2 by Automated count
(27.0-31.5) pg </td> Erythrocyte 88.0 fL 80.0-9 <td> 08/26/2019 [place] mean 6.0 fL 06:55</td><td> [facility] corpuscular MCV </td><td> Health Care volume [[employer] volume] by 88.0 Automated count
(80.0-96.0) fL </td> Basophils+Eosin 0.3 % 0.0-5. <td> 08/24/2019 [facility] ophils+Monocyte 0 % 18:30</td><td> County s [#/volume] in Eosinophils Health Care Blood by </td><td> [employer] Automated count 0.3
(0.0-5.0) % </td> Basophils 0.6 % 0.0-2. <td> 08/24/2019 [place] [#/volume] in 0 % 18:30</td><td> [facility] Blood by Basophils Health Care Automated count </td><td> [employer] 0.6
(0.0-2.0) % </td> Platelets 186 k/mm3 160-41 <td> 08/26/2019 [place] [#/volume] in 0 06:55</td><td> County Blood by k/mm3 Platelet Count Health Care Automated count </td><td> [employer] 186
(160-410) k/mm3 </td> Lymphocytes 32.4 % 18.0-5 <td> 08/24/2019 [place] [#/volume] in 3.0 % 18:30</td><td> [facility] Blood by Lymphocytes Health Care Automated count </td><td> [employer] 32.4
(18.0-53.0) % </td> Monocytes/Leuko 7.2 % 0.0-11 <td> 08/24/2019 [facility] cytes [Pure .0 % 18:30</td><td> County number Monocytes. Health Care fraction] in </td><td> Corporation Blood by Automated count 7.2
(0.0-11.0) % </td> Platelet mean 11.3 fL 9.8-12 <td> 08/26/2019 [facility] r volume [Entitic .8 fL 06:55</td><td> County volume] in MPV </td><td> Health Care Blood by [employer] Automated count 11.3
(9.8-12.8) fL </td> Potassium 3.9 mEq/L 3.5-5. <td> 08/26/2019 [place] [Moles/volume] 1 06:55</td><td> County in Serum or mEq/L Potassium-Serum Health Care Plasma </td><td> [employer] 3.9
(3.5-5.1) mEq/L </td> Sodium 133 mEq/L 135-14 <td> 08/26/2019 [place] [Moles/volume] 5 06:55</td><td> County in Serum or mEq/L Sodium-Serum Health Care Plasma </td><td><jayy [employer] raph styleCode="Bold "> 133 L </paragraph>
(135-145) mEq/L </td> Chloride 104 mEq/L 98-107 <td> 08/26/2019 [place] [Moles/volume] mEq/L 06:55</td><td> County in Serum or Chloride Health Care Plasma </td><td> [employer] 104
(98-107) mEq/L </td> Immature 0.1 % 0.0-0. <td> 08/24/2019 [place] granulocytes/10 5 % 18:30</td><td> County 0 leukocytes in IG% </td><td> Health Ca re Blood by [employer] Automated count 0.1
(0.0-0.5) %
The IG fraction represents metamyelocytes, myelocytes and/or
promyelocytes and is only reported as part of the automated
differential when found at a percentage of less than 6.
If higher than 6%, a manual differential will be performed.

(0.0-0.5) % </td> Neutrophils [#] 59.4 % 36.0-7 <td> 08/24/2019 [facility] in Body fluid 3.0 % 18:30</td><td> County by Manual count Neutrophils Health Care </td><td> Corporation 59.4
(36.0-73.0) % </td> Glucose 49 mg/dL 70-105 <td> 08/26/2019 [place] [Mass/volume] mg/dL 06:55</td><td> County in Blood Glucose-Serum Health Care </td><td><[employer] raph styleCode="Bold "> 49 L </paragraph>
(70-105) mg/dL </td> Urea nitrogen 8 mg/dL 6-22 <td> 08/26/2019 [facility] r [Mass/volume] mg/dL 06:55</td><td> County in Blood BUN </td><td> Health Care [facility] 8
(6-22) mg/dL </td> Carbon dioxide, 16 mEq/L 22-30 <td> 08/26/2019 [facility] total mEq/L 06:55</td><td> [facility] [Moles/volume] CO2 Health Care in Serum or </td><td><[employer] Plasma raph styleCode="Bold "> 16 L </paragraph>
(22-30) mEq/L </td> Aspartate 16 U/L 4-35 <td> 08/24/2019 [place] aminotransferas U/L 18:30</td><td> County e [Enzymatic AST (SGOT) Health Care activity/volume </td><td> Corporation ] in Serum or Plasma 16
(4-35) U/L </td> Alanine 9 U/L 6-55 <td> 08/24/2019 [place] aminotransferas U/L 18:30</td><td> County e [Enzymatic ALT (SGPT) Health Care activity/volume </td><td> [employer] ] in Serum or Plasma 9
(6-55) U/L </td> Creatinine 0.64 mg/dL 0.57-1 <td> 08/26/2019 [place] [Moles/volume] .11 06:55</td><td> County in Serum or mg/dL Creatinine. Health Care Plasma </td><td> [employer] 0.64
(0.57-1.11) mg/dL </td> Bilirubin.total 0.9 mg/dL 0.2-1. <td> 08/24/2019 [facility] [Mass/volume] 3 18:30</td><td> County in Blood mg/dL Bilirubin - [employer] </td><td> 0.9
(0.2-1.3) mg/dL </td> Calcium 8.2 mg/dL 8.6-10 <td> 08/26/2019 [place] [Mass/volume] .2 06:55</td><td> County in Blood mg/dL Calcium Health Care </td><td><jayy [employer] raph styleCode="Bold "> 8.2 L </paragraph>
(8.6-10.2) mg/dL </td> Proteins - 8.3 g/dL 6.4-8. <td> 08/24/2019 [place] Total 3 g/dL 18:30</td><td> County Proteins - Health [employer] </td><td> 8.3
(6.4-8.3) g/dL </td> Anion gap in 13 mEq/L 7-13 <td> 08/26/2019 [place] Serum or Plasma mEq/L 06:55</td><td> County Anion Gap Health Care </td><td> [employer] 13
(7-13) mEq/L </td> Albumin 4.8 g/dL 3.4-4. <td> 08/24/2019 [place] [Mass/volume] 8 g/dL 18:30</td><td> County in Serum or Albumin Health Care Plasma </td><td> [employer] 4.8
(3.4-4.8) g/dL </td> Globulin 3.5 gm/dL 2.9-4. <td> 08/24/2019 [place] [Mass/volume] 0 18:30</td><td> County in Serum gm/dL Globulin Health Care </td><td> [employer] 3.5
(2.9-4.0) gm/dL </td> Prothrombin 10.8 secs 9.8-12 <td> 08/24/2019 [place] time (PT) .0 18:30</td><td> [facility] secs Prothrombin Health Care Time. [facility] </td><td> 10.8
(9.8-12.0) secs </td> Icteric index Non <td> 08/26/2019 [facility] r of Serum or Icteric 06:55</td><td> [facility] Plasma Icteric Index Health [facility] </td><td> [facility] Non Icteric
</td> aPTT panel - 30.7 secs 25.0-3 <td> 08/24/2019 [place] Platelet poor 2.0 18:30</td><td> [facility] plasma secs Partial [facility] Thromboplastin [facility] Time </td><td> 30.7
(25.0-32.0) secs </td> Phosphate 2.9 mg/dL 2.3-4. <td> 08/26/2019 [place] [Mass/volume] 7 06:55</td><td> [facility] in Serum or mg/dL Inorganic Health Care Plasma Phosphorus [facility] </td><td> 2.9
(2.3-4.7) mg/dL </td> Hemolysis index No <td> 08/26/2019 [facility] of Serum or Hemolysis 06:55</td><td> [facility] Plasma Hemolysis Index Health Care </td><td> [employer] No Hemolysis
</td> Lipemic index No Lipemia <td> 08/26/2019 [facility] er of Serum or 06:55</td><td> [facility] Plasma Lipemia Index Health Care </td><td> Corporation No Lipemia
</td> Urobilinogen 0.2 mg/dL 0.0-2. <td> 08/25/2019 [place] [Presence] in 0 02:40</td><td> [facility] Urine by mg/dL Urobilinogen Health Care Automated test </td><td> Corporation strip 0.2
(0.0-2.0) mg/dL </td> Glucose Negative <td> 08/25/2019 [place] [Presence] in 02:40</td><td> [facility] Urine by Test Glucose_ Health Care strip </td><td> Corporation Negative
(NEGATIVE) </td> Specific >1.035 <td> 08/25/2019 [place] gravity of 02:40</td><td> [facility] Urine by Test Specific Health Care strip [employer] </td><td> >1.035
(1.000-1.035) </td> Protein 2+ (100 <td> 08/25/2019 [place] [Presence] in MG/DL) 02:40</td><td> [facility] Urine by Protein Health Care Automated test [employer] strip </td><td><jayy raph styleCode="Bold "> 2+ (100 MG/DL) * AB </paragraph>
(NEGATIVE) </td> Appearance of Slightly-C <td> 08/25/2019 [facility] Urine loudy 02:40</td><td> [facility] Appearance Health Care </td><td><jayy Corporation raph styleCode="Bold "> Slightly-Cloudy * AB </paragraph>
(CLEAR) </td> Leukocyte Negative <td> 08/25/2019 [place] esterase 02:40</td><td> [facility] [Presence] in Leukocytes Health Care Urine by Test [employer] Corporation strip </td><td> Negative
(NEGATIVE) </td> Leukocytes 3 /HPF 0-5 <td> 08/25/2019 [place] [Presence] in /HPF 02:40</td><td> [facility] Urine by WBC </td><td> Health Care Automated Corporation 3
(0-5) /HPF </td> Bacteria NONE SEEN <td> 08/25/2019 [place] [#/area] in 02:40</td><td> [facility] Urine sediment Bacteria Health Care by Microscopy </td><td> Corporation high power field NONE SEEN
(NONE) /HPF </td> Bacteria MODERATE <td> 08/25/2019 [place] [#/area] in <= FEW 02:40</td><td> [facility] Urine sediment Epithelial Health Care by Microscopy [employer] high power </td><td> field MODERATE
<= FEW
<paragraph styleCode="Bold "> * AB </paragraph>
/LPF </td> Erythrocytes 3 /HPF 0-2 <td> 08/25/2019 [place] [#/area] in /HPF 02:40</td><td> [facility] Urine sediment RBC Health Care by Automated </td><td><jayy [employer] count raph styleCode="Bold "> 3 * AB </paragraph>
(0-2) /HPF </td> Nitrite Negative <td> 08/25/2019 [place] [Presence] in 02:40</td><td> [facility] Urine by Test Nitrites Health Care strip </td><td> Corporation Negative
(NEGATIVE) </td> Glucose 96 mg/dL 70-105 <td> 08/26/2019 [place] [Mass/volume] mg/dL 16:51</td><td> [facility] in Capillary Glucose - Health Care blood by Finger Stick [employer] Glucometer </td><td> 96
(70-105) mg/dL </td> Magnesium 1.9 mg/dL 1.6-2. <td> 08/26/2019 [place] [Mass/volume] 6 06:55</td><td> County in Serum or mg/dL Magnesium Level Health Care Plasma </td><td> Corporation 1.9
(1.6-2.6) mg/dL </td> Mucous MASSIVE <td> 08/25/2019 [place] <= FEW 02:40</td><td> [facility] </td><td><jayy Corporation raph styleCode="Bold "> MASSIVE * AB </paragraph><b r/> /LPF
<= FEW
*
/LPF </td> ID Date Data Source [id number] 08/24/2019 09:15:00 PM EDT [facility] [id number] Corporation Name Value Range Interpretation Description Data Sup porting Code Source(s) Document(s ) Abdomen (PACSIMAGE <td> 08/25/2019 [place] Limited 16:33</td><td> [facility] ) Abdomen Limited [facility] Final Result </td><td><paragra Corporat ion Name: afia ALLYSON styleCode="Rogelio JAMES ">(PACSIMAGE Sex: F : )</paragraph>
1995
Final Location: F Result Admitting

Physician: Name: ROXANN VALADEZ Requesting
MRN: Physician: [id number] Sex: F BRAYDON BORGES
Exam: US : [...] 08/25/2019 17:16

</td> Abdomen (PACSIMAGE <td> 08/24/2019 [place] Flat And 21:15</td><td> [facility] ) Abdomen Flat And Health Care Final Result [employer] Corporation Name: </td><td><nimesh Perea styleCode="Italics ">(PACSIMAGE Sex: F : 1995 )</paragraph>
Location: F
Final Admitting Result Physician:

EMERGENCY Name: SEBAS VALADEZ Requesting
MRN: Physician: [id number] Sex: F JHON SEDHOM
Exam: : 1995 [...] Cong Barber MD 08/24/2019
21:36 Finalizing Radiologist: Cong Barber MD
Transcribed Date: 08/24/2019 21:25
Finalized Date: 08/24/2019 21:36

</td> Chest (PACSIMAGE <td> 08/24/2019 [place] Portable 18:16</td><td> [facility] Chest Portable Health Care Final Result </td><td><paragrap Corporat ion Name: nimesh VALADEZ, styleCode="Italics RASHBRANDTA ">(PACSIMAGE Sex: F : )</paragraph>
1995
Final Location: F Result Admitting

Physician: Name: ALLYSON EMERGENCY RASHINDA SERVICE
MRN: Requesting [id number] Sex: F Physician:
JHON DAMIAN : 1995 [...] 18.0000 {} Normal (applies to 18.0000 {} [place] rate Set non-numeric results) Coun ty Health [...] 99.4000 {} Normal (applies to 99.4000 {} [place] non-numeric results) Coun ty Health Care Corporati on wt - obtain Normal (applies to {} [facility] may non-numeric results) Coun ty Health Care Corporati on weight - kg 64.0500 {} Normal (applies to 64.0500 {} [facility] may non-numeric results) Coun ty Health Care Corporati on
--- NOTE | 2020-09-24 22:42 | PN ---
Teaching Attending Note Name of Resident: Chon Cordova ATTENDING PHYSICIAN STATEMENT I saw and evaluated the patient. I reviewed the resident's note and discussed the case with the resident. I agree with the resident's findings and plan as documented. SUBJECTIVE: 25yoF with h/o PUD, gastritis, marijuana dependency, and multiple prior admi ssions with intractable vomiting who presents with nausea and vomiting x6 days with progressive cramping and abdominal pain. Patient reports initially having up to 30-40 episodes in a day, has improved to 2-3 episodes but has also been tolerating only sips of liquids during that time. Today she began feeling lightheaded and developed a headache along with severe abdominal and neck spasms and presented to the ED. She saw some streaks of blood in her vomit a few days ago which has resolved. Denies fever, chills, diarrhea, melena, hematochezia. Patient was initially hypotensive to 87/63 on arrival tot he ED. Labs notable for Hgb 16.7, Na 129, K 3.7 but hemolyzed, and elevated calcium and albumin. She received 3L NS bolus in addition to meclizine, diazepam, Zofran, and lorazepam with some improvement in symptoms. Admitted for further management. OBJECTIVE: Vital Signs - 24 hr 09/24/20 09/24/20 09/24/20 16:14 18:20 18:32 Temperature 98.3 F 97.8 F Pulse Rate 92 H Pulse Rate [ 85 Right] Respiratory 18 Rate Blood Pressure 115/76 Blood Pressure 87/63 L [Left] O2 Sat by Pulse 100 98 99 Oximetry (%) 09/24/20 20:26 Temperature 98.4 F Pulse Rate Pulse Rate [ 79 Right] Respiratory 16 Rate Blood Pressure Blood Pressure 118/74 [Left] O2 Sat by Pulse Oximetry (%) EXAM Gen: awake, alert, NAD. HEENT: NC/AT. Anicteric sclera CV: RRR, no MRG appreciated Resp: CTAB, unlabored Abd: Diffuse tenderness to deep palpation, no rebound/guarding. +BS Ext: No edema Neuro: CN II-XII grossly intact. Psych: AOx3, appropriate mood/affect Laboratory Results - last 24 hr 09/24/20 09/24/20 09/24/20 17:00 17:00 17:00 WBC 6.3 RBC 5.37 H Hgb 16.7 H Hct 49.2 H D MCV 91.7 MCH 31.1 MCHC 33.9 RDW 13.1 Plt Count 313 D MPV 9.7 Absolute Neuts (auto) 4.3 Neutrophils % 68.5 D Lymphocytes % 19.7 D Monocytes % 10.6 H Eosinophils % 0.2 D Basophils % 1.0 Nucleated RBC % 0 Sodium 129 L Potassium 3.7 Chloride 87 L Carbon Dioxide 28 Anion Gap 14 BUN 16.6 Creatinine 0.9 Est GFR (CKD-EPI)AfAm 101.56 Est GFR (CKD-EPI)NonAf 87.63 Random Glucose 96 Calcium 10.9 H Total Bilirubin 1.4 H AST 28 ALT 23 Alkaline Phosphatase 68 Total Protein 10.6 H Albumin 5.8 H Serum , Qual Negative ASSESSMENT AND PLAN: 25yoF with h/o PUD, gastritis, marijuana dependency, and multiple prior admissions with intractable vomiting who presents with nausea and vomiting x6 days with progressive cramping and abdominal pain likely secondary to cannabinoid hyperemesis with dehydration and electrolyte derangements. Nausea, vomiting, abd pain Likely recurrence of cannabinoid hyperemesis No further emesis since arrival Had an episode of hematemesis that has resolved, likely from esophageal or posterior oropharyngeal irritation Abd exam reassuring, imaging deferred - Zofran or compazine if QTc prolonged - CLD, advance as tolerated Dehydration Elevated hgb, albumin, calcium in addition to hyponatremia/hypochloremia can be attributed to dehydration in setting of GI losses and poor PO intake s/p 3L NS in ED - rpt CMP now, monitor sodium to avoid overrapid correction - continue IVF Muscle cramping In setting of dehydration, retching, electrolyte abnormalitis - check mag, phos - replete K - hemolyzed on initial sample - consider muscle relaxant if able to take PO - warm compress, Tylenol PRN DVT ppx: Lovenox subq
[2020-09-24] MEDS ORDERED: KCL 10 MEQ IVPB 40 MEQ/400 ML INFUS.BAG IVPB ONE (23:25)
[2020-09-24] MEDS: KCL 10 MEQ IVPB 10 MEQ/100 ML INFUS.BAG IVPB SCH (23:36)
[2020-09-24] MEDS: DEXTROSE 5%-NORMAL SALINE 1,000 ML IV SCH (23:36)
[2020-09-25] MEDS ORDERED: PROCHLORPERAZINE INJECTION 10 MG/2 ML VIAL IVPB ONE (00:21)
[2020-09-25 00:40] LABS: MAGNESIUM 2.7 mg/dL (1.8-2.4)
[2020-09-25] MEDS: KCL 10 MEQ IVPB 10 MEQ/100 ML INFUS.BAG IVPB SCH ×3 (00:45→06:11)
[2020-09-25 01:26] LABS: POTASSIUM 3.3 mmol/L (3.5-5.1)
[2020-09-25 01:28] LABS: BLOOD UREA NITROGEN 13.8 mg/dL (7-18); MAGNESIUM 2.3 mg/dL (1.8-2.4)
[2020-09-25 01:32] LABS: CREATININE 0.5 mg/dL (0.55-1.3)
[2020-09-25 01:33] LABS: BILIRUBIN,TOTAL 0.6 mg/dL (0.2-1)
[2020-09-25 01:48] LABS: ALBUMIN 3.4 g/dl (3.4-5.0)
[2020-09-25] MEDS ORDERED: LORazepam 2 MG/ML SDV VIAL IVPUSH ONE (02:43)
[2020-09-25] MEDS: DEXTROSE 5%-NORMAL SALINE 1,000 ML IV SCH (03:27)
[2020-09-25 04:03] VITALS: BMI 20.2
[2020-09-25] MEDS: ACETAMINOPHEN 1000 MG/100 ML VIAL (NON FORMULARY) IVPB PRN ×2 (05:45→12:58)
[2020-09-25] MEDS ORDERED: POTASSIUM CHLORIDE TABS 20 MEQ TABLET.ER (FP) PO ONE (07:54)
[2020-09-25] MEDS ORDERED: THIAMINE HCL 200 MG/2 ML VIAL IVPB ONE (07:58)
[2020-09-25 08:36] LABS: HEMATOCRIT 35.2 % (32.4-45.2); HEMOGLOBIN 11.7 GM/dL (10.7-15.3); MCH 30.6 pg (25.7-33.7); MCHC 33.3 g/dl (32.0-36.0); MEAN PLT VOLUME 9.5 fl (7.5-11.1); PLATELET COUNT 187 K/MM3 (134-434); RBC 3.83 M/mm3 (3.60-5.2); WHITE BLOOD COUNT 5.2 K/mm3 (4.0-10.0)
[2020-09-25 08:51] LABS: POTASSIUM 3.5 mmol/L (3.5-5.1)
[2020-09-25 08:53] LABS: CALCIUM 8.2 mg/dL (8.5-10.1)
[2020-09-25 08:55] LABS: MAGNESIUM 2.4 mg/dL (1.8-2.4)
[2020-09-25 08:56] LABS: ALBUMIN 3.4 g/dl (3.4-5.0)
[2020-09-25 08:57] LABS: CREATININE 0.5 mg/dL (0.55-1.3); PHOSPHOROUS 2.9 mg/dL (2.5-4.9)
[2020-09-25 08:58] LABS: BLOOD UREA NITROGEN 9.5 mg/dL (7-18)
--- NOTE | 2020-09-25 09:37 | EKG ---
Test Reason : Blood Pressure : / mmHG Vent. Rate : 073 BPM Atrial Rate : 073 BPM P-R Int : 128 ms QRS Dur : 084 ms QT Int : 446 ms P-R-T Axes : 071 078 060 degrees QTc Int : 491 ms NORMAL SINUS RHYTHM WITH SINUS ARRHYTHMIA PROLONGED QT ABNORMAL ECG WHEN COMPARED WITH ECG OF 16-JUN-2020 23:27, NO SIGNIFICANT CHANGE WAS FOUND Confirmed by SHANA FELIPE MD ([id number]) on 09/25/2020 9:37:28 AM Referred By: Confirmed By:SHANA FELIPE MD
[2020-09-25] MEDS ORDERED: ENOXAPARIN NA (PORCINE) 40 MG/0.4 ML DISP.SYRIN SQ SCH (10:00)
[2020-09-25] MEDS ORDERED: PROCHLORPERAZINE INJECTION 10 MG/2 ML VIAL IM PRN (10:00)
[2020-09-25] MEDS ORDERED: D5-NS + 20 MEQ KCL - 20 MEQ/1,000 ML INFUS.BAG IV SCH (10:15)
[2020-09-25] MEDS ORDERED: PANTOPRAZOLE SODIUM 40 MG VIAL IVPUSH SCH (10:15)
[2020-09-25 12:22] LABS: EPI CELLS >36 /uL (0-25.1); HYALINE CASTS 12 /uL (0-3.1); URINE APPEARANCE CLEAR; URINE BACTERIA 1383 /uL (0-1359); URINE BILIRUBIN NEGATIVE (NEGATIVE); URINE COLOR YELLOW; URINE GLUCOSE (UA) NEGATIVE (NEGATIVE); URINE KETONE 1+ (NEGATIVE); URINE LEUK ESTERASE NEGATIVE (NEGATIVE); URINE NITRITE NEGATIVE (NEGATIVE); URINE PROTEIN 1+ (NEGATIVE); URINE WBC 53 /uL (0-25.8)
[2020-09-25 12:30] LABS: PHENCYCLIDINE,URINE NEGATIVE ng/ml (CUTOFF=25); URINE AMPHETAMINES NEGATIVE ng/ml (CUTOFF=500); URINE BARBITURATES NEGATIVE ng/ml (CUTOFF=200)
[2020-09-25 12:31] LABS: COCAINE, UR NEGATIVE ng/ml (CUTOFF=300)
[2020-09-25 12:32] LABS: METHADONE, UR NEGATIVE ng/ml (CUTOFF=300)
[2020-09-25 12:37] LABS: OPIATES, URI POSITIVE ng/ml (CUTOFF=300); URINE BENZODIAZEPINES POSITIVE ng/ml (CUTOFF=200)
[2020-09-25 12:42] LABS: URINE RBC 15.5 /uL (0-23.9)
--- NOTE | 2020-09-25 12:49 | PN ---
Physical Exam: SUBJECTIVE: Patient seen and examined at bedside. Patient crying in pain, reports she has generalized body muscle spasms that last for 10 seconds and don't go away. OBJECTIVE: Vital Signs Period Temp Pulse Resp BP Sys/Shields Pulse Ox Last 24 Hr 97.8 F-98.4 F 67-92 16-18 87-118/49-76 98-100 GENERAL: The patient is awake, alert, and fully oriented, in no acute distress. HEAD: Normal with no signs of trauma. LUNGS: Breath sounds equal, clear to auscultation bilaterally, no wheezes, no crackles, no accessory muscle use. HEART: Regular rate and rhythm, S1, S2 without murmur, rub or gallop. ABDOMEN: Soft nondistended, normoactive bowel sounds, guarding, EXTREMITIES: 2+ pulses, warm, well-perfused, no edema. Laboratory Results - last 24 hr 09/24/20 09/24/20 09/24/20 17:00 17:00 17:00 WBC 6.3 RBC 5.37 H Hgb 16.7 H Hct 49.2 H D MCV 91.7 MCH 31.1 MCHC 33.9 RDW 13.1 Plt Count 313 D MPV 9.7 Absolute Neuts (auto) 4.3 Neutrophils % 68.5 D Lymphocytes % 19.7 D Monocytes % 10.6 H Eosinophils % 0.2 D Basophils % 1.0 Nucleated RBC % 0 Sodium 129 L Potassium 3.7 Chloride 87 L Carbon Dioxide 28 Anion Gap 14 BUN 16.6 Creatinine 0.9 Est GFR (CKD-EPI)AfAm 101.56 Est GFR (CKD-EPI)NonAf 87.63 Random Glucose 96 Calcium 10.9 H Phosphorus Magnesium 2.7 H Total Bilirubin 1.4 H Direct Bilirubin AST 28 ALT 23 Alkaline Phosphatase 68 Total Protein 10.6 H Albumin 5.8 H Serum , Qual Negative Urine Color Urine Appearance Urine pH Ur Specific Jbphh Urine Protein Urine Glucose (UA) Urine Ketones Urine Blood Urine Nitrite Urine Bilirubin Urine Urobilinogen Ur Leukocyte Esterase Urine WBC (Auto) Urine RBC (Auto) Urine Casts (Auto) U Pathogenic Cast Auto U Epithel Cells (Auto) U Sm Round Cell (Auto) Urine Bacteria (Auto) Opiates Screen Methadone Screen Barbiturate Screen Phencyclidine Screen Ur Amphetamines Screen MDMA (Ecstasy) Screen Benzodiazepines Screen Cocaine Screen U Marijuana (THC) Screen 09/25/20 09/25/20 09/25/20 00:30 07:10 07:10 WBC 5.2 RBC 3.83 Hgb 11.7 Hct 35.2 D MCV 92.0 MCH 30.6 MCHC 33.3 RDW 13.0 Plt Count 187 D MPV 9.5 Absolute Neuts (auto) Neutrophils % Lymphocytes % Monocytes % Eosinophils % Basophils % Nucleated RBC % Sodium 133 L 136 Potassium 3.3 L 3.5 Chloride 100 102 Carbon Dioxide 27 28 Anion Gap 7 L 7 L BUN 13.8 9.5 Creatinine 0.5 L 0.5 L Est GFR (CKD-EPI)AfAm 153.73 153.73 Est GFR (CKD-EPI)NonAf 132.64 132.64 Random Glucose 168 H 92 Calcium 8.0 L 8.2 L Phosphorus 2.9 Magnesium 2.3 2.4 Total Bilirubin 0.6 1.0 Direct Bilirubin AST 11 L 10 L ALT 14 13 Alkaline Phosphatase 39 L 38 L Total Protein 6.0 L 6.0 L Albumin 3.4 3.4 Serum , Qual Urine Color Urine Appearance Urine pH Ur Specific Jbphh Urine Protein Urine Glucose (UA) Urine Ketones Urine Blood Urine Nitrite Urine Bilirubin Urine Urobilinogen Ur Leukocyte Esterase Urine WBC (Auto) Urine RBC (Auto) Urine Casts (Auto) U Pathogenic Cast Auto U Epithel Cells (Auto) U Sm Round Cell (Auto) Urine Bacteria (Auto) Opiates Screen Methadone Screen Barbiturate Screen Phencyclidine Screen Ur Amphetamines Screen MDMA (Ecstasy) Screen Benzodiazepines Screen Cocaine Screen U Marijuana (THC) Screen 09/25/20 09/25/20 09/25/20 07:10 09:29 09:29 WBC RBC Hgb Hct MCV MCH MCHC RDW Plt Count MPV Absolute Neuts (auto) Neutrophils % Lymphocytes % Monocytes % Eosinophils % Basophils % Nucleated RBC % Sodium Potassium Chloride Carbon Dioxide Anion Gap BUN Creatinine Est GFR (CKD-EPI)AfAm Est GFR (CKD-EPI)NonAf Random Glucose Calcium Phosphorus Magnesium Total Bilirubin Direct Bilirubin 0.2 AST ALT Alkaline Phosphatase Total Protein Albumin Serum , Qual Urine Color Yellow Urine Appearance Clear Urine pH 7.0 D Ur Specific Jbphh 1.031 Urine Protein 1+ H Urine Glucose (UA) Negative Urine Ketones 1+ H Urine Blood 3+ H Urine Nitrite Negative Urine Bilirubin Negative Urine Urobilinogen 1.0 Ur Leukocyte Esterase Negative Urine WBC (Auto) 53 Urine RBC (Auto) 15.5 Urine Casts (Auto) 12 U Pathogenic Cast Auto No seen U Epithel Cells (Auto) >36 U Sm Round Cell (Auto) No seen Urine Bacteria (Auto) 1383 Opiates Screen Positive A* Methadone Screen Negative Barbiturate Screen Negative Phencyclidine Screen Negative Ur Amphetamines Screen Negative MDMA (Ecstasy) Screen Negative Benzodiazepines Screen Positive A* Cocaine Screen Negative U Marijuana (THC) Screen Positive A* Active Medications Generic Name Dose Route Start Last Admin Trade Name Freq PRN Reason Stop Dose Admin Acetaminophen 1,000 mg 09/25/20 00:09 09/25/20 05:45 Ofirmev Injection - IVPB 09/26/20 00:09 1,000 mg Q6H PRN Administration PAIN LEVEL 6-10 Enoxaparin Sodium 40 mg 09/25/20 10:00 09/25/20 10:26 Lovenox - SQ 40 mg DAILY KWAME Administration Dextrose/Sodium Chloride 20 meq in 1,000 mls @ 125 mls/hr 09/25/20 10:15 09/25/20 10:26 Dextrose 5%-Normal Saline+20 Meq Kcl - IV 125 mls/hr ASDIR KWAME Administration Pantoprazole Sodium 40 mg 09/25/20 10:15 09/25/20 10:27 Protonix Iv IVPUSH 40 mg DAILY KWAME Administration Prochlorperazine Edisylate 5 mg 09/25/20 10:00 Compazine Injection - IM Q4H PRN NAUSEA AND/OR VOMITING Sucralfate 1 gm 09/25/20 22:00 Carafate - PO BID KWAME ASSESSMENT/PLAN: Ms. Schwartz is a 25AAF w history of peptic ulcer disease, gastritis, and previous visit in May for marijana induced hyperemesis who presented to the emergency department for persistent vomiting for 4 days admitted for intractable vomiting. 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 to monitor and replete as appropriate # DVT ppx - Lovenox: 40 sq Daily - SCD'S - Early ambulation # Disposition - Admit to med-surg ATTENDING PHYSICIAN STATEMENT I saw and evaluated the patient. I reviewed the resident's note and discussed the case with the resident. I agree with the resident's findings and plan as documented. SUBJECTIVE: OBJECTIVE: ASSESSMENT AND PLAN:
[2020-09-25 13:28] VITALS: BP 95/51; PULSE 72; TEMP 98.8
[2020-09-25] MEDS ORDERED: CYCLOBENZAPRINE HCL 10 MG TABLET (FP) PO ONE (14:00)
--- NOTE | 2020-09-25 15:19 | PN ---
Teaching Attending Note Name of Resident: Vinod Rick ATTENDING PHYSICIAN STATEMENT I saw and evaluated the patient. I reviewed the resident's note and discussed the case with the resident. I agree with the resident's findings and plan as documented. SUBJECTIVE: seen at around 11 am No fever or chills. she denies using chronci marijuana. she has cramps in her body, no N/v since here. saw some blood with vomit at home . denies dysuria or frequency and denies any visual changes. has a minimal WILSON in R samaritan fro few days . no weakness. tinglingn in her extremities OBJECTIVE: NAD, awake, alert, cooperative . No facail droop dry MM CV: RRR, no MRG Lungs: CTAB Abd: soft, ND, NT, but had a cramp in her L sided abd which resolved with massaging it . No edema on upper or lower extremities could not perform neuro exam , due to recurrent cramps but per medical student , no focal deficits were found ASSESSMENT AND PLAN: 25 y/o lady with h/o marijuana use, PUD, gastritis, recent admission with hyperemesis who presented with N/V. She was found to have hypotension , hyp onatremia, and electrolytes abnormalities 1- N/v, due to marijuana hyperemesis /cyclic vomiting syndrome : resolved. no vomiting in house 2- Hyponatremia , due to hypovolemia . imrpoved with IVF 3- asymptomatic pyuria : will not treat 4- hypokalemia :R esolved 5- Muscle spasms: due to volume depletion and electrolytes abnormalities. and possibly the marijuana 6- anxiety . /panic attack ( in afternoon ) 7- possible Shea Wright tear. no recurrence 8- hypotension due to hypovolemia,improved plan : - increase rate of D5 NS and add Kcl. can decrease tomorrow if appropriate - monitor electrolytes - Hb dropped from 16 -11 but this is likely dilutional as her Hb was 11 on 06/19/20 after she was hydrated. I do not suspect significant bleed . - reepat Hb . - check FOBT - keep electrolytes in normal range and hydrate to avoid spasms. try a dose of flexeril - use tylenol - avoid narcotics - consult psychotherapist - BP improved . was hypovolemic dispo : OC
--- NOTE | 2020-09-25 15:56 | CON.PSL ---
Psychology Consult History Provided By: Patient, Medical Record, Caregiver Limitations to Obtaining History: No Limitations Current Medications: Active Medications Acetaminophen (Ofirmev Injection -) 1,000 mg IVPB Q6H PRN PRN Reason: PAIN LEVEL 6-10 Stop: 09/26/20 00:09 Last Admin: 09/25/20 12:58 Dose: 1,000 mg Documented by: Enoxaparin Sodium (Lovenox -) 40 mg SQ DAILY [facility] Last Admin: 09/25/20 10:26 Dose: 40 mg Documented by: Dextrose/Sodium Chloride (Dextrose 5%-Normal Saline+20 Meq Kcl -) 20 meq in 1,000 mls @ 125 mls/hr IV ASDIR [facility] Last Admin: 09/25/20 10:26 Dose: 125 mls/hr Documented by: Pantoprazole Sodium (Protonix Iv) 40 mg IVPUSH DAILY [facility] Last Admin: 09/25/20 10:27 Dose: 40 mg Documented by: Prochlorperazine Edisylate (Compazine Injection -) 5 mg IM Q4H PRN PRN Reason: NAUSEA AND/OR VOMITING Last Admin: 09/25/20 14:48 Dose: 5 mg Documented by: Sucralfate (Carafate -) 1 gm PO BID [facility] Allergies: Allergies Allergy/AdvReac Type Severity Reaction Status Date / Time naproxen Allergy Verified 09/24/20 18:05 Does patient have pain?: Yes Pain Location Body Site: Temporal Pain Description: Radiating Pain Intensity: 8 Hx Alcohol Use: No Hx Substance Use: Yes Substance Use Type: Marijuana (Lasat two days, not before.) Hx Substance Use Treatment: No Current Medical Exam-Psy Attention: Alert Orientation: Time, Person, Place Immediate Term Memory: 3/3 Expressive: Coherent Receptive: Age Appropriate Comprehension of Spoken Words Hallucinations: Absent Thought Process: Intact Depression: Moderate Hopelessness: No Loss of Interest: Yes Anxiety Level: Panic (Had 2 attacks today.) Danger to Self and Others: No Sleep: Poorly Appetite: Poor, Weight loss Serial Sevens Intact: Yes Repeats 3 words told earlier: 2/3 Support System: None Problem List - Problem (1) Depressed Assessment/Plan: The patient requires outpatient care. She should be evaluated for psychotropics in respect to both her anxiety and depression. In particular, it is noteworthy that she has been experiencing panic attacks. Code(s): F32.9 - MAJOR DEPRESSIVE DISORDER, SINGLE EPISODE, UNSPECIFIED Qualifiers: Major depression recurrence: unspecified whether recurrent Active/Remission status: currently active Major depression episode severity: severe Psychotic features: without psychotic features (2) Anxiety Code(s): F41.9 - ANXIETY DISORDER, UNSPECIFIED Assessment/Plan The patient is trying to cope with her "mom's serious illnesses". In actuality she is her biological grandmother who had raised her. Because of the situation, we could not explore further but she has one brother in [place] and the brother who lives locally is not able to assist. The patient is feeling overwhelmed and does not have the support that would be of benefit to her. She should receive out patient psychotherapy with medication management. Please feel free to contact me for further suggestions if desired. It appears that I participate in [employer] and can offer psychotherapy on an outpatient basis.
[2020-09-25] MEDS ORDERED: SUCRALFATE 1 GM TABLET (FP) PO SCH (22:00)
== END 2020-09-25 16:21 | disposition left against medical advice (07) | DRG 249 ==
LOC: JER 16:03 → JERBED 22:06 → J7W 09-25 02:40
PROVIDERS: ADMIT Hospitalist; ATTEND Internal Medicine
DX: R11.15 Cyclical vomiting syndrome unrelated to migraine (principal); E87.1 Hypo-osmolality and hyponatremia; M62.838 Other muscle spasm; F41.8 Other specified anxiety disorders; F12.20 Cannabis dependence, uncomplicated; K29.70 Gastritis, unspecified, without bleeding; R71.0 Precipitous drop in hematocrit; F41.0 Panic disorder [episodic paroxysmal anxiety]; I95.9 Hypotension, unspecified; E87.6 Hypokalemia; R82.81 Pyuria; E86.1 Hypovolemia; E87.8 Other disorders of electrolyte and fluid balance, not elsewhere classified; E80.6 Other disorders of bilirubin metabolism; E86.0 Dehydration; Z87.11 Personal history of peptic ulcer disease
CPT/HCPCS: 36415; 71045-TC-FY; 80053; 80307; 81003; 82248; 83735; 84100; 84703; 85025; 85027; 93005; 93010; 99285-25; C9803; J0131; U0003

== ENCOUNTER 2022-07-07 17:55 | Inpatient (IN) | payer BC ==
[2022-07-07] MEDS ORDERED: ACETAMINOPHEN 1000 MG/100 ML BAG IVPB ONE (19:43)
[2022-07-07] MEDS ORDERED: morphine CARPU-JECT 4 MG/1 ML DISP.SYRIN IVPUSH ONE (19:43)
[2022-07-07] MEDS ORDERED: SODIUM CHLORIDE 0.9% 500 ML INFUS.BAG IV ONE ×2 (19:44→21:57)
[2022-07-07] MEDS ORDERED: ONDANSETRON 4 MG/2 ML VIAL IVPUSH ONE (19:51)
[2022-07-07] MEDS ORDERED: morphine SULFATE 4 MG/ML VIAL ONE (19:52)
[2022-07-07] MEDS ORDERED: ACETAMINOPHEN INJECTION 100 ML IVPB ONE (19:53)
[2022-07-07] MEDS ORDERED: ONDANSETRON 4 MG/2 ML VIAL ONE (19:53)
[2022-07-07 20:36] LABS: BASO % 0.9 % (0-2.0); EOS % 0.5 % (0-4.5); HEMATOCRIT 42.8 % (32.4-45.2); LYMPH % 27.6 % (8-40); MCH 31.9 pg (25.7-33.7); MCHC 35.1 g/dl (32.0-36.0); MEAN CELL VOLUME 90.7 fl (80-96); MEAN PLT VOLUME 8.4 fl (7.5-11.1); MONO % 11.4 % (3.8-10.2); NEUT % 59.6 % (42.8-82.8); PLATELET COUNT 289 10^3/uL (134-434); RBC 4.71 M/mm3 (3.60-5.2); RDW 13.1 % (11.6-15.6); WHITE BLOOD COUNT 7.2 K/mm3 (4.0-10.0)
[2022-07-07 20:38] LABS: HCG,QUALITATIVE URINE Positive
[2022-07-07 20:43] LABS: INR 1.12 (0.83-1.09); PROTHROMBIN TIME (PATIENT) 12.9 SEC (9.7-13.0)
[2022-07-07 20:46] LABS: ACTIVATED PTT 29.9 SECONDS (25.2-36.5)
[2022-07-07 20:51] LABS: CALCIUM 10.9 mg/dL (8.5-10.1)
[2022-07-07 20:52] LABS: BLOOD UREA NITROGEN 15.3 mg/dL (7-18)
[2022-07-07 20:54] LABS: CREATININE 0.9 mg/dL (0.55-1.3)
[2022-07-07 20:56] LABS: BILIRUBIN,TOTAL 1.2 mg/dL (0.2-1)
[2022-07-07 21:48] LABS: EPI CELLS 22 /uL (0-25.1); HYALINE CASTS 1 /uL (0-3.1); URINE APPEARANCE CLOUDY; URINE BACTERIA 324 /uL (0-1359); URINE BILIRUBIN NEGATIVE (NEGATIVE); URINE COLOR YELLOW; URINE GLUCOSE (UA) NEGATIVE (NEGATIVE); URINE KETONE TRACE (NEGATIVE); URINE LEUK ESTERASE NEGATIVE (NEGATIVE); URINE NITRITE NEGATIVE (NEGATIVE); URINE PROTEIN 1+ (NEGATIVE); URINE RBC 4 /uL (0-23.9); URINE WBC 8 /uL (0-25.8)
[2022-07-07] MEDS ORDERED: FAMOTIDINE 20 MG/50 ML IVPB 20 MG/50 ML MG IVPB ONE ×2 (22:16→22:19)
[2022-07-08] MEDS: METOCLOPRAMIDE HCL INJECTION 10 MG/2 ML VIAL IVPUSH PRN ×2 (01:40→07:41)
[2022-07-08] MEDS ORDERED: SODIUM CHLORIDE 1,000 ML IV SCH (02:30)
[2022-07-08 03:14] VITALS: BMI 22.1
[2022-07-08 05:55] LABS: HEMATOCRIT 36.2 % (32.4-45.2); HEMOGLOBIN 12.8 GM/dL (10.7-15.3); MCH 31.9 pg (25.7-33.7); MCHC 35.4 g/dl (32.0-36.0); MEAN CELL VOLUME 90.1 fl (80-96); MEAN PLT VOLUME 8.7 fl (7.5-11.1); PLATELET COUNT 235 10^3/uL (134-434); RBC 4.01 M/mm3 (3.60-5.2); WHITE BLOOD COUNT 7.2 K/mm3 (4.0-10.0)
[2022-07-08 06:16] LABS: BLOOD UREA NITROGEN 12.3 mg/dL (7-18); MAGNESIUM 1.9 mg/dL (1.8-2.4)
[2022-07-08 06:19] LABS: CREATININE 0.5 mg/dL (0.55-1.3); PHOSPHOROUS 3.8 mg/dL (2.5-4.9)
[2022-07-08 06:48] LABS: CALCIUM 8.8 mg/dL (8.5-10.1)
[2022-07-08] MEDS ORDERED: ONDANSETRON 8 MG TABLET (FP) PO PRN (09:04)
[2022-07-08] MEDS ORDERED: POTASSIUM CHLORIDE TABS 20 MEQ TABLET.ER (FP) PO ONE (09:04)
[2022-07-08] MEDS ORDERED: ONDANSETRON 4 MG TABLET PO PRN (09:06)
[2022-07-08 09:12] LABS: EPI CELLS >36 /uL (0-25.1); HYALINE CASTS 6 /uL (0-3.1); URINE APPEARANCE TURBID; URINE BACTERIA 898 /uL (0-1359); URINE BILIRUBIN NEGATIVE (NEGATIVE); URINE COLOR YELLOW; URINE GLUCOSE (UA) NEGATIVE (NEGATIVE); URINE KETONE 2+ (NEGATIVE); URINE LEUK ESTERASE 1+ (NEGATIVE); URINE NITRITE NEGATIVE (NEGATIVE); URINE PROTEIN TRACE (NEGATIVE); URINE RBC 4 /uL (0-23.9); URINE WBC 64 /uL (0-25.8)
[2022-07-08] MEDS ORDERED: DEXTROSE 5%-WATER - 1,000 ML IV SCH (09:15)
[2022-07-08 09:24] LABS: COCAINE, UR NEGATIVE (NEGATIVE); METHADONE, UR NEGATIVE (NEGATIVE); URINE AMPHETAMINES NEGATIVE (NEGATIVE); URINE BARBITURATES NEGATIVE (NEGATIVE)
[2022-07-08 09:25] LABS: PHENCYCLIDINE,URINE NEGATIVE (NEGATIVE)
[2022-07-08 09:28] LABS: OPIATES, URI POSITIVE (NEGATIVE); URINE BENZODIAZEPINES NEGATIVE (NEGATIVE)
[2022-07-08] MEDS: ACETAMINOPHEN 500 MG TABLET (FP) PO PRN ×2 (09:56→10:00)
[2022-07-08] MEDS: PYRIDOXINE HCL (B-6) 50 MG TABLET (FP) PO SCH ×2 (09:56→10:00)
[2022-07-08] MEDS ORDERED: PANTOPRAZOLE SODIUM 40 MG VIAL IVPUSH SCH (10:00)
[2022-07-08 10:37] VITALS: BP 104/66; PULSE 73; RESP 18; TEMP 99
== END 2022-07-08 14:30 | disposition home or self-care (01) | DRG 249 ==
LOC: JER 17:55 → JERBED 22:24 → J3W 07-08 02:15
PROVIDERS: ADMIT Internal Medicine; ATTEND Internal Medicine
DX: R11.2 Nausea with vomiting, unspecified (principal); F12.10 Cannabis abuse, uncomplicated; F11.10 Opioid abuse, uncomplicated; Z87.11 Personal history of peptic ulcer disease; Z33.1 Pregnant state, incidental; Z3A.01 Less than 8 weeks gestation of pregnancy
CPT/HCPCS: 36415; 76817-TC; 80053; 80307; 81003; 82150; 83690; 83735; 84100; 84702; 84703; 85025; 85027; 85610; 85730; 86850; 86900; 86901; 87077; 87086; 99285-25; C9803-CS; U0003; U0005

== ENCOUNTER 2023-09-15 19:14 | Emergency (ER) | payer BC ==
[2023-09-15 19:20] VITALS: RESP 16; BMI 23.0
[2023-09-15] MEDS ORDERED: morphine SULFATE 4 MG/ML VIAL IVPUSH ONE (21:33)
[2023-09-15] MEDS ORDERED: ONDANSETRON 4 MG/2 ML VIAL IVPUSH ONE (21:33)
[2023-09-15] MEDS ORDERED: ONDANSETRON 4 MG/2 ML VIAL ONE (22:02)
[2023-09-15] MEDS ORDERED: HALOPERIDOL LACTATE 5 MG/ML IM ONE (22:04)
[2023-09-15] MEDS ORDERED: HALOPERIDOL LACTATE 5 MG/ML ONE (22:16)
[2023-09-15 22:19] LABS: BASO % 0.5 % (0-2.0); EOS % 0.2 % (0-4.5); HEMATOCRIT 42.3 % (32.4-45.2); HEMOGLOBIN 14.1 GM/dL (10.7-15.3); LYMPH % 13.1 % (8-40); MCHC 33.4 g/dl (32.0-36.0); MEAN CELL VOLUME 92.9 fl (80-96); MEAN PLT VOLUME 8.8 fl (7.5-11.1); MONO % 4.6 % (3.8-10.2); NEUT % 81.6 % (42.8-82.8); PLATELET COUNT 295 10^3/uL (134-434); RBC 4.56 M/mm3 (3.60-5.2); RDW 12.8 % (11.6-15.6); WHITE BLOOD COUNT 7.4 K/mm3 (4.0-10.0)
[2023-09-15 22:26] LABS: INR 1.05 (0.83-1.09); PROTHROMBIN TIME (PATIENT) 12.2 SEC (9.7-13.0)
[2023-09-15 22:28] LABS: ACTIVATED PTT 28.2 SECONDS (25.2-36.5)
[2023-09-15 22:41] LABS: BLOOD UREA NITROGEN 14.1 mg/dL (7-18); CALCIUM 9.4 mg/dL (8.5-10.1)
[2023-09-15 22:42] LABS: ALBUMIN 4.4 g/dl (3.4-5.0); MAGNESIUM 2.2 mg/dL (1.8-2.4)
[2023-09-15 22:44] LABS: CREATININE 0.8 mg/dL (0.55-1.3)
[2023-09-15 22:46] LABS: BILIRUBIN,TOTAL 0.6 mg/dL (0.2-1); TOT PROT 8.2 g/dl (6.4-8.2)
[2023-09-15 23:05] VITALS: BP 91/52; PULSE 73; TEMP 98.6
[2023-09-16] MEDS ORDERED: LACTULOSE 20 GM/30 ML UDC (FOR ORAL USE ONLY) PO ONE (01:11)
[2023-09-16] MEDS ORDERED: LACTULOSE 20 GM/30 ML UDC (FOR ORAL USE ONLY) ONE (01:14)
[2023-09-16] MEDS ORDERED: POLYETHYLENE GLYCOL (HEALTHYLAX) 3350 17 GM PACKET PO ONE (01:15)
[2023-09-16] MEDS: LACTATED RINGERS SOLUTION 1000 ML INFUS.BAG IV ONE ×2 (01:19→01:23)
[2023-09-16 03:45] LABS: EPI CELLS 14 /uL (0-25.1); HYALINE CASTS 5 /uL (0-3.1); PH,URINE 8.5 (5.0-8.0); URINE APPEARANCE CLEAR; URINE BACTERIA 46 /uL (0-1359); URINE BILIRUBIN NEGATIVE (NEGATIVE); URINE COLOR YELLOW; URINE GLUCOSE (UA) NEGATIVE (NEGATIVE); URINE KETONE 1+ (NEGATIVE); URINE LEUK ESTERASE NEGATIVE (NEGATIVE); URINE NITRITE NEGATIVE (NEGATIVE); URINE PROTEIN 1+ (NEGATIVE); URINE RBC 9 /uL (0-23.9); URINE UROBILINOGEN 0.2 mg/dL (0.2-1.0); URINE WBC 7 /uL (0-25.8)
== END 2023-09-16 02:01 | disposition home or self-care (01) ==
LOC: JER 19:14
PROC: 3E033GC Introduction of Other Therapeutic Substance into Peripheral Vein, Percutaneous Approach (ICD-10-PCS; principal; 2023-09-15)
PROC: 3E033GC Introduction of Other Therapeutic Substance into Peripheral Vein, Percutaneous Approach (ICD-10-PCS; 2023-09-15)
PROC: 3E023GC Introduction of Other Therapeutic Substance into Muscle, Percutaneous Approach (ICD-10-PCS; 2023-09-15)
DX: R10.84 Generalized abdominal pain (principal); R14.1 Gas pain; K59.00 Constipation, unspecified; R11.2 Nausea with vomiting, unspecified; R42 Dizziness and giddiness; M79.10 Myalgia, unspecified site
CPT/HCPCS: 36415; 71046-TC-FY; 74177-TC; 80053; 81003; 83690; 83735; 84439; 84443; 84484; 84703; 85025; 85610; 85730; 86850; 86900; 86901; 87086; 93005; 93010; 99291